=== PATIENT | female | born 1975 | race Caucasian/White ===

== ENCOUNTER → 2016-05-08 | Outpatient (CLI) | payer OTHER ==
[~2016-05-08] MED LIST: ADVIN25/60 INH; ALBU18002 INH; AMIT25TA9 PO; ARIP1TAB8 PO; CLONAZEPAM PO; FLUO40CA8 PO
--- NOTE | 2016-05-09 17:13 | MAMMOGRAPHY REPORT ---
BILATERAL DIGITAL SCREENING MAMMOGRAM TOMOSYNTHESIS WITH CAD: 05/08/2016 CLINICAL HISTORY: Routine screening. Baseline exam. TECHNIQUE: Breast tomosynthesis in addition to standard 2D mammography was performed. Current study was also evaluated with a Computer Aided Detection (CAD) system. COMPARISON: No prior exams were available for comparison. BREAST COMPOSITION: The tissue of both breasts is heterogeneously dense, which may obscure small ma sses. FINDINGS: There is a 10 mm nodular asymmetry in the lateral middle one third of the right breast on the CC view with an equivocal mass on the corresponding tomosynthesis images. Although this could represent normal overlapping tissue, additional spot compression tomosynthesis views and possibly ul trasound are recommended. There are possible microcalcifications in the medial right breast, warran ting additional spot magnification views. No other suspicious mass, architectural distortion or cluster of microcalcifications is seen bilater ally. IMPRESSION: ACR BI-RADS CATEGORY 0: INCOMPLETE EVALUATION: NEED ADDITIONAL IMAGING EVALUATION The 10 mm asymmetry in the lateral right breast and possible microcalcifications in the medial right breast need additional imaging evaluation. The patient will be called to schedule an appointment. Approximately 10% of breast cancers are not detected with mammography. A negative mammographic repor t should not delay biopsy if a clinically suggestive mass is present. Mariela Maier M.D. ay/:05/09/2016 15:36:41 Willow Machine Operator: Vangie GOVEA(Vahid)(Shelbi), [facility] letter sent: Addl Imaging 0 BI-RADS Code: ACR BI-RADS Category 0: Incomplete Evaluation: Need Additional Imaging Evaluation
== END | disposition home or self-care (01) ==
LOC: MERGE 05-01 10:55 → UNMERGE 05-01 10:55 → C.MAMM 09:26
PROVIDERS: ATTEND Obstetrics & Gynecology
DX: Z12.31 Encounter for screening mammogram for malignant neoplasm of breast (principal); N64.89 Other specified disorders of breast

== ENCOUNTER → 2016-05-28 | Outpatient (CLI) | payer OTHER ==
--- NOTE | 2016-05-29 12:26 | MAMMOGRAPHY REPORT ---
UNILATERAL RIGHT DIGITAL DIAGNOSTIC MAMMOGRAM TOMOSYNTHESIS AND TARGETED RIGHT ULTRASOUND: 05/28/2016 CLINICAL HISTORY: 40-year-old woman called back from baseline screening mammogram for a possible lob ulated 12 mm mass in the lateral right breast and possible microcalcifications in the medial right b reast. TECHNIQUE: Spot compression tomosynthesis right CC and ML views and spot magnification right CC and ML views were obtained. COMPARISON: Comparison is made to exam dated: 05/08/2016 mammogram - [facility]. BREAST COMPOSITION: The tissue of the right breast is heterogeneously dense, which may obscure smal l masses. FINDINGS: Spot magnification views of the right medial breast demonstrate a single linear calcifica tion along a tubular blood vessel in the medial breast, compatible with minimal vascular calcificati on. There is no evidence of a suspicious cluster of microcalcifications within the breast. Spot compression tomosynthesis views of the right breast demonstrate persistence of a 6.6 x 11.0 mm lobulated and circumscribed mass in the upper outer middle one third of the breast. Further charact erization with ultrasound was performed. Real-time high-resolution ultrasound was performed in the lateral right breast. In the 11:00 axis, 4 cm from the nipple, there is an isoechoic lobulated triangular mass without significant increased vascularity. It measures approximately 6.3 x 5.0 x 7.4 mm and this location and shape correlate wel l with the mammographic mass. This is indeterminate and could represent an isoechoic fibroadenoma o r fibroadenolipoma. Definitive characterization with tissue sampling is recommended. IMPRESSION: ACR BI-RADS CATEGORY 4: SUSPICIOUS, TARGETED ULTRASOUND ACR BI-RADS CATEGORY 4: SUSPICI OUS 1. Ultrasound guided core needle biopsy is recommended for an indeterminate isoechoic solid 7 mm ma ss in the 11:00 right breast which could represent a fibroadenoma or fibroadenolipoma. 2. The possible microcalcifications in the medial right breast simply represent a single linear alaina cification along the blood vessel, which is benign. No further workup is needed at this time. These results and recommendations were discussed with the patient at the time of the exam. She tent atively scheduled the right breast ultrasound guided core biopsy prior to leaving our department. Approximately 10% of breast cancers are not detected with mammography. A negative mammographic repor t should not delay biopsy if a clinically suggestive mass is present. Mariela Maier M.D. ay/:05/28/2016 14:49:58 Miller Helper: Ro POOLE)(M), [facility] letter sent: Abnormal 4/5 BI-RADS Code: ACR BI-RADS Category 4: Suspicious Ultrasound BI-RADS: ACR BI-RADS Category 4: Suspic ious
== END | disposition home or self-care (01) ==
LOC: C.MAMM 13:43
PROVIDERS: ATTEND Obstetrics & Gynecology
DX: N63 Unspecified lump in breast (principal); R92.0 Mammographic microcalcification found on diagnostic imaging of breast

== ENCOUNTER → 2016-06-11 | Outpatient (CLI) | payer OTHER ==
--- NOTE | 2016-06-11 13:36 | Discharge Instructions ---
Discharge Instructions Procedure Procedure Date: Jun 11, 2016. Reason for visit: Right Mass. Discharge Discharge Date: Jun 11, 2016. Discharge Diagnosis: post right breast ultrasound guided core biopsy Instructions Activity Recommendations: Additional Limitations (see below) Return to School/Work: no limitations Recommended Home Diet: No Limitations Provider Instructions: ACTIVITY RECOMMENDATIONS: * No lifting, pushing, pulling or exercising the affected side for three days. RETURN TO SCHOOL/WORK: * You may return to work/school after the procedure, but do not perform any strenuous activities for 24 to 48 hours. MEDICATIONS: * Tylenol (two 325 mg) every four to six hours if needed for mild pain (if not allergic to Tylenol). DIET: * Resume previous diet. SPECIAL CARE INSTRUCTIONS: * Keep biopsy site dry for 24 hours. May shower after 24 hours, but do not soak (bathe) incision. * May remove Tegaderm (plastic patch) tomorrow AFTER showering. * Leave the steri-strips on for one week. Allow the steri-strips to fall off by themselves. If not off after one week, you may remove them. You may place a Bandaid crosswise over the strips, if desired. * Apply ice 10 minutes on and 10 minutes off as needed. * Wear a bra at bedtime to sleep more comfortably for 2-3 days. * Your referring physician should have the results after approximately 5 to 7 business days. * Call for unusual bleeding, fever, drainage, etc or if you have any questions call [phone] during normal business hours or after hours call Dr Maier, . FOLLOW UP VISIT: Follow-up with Referring Physician as scheduled. Allergies Coded Allergies: ALLERGY2 (Verified Adverse Reaction, Severe, HIVES, 02/06/13) SKIN EACTION (RASH, BLISTERING, ITCHING, HIVES) RE[place]ED [place] [facility] [place] WYATT DOMINGUEZ Recommendations: Call your doctor if: * Temperature above 101 degrees * Pain not relieved by pain medicine ordered * There is increased drainage or redness from any incision * You have any unanswered questions or concerns. Your Doctors Instructions noted above were prepared by provider Mariela Maier. Patient Signature Section: Patient Instructions Signature Page Mary Mukherjee Patient (or Guardian) Signature/Date: I have read and understand the instructions given to me by my caregivers. Caregiver/RN/Doctor Signature/Date: The above-named patient and/or guardian has received patient instructions on this date. + Original Patient Signature Page (only) stays with chart. Please make copy for patient.
--- NOTE | 2016-06-11 16:08 | MAMMOGRAPHY REPORT ---
ULTRASOUND GUIDED BIOPSY RIGHT BREAST: 06/11/2016 CLINICAL HISTORY: 40 year-old woman with an indeterminate isoechoic solid mass in the 11:00 right br east presents for ultrasound guided core needle biopsy. COMPARISON: Comparison is made to exams dated: 05/28/2016 ultrasound, 05/28/2016 mammogram, 05/08/2016 mammogram, and 06/11/2016 mammogram - [facility]. PATIENT CONSENT: The procedure, risks and benefits were discussed with the patient and informed writ ten consent was obtained. Specific risks to this procedure include: bleeding, infection, puncture of adjacent structure, nontarget biopsy, sampling error, metal allergy and medication reaction. PROCEDURE DESCRIPTION: A time out was performed and the right breast was agreed as the site of biops y. The skin was prepped and draped in the usual sterile fashion. The isoechoic solid mass in the 11: 00 right breast was chosen as the target for biopsy. Subcutaneous and intraparenchymal 1% buffered l idocaine was administered as local anesthesia. A skin incision was made. Through the incision, 3 sa mples were taken with a 14 gauge Achieve biopsy device. A metallic marker was placed at the biopsy s ite. Hemostasis was achieved after manual compression. The patient tolerated the procedure well and there was no immediate complication. The samples were sent to the pathology department in an approp riately labeled container. Postprocedure right CC and ML tomosynthesis images were obtained. There is a new ribbon-shaped meta llic biopsy marker in the 11:00 right breast, at the site of the biopsied mass. There is mammograph icsonographic correlation of the originally identified lobulated mass seen on the 05/08/2016 screen ing mammogram. IMPRESSION: ULTRASOUND GUIDED BIOPSY Status post ultrasound guided core needle biopsy of an indeterminate solid mass in the 11:00 right b reast, with biopsy marker placed at the site. The patient will receive notification of the biopsy results from her referring physician. Mariela Maier M.D. ay/:06/11/2016 15:17:29 Sorter/Assay Tech: Brittany Brandon, [facility]
--- NOTE | 2016-06-13 14:54 | MAMMOGRAPHY REPORT ---
UNILATERAL RIGHT DIGITAL DIAGNOSTIC MAMMOGRAM TOMOSYNTHESIS: 06/11/2016 CLINICAL HISTORY: Status post ultrasound-guided core needle biopsy of an isoechoic to hypoechoic serina id mass in the 11:00 right breast. Please refer to the report from right breast ultrasound guided core biopsy performed at the same cecilia e for full detail. IMPRESSION: POST PROCEDURE IMAGING FOR MARKER PLACEMENT Please refer to the report from right breast ultrasound guided core biopsy performed at the same cecilia e for full detail. Approximately 10% of breast cancers are not detected with mammography. A negative mammographic repor t should not delay biopsy if a clinically suggestive mass is present. Mariela Maier M.D. ay/:06/11/2016 13:38:29 Aerophysics Engineer: Brittany Brandon, [facility] BI-RADS Code: Post Procedure Imaging For Marker Placement
== END | disposition home or self-care (01) ==
LOC: C.MAMM 12:48
PROVIDERS: ATTEND Obstetrics & Gynecology
DX: N60.31 Fibrosclerosis of right breast (principal)

== ENCOUNTER → 2016-10-17 | Outpatient (CLI) | payer OTHER ==
--- NOTE | 2016-10-17 09:07 | DIAGNOSTIC IMAGING REPORT ---
ABDOMEN COMPLETE (US) CLINICAL HISTORY: Epigastric and chest pain. COMPARISON STUDY: Abdominal ultrasound March 24, 2013. FINDINGS: Note is made of a 1.1 cm right hepatic lobe cyst which is similar to prior exam. There is no biliary ductal dilatation. The common bile duct measures 4 mm in caliber. The gallbladder is normal. There are no gallstones. The pancreas is within normal limits although the head and tail are partially obscured by overlying bowel gas. The size of the spleen is normal, measuring 10.2 cm in maximal dimension. The right kidney measures 10.3 x 3.8 x 3.9 cm and the left measures 10.4 x 4.2 x 4.1 cm. There is no hydronephrosis. There is a possible 4 mm left renal calculus. Caliber of the abdominal aorta is normal. Visualized portions of the IVC are patent. IMPRESSION: 1. No gallstones or biliary ductal dilatation. 2. No hydronephrosis. 3. Possible nonobstructing 4 mm left renal calculus. Electronically signed by: Hubert Santana M.D. 10/17/2016 9:06 AM Dictated Date/Time: 10/17/2016 9:03 AM
== END | disposition home or self-care (01) ==
LOC: C.ULTR 08:12
PROVIDERS: ATTEND Internal Medicine Gastroenterology
DX: R10.13 Epigastric pain (principal); R07.9 Chest pain, unspecified

== ENCOUNTER → 2016-10-22 | Day surgery (SDC) | payer OTHER ==
[2016-10-18 15:25] VITALS: Ht 152.4 cm; Wt 66.8 kg
[~2016-10-22] VITALS: Ht 152.4 cm; Wt 66.8 kg
[~2016-10-22] MED LIST changes: +ATROPINE SULFATE 0.1 MG/ML 5ML SYR IV PRN; +EpHEDrine SULFATE INJ 50 MG/ML AMP IV PRN; +LIDOCAINE HCL 2% 2 ML VIAL (20MG/ML) ONE; +PROPOFOL IV EMULSION 10 MG/ML 20 ML VIAL IV ONE
[2016-10-22 14:46] VITALS: TEMP 36.9
--- NOTE | 2016-10-22 15:07 | Endo History and Physical ---
History & Physical Date of Service: Oct 22, 2016. Chief Complaint: chest pain, epigastric pain Referring Physician: Heather History of Present Illness For EGD with Ch placement Past Surgical History Hx Cardiac Surgery: No Hx Internal Defibrillator: No Hx Pacemaker: No Hx Abdominal Surgery: Yes ( X2) Hx of Implantable Prosthesis: No Hx Post-Op Nausea and Vomiting: No Hx Cancer Surgery: No Hx Thoracic Surgery: No Hx Orthopedic: No Hx Urinary Tract Surgery: No Family History None Social History Smoking Status: Never Smoker Hx Substance Use: No Hx Alcohol Use: Yes (SOCIAL) Allergies Coded Allergies: ALLERGY2 (Verified Adverse Reaction, Severe, HIVES, 10/22/16) SKIN EACTION (RASH, BLISTERING, ITCHING, HIVES) REPORTED [place] INJE[place] [facility] [place] Etelvina MCFARLANE RN Uncoded Allergies: ANTIBIOTIC (Allergy, Unknown, RASH, 10/18/16) PT UNSURE NAME OF MEDICATION Current Medications Reported Home Medications Medications Dose Route/Sig Max Daily Dose Days Date Category Advair Diskus 250/50 60 Dose (Fluticasone Prop/Salmeterol) 1 Ea Aerp 1 Puff INH BID PRN 10/18/16 Reported Proair Respiclick (Albuterol Sulfate) 108 Mcg/Act Aer 2 Puffs INH Q4 PRN 10/18/16 Reported [Clonazepam] 1 Tab PO BID 10/18/16 Reported Elavil (Amitriptyline Hcl) 25 Mg Tab 25 Mg PO HS 10/18/16 Reported Abilify (Aripiprazole) 10 Mg Tab 10 Mg PO QPM 10/18/16 Reported Prozac (Fluoxetine HCl) 40 Mg Cap 40 Mg PO QAM 10/18/16 Reported Vital Signs Weight (Kilograms): 66.82 Height (Feet): 5 Height (Inches): 0 Date Time Temp Pulse Resp B/P (MAP) Pulse Ox O2 Delivery O2 Flow Rate FiO2 10/22/16 14:46 36.9 87 18 123/77 (92) 100 Room Air Physical Exam General Appearance: WD/WN Respiratory/Chest: Respiratory effort: no dyspnea Cardiovascular: Heart Auscultation: RRR Abdomen: Inspection & Palpation: soft Assessment and Plan Chest pain for EGD with Ch
--- NOTE | 2016-10-22 15:52 | Discharge Instructions ---
Endoscopy Patient Instructions Date / Procedure(s) Performed Oct 22, 2016. EGD Allergy Information Coded Allergies: ALLERGY2 (Verified Adverse Reaction, Severe, HIVES, 10/22/16) SKIN EACTION (RASH, BLISTERING, ITCHING, HIVES) REPORTED AFTER [place] INJE[place] [facility] [place]ERGY Etelvina MCFARLANE RN Uncoded Allergies: ANTIBIOTIC (Allergy, Unknown, RASH, 10/18/16) PT UNSURE NAME OF MEDICATION Discharge Date / Findings Oct 22, 2016. Ch placement Medication Instructions Restart Stopped Medication(s): resume meds except acid reducing meds Reported Home Medications Medications Dose Route/Sig Max Daily Dose Days Date Category Advair Diskus 250/50 60 Dose (Fluticasone Prop/Salmeterol) 1 Ea Aerp 1 Puff INH BID PRN 10/18/16 Reported Proair Respiclick (Albuterol Sulfate) 108 Mcg/Act Aer 2 Puffs INH Q4 PRN 10/18/16 Reported [Clonazepam] 1 Tab PO BID 10/18/16 Reported Elavil (Amitriptyline Hcl) 25 Mg Tab 25 Mg PO HS 10/18/16 Reported Abilify (Aripiprazole) 10 Mg Tab 10 Mg PO QPM 10/18/16 Reported Prozac (Fluoxetine HCl) 40 Mg Cap 40 Mg PO QAM 10/18/16 Reported Provider Instructions Activity Restrictions - No exercising or heavy lifting for 24 hours. - Do not drink alcohol the day of the procedure. - Do not drive a car or operate machinery until the day after the procedure. - Do not make any important decisions or sign important papers in 24 hours after the procedure. Following Day: - Return to full activity which may include returning to work/school. Diet Start your diet with liquids and light foods (jello, soup, juice, toast). Then eat your usual diet if not nauseated. Treatment For Common After Affects For mild abdominal pain, bloating, or excessive gas: - Rest - Eat lightly - Lie on right side Follow-Up Information Follow-up with Heather as scheduled Anesthesia Information What You Should Know You have had a procedure that required some medicine to reduce anxiety and discomfort. This treatment is called moderate sedation. After receiving the treatment, you may be sleepy, but you will be able to breathe on your own. The effects of the treatment may last for several hours. Follow these instructions along with Activity/Diet recommendations noted above: * Do NOT do anything where dizziness or clumsiness would be dangerous. * Rest quietly at home today, then you can be up and about tomorrow. * Have a responsible person stay with you the rest of today. * You may have had an I.V. today. If so, you may take the dressing off later today. Recommendations Call your doctor if: * Trouble breathing * Continuous vomiting for more than 24 hours * Temperature above 101 degrees * Severe abdominal pain or bloating * Pain not relieved by pain medicine ordered * There is increased drainage or redness from any incision * A large amount of rectal bleeding greater than 2-3 tablespoons. (If you had a polyp/s removed or have hemorrhoids, a small amount of blood - from the rectum is to be expected.) * You have any unanswered questions or concerns. IN THE EVENT OF A SERIOUS EMERGENCY, GO TO THE NEAREST EMERGENCY ROOM Your discharge instructions were prepared by provider Magnus Ag. Patient Instructions Signature Page Mary Mukherjee Patient (or Guardian) Signature/Date: I have read and understand the instructions given to me by my caregivers. Caregiver/RN/Doctor Signature/Date: The above-named patient and/or guardian has received patient instructions on this date. + Original Patient Signature Page (only) stays with chart. Please make copy for patient.
--- NOTE | 2016-10-22 16:13 | GI REPORT ---
Procedure Date: 10/22/2016 3:05 PM Procedure: Upper GI endoscopy Indications: Epigastric abdominal pain, Chest pain (non cardiac) Medicines: Propofol total dose 320 mg IV, Lidocaine 40 mg IV Complications: Recording device failure. Second clip placed. Estimated Blood Loss: Estimated blood loss: none. Procedure: Pre-Anesthesia Assessment: - Prior to the procedure, a History and Physical was performed, and patient medications, allergies and sensitivities were reviewed. The patient's tolerance of previous anesthesia was reviewed. - The risks and benefits of the procedure and the sedation options and risks were discussed with the patient. All questions were answered and informed consent was obtained. - Prior to the procedure, a History and Physical was performed, and patient medications, allergies and sensitivities were reviewed. The patient's tolerance of previous anesthesia was reviewed. - The risks and benefits of the procedure and the sedation options and risks were discussed with the patient. All questions were answered and informed consent was obtained. After obtaining informed consent, the endoscope was passed under direct vision. Throughout the procedure, the patient's blood pressure, pulse, and oxygen saturations were monitored continuously. The On-site loaner was introduced through the mouth, and advanced to the second part of duodenum. The scope was introduced through the mouth, and advanced to the second part of duodenum. The upper GI endoscopy was accomplished without difficulty. The patient tolerated the procedure well. Findings: Localized mild mucosal variance characterized by discoloration was found in the middle third of the esophagus. Biopsies were taken with a cold forceps for histology. Estimated blood loss was minimal. The CARABALLO capsule with delivery system was introduced through the mouth and advanced into the esophagus, such that the CARABALLO pH capsule was positioned 29 cm from the incisors, which was 6 cm proximal to the EG junction. The CARABALLO pH capsule was then deployed and attached to the esophageal mucosa. The delivery system was then withdrawn. Endoscopy was utilized for probe placement and diagnostic evaluation. The entire examined stomach was normal. The examined duodenum was normal. Impression: - Esophageal mucosal variant. Biopsied. - Normal stomach. - Normal examined duodenum. - The CARABALLO pH capsule was deployed. Recommendation: - Discharge patient to home (ambulatory). - Return to primary care physician Larry Mobley MD 10/22/2016 4:12:18 PM This report has been signed electronically. Note Initiated On: 10/22/2016 3:05 PM I attest to the content of the Intraoperative Record and orders documented therein, exceptions below
--- NOTE | 2016-10-22 16:35 | Anesthesiology Progress Note ---
Anesthesia Post Op Note Date & Time Oct 22, 2016 at 16:35 Vital Signs Pain Intensity: 0 Vital Signs Past 12 Hours Date Time Temp Pulse Resp B/P (MAP) Pulse Ox O2 Delivery O2 Flow Rate FiO2 10/22/16 16:30 80 20 119/71 (87) 100 Room Air 10/22/16 16:15 83 20 101/65 (77) 100 Room Air 10/22/16 14:46 36.9 87 18 123/77 (92) 100 Room Air Notes Mental Status: alert / awake / arousable, participated in evaluation Pt Amnestic to Procedure: Yes Nausea / Vomiting: adequately controlled Pain: adequately controlled Airway Patency, RR, SpO2: stable & adequate BP & HR: stable & adequate Hydration State: stable & adequate Anesthetic Complications: no major complications apparent
[2016-10-22 16:45] VITALS: BP 119/78; PULSE 77; O2SAT 100
--- NOTE | 2016-10-29 16:14 | OPERATIVE REPORT ---
DATE OF OPERATION: 10/29/2016 PROCEDURE PERFORMED: 48-hour ambulatory pH monitoring with Ch. INDICATIONS: Epigastric and chest pain unresponsive to proton pump inhibitors. PROCEDURE IN DETAIL: The patient was off all aspirin containing medications for 2 weeks a minimum prior to the procedure. The patient underwent an EGD with Ch clip placed 6 cm above the ileum. The first recording device malfunctioned, so a second clip was placed and this functioned normally. Position of the clips was confirmed endoscopically. The clips stayed in place the entire 48 hours and with limited recording. The patient had minimal reflux episodes during the 48 hours. Her DeMeester score overall was 10.9, which is below the threshold for significant acid reflux. During the 48-hour period, she recorded 53 episodes of heartburn, only 2 of which correlated with reflux episodes. She had 16 episodes of chest pain, 2 of which correlated with reflux symptoms and 2 episodes of regurgitation, one of which correlated to reflux. This number is probably too small for regurgitation to interpret. IMPRESSION: The patient does not meet the threshold for significant acid reflux and there is very poor correlation with her symptoms of heartburn, chest pain and probably regurgitation to attribute them to acid reflux. I attest to the content of the Intraoperative Record and any orders documented therein. Any exception s are noted below.
== END | disposition home or self-care (01) ==
LOC: C.GI 14:08
PROVIDERS: ATTEND Internal Medicine Gastroenterology
DX: R07.9 Chest pain, unspecified (principal); R10.13 Epigastric pain; J45.909 Unspecified asthma, uncomplicated; E78.5 Hyperlipidemia, unspecified; K21.9 Gastro-esophageal reflux disease without esophagitis

== ENCOUNTER → 2017-07-18 | Outpatient (CLI) | payer BC ==
[~2017-07-18] MED LIST changes: -ATROPINE SULFATE 0.1 MG/ML 5ML SYR IV PRN; -EpHEDrine SULFATE INJ 50 MG/ML AMP IV PRN; -LIDOCAINE HCL 2% 2 ML VIAL (20MG/ML) ONE; -PROPOFOL IV EMULSION 10 MG/ML 20 ML VIAL IV ONE
== END | disposition home or self-care (01) ==
LOC: C.PAPS 16:21
PROVIDERS: ATTEND Obstetrics & Gynecology
DX: Z01.419 Encounter for gynecological examination (general) (routine) without abnormal findings (principal)

== ENCOUNTER 2021-03-30 16:41 | Inpatient (IN) ==
--- NOTE | 2021-03-30 17:25 | Emergency Department Note ---
Impression & Plan Depression with suicidal ideation ED Provider Note NAME: PHILIP JOHNSON AGE: 45 SEX: F : 1975 ARRIVES VIA: Walk-In INFORMANT: Patient, ED PROVIDER(S): Vikas Ramirez DO CHIEF COMPLAINT: Suicidal ideation HPI: The patient is a 45-year-old female who presented to emergency department for mental health evaluation. The patient's been having depression as well as suicidal ideation. The patient has been having multiple stressors at home including with her children as well as with her significant other. She did go t hrough a divorce sometime ago but also had a break-up about a month ago. She has been having thoughts of hurting herself. She states that she is been taking extra doses of her benzodiazepine. She does not have any acute plan for suicidal gesture at this time but still has feelings that she does not want to be here and wishes she would . The patient was seen by her primary psychiatrist today and sent to the emergency department for further evaluation for possible inpatient management. ROS: See above HPI for pertinent positives & negatives. A total of 10 systems reviewed and were otherwise negative. PAST MEDICAL HISTORY: See Below PAST SURGICAL HISTORY: See Below FAMILY HISTORY: See Below SOCIAL HISTORY: See Below HOME MEDICATIONS: See Below ALLERGIES: See Below VITALS: See Below PHYSICAL EXAMINATION: GENERAL: The patient is awake. The patient is mildly anxious appearing. EARS, NOSE, MOUTH AND THROAT: The nose is without any evidence of any deformity. NECK: The neck is nontender and supple. RESPIRATORY: Normal respiratory effort is noted there is no evidence of wheezing rhonchi or rales CARDIOVASCULAR: Regular rate and rhythm noted there no murmurs rubs or gallops normal S1 normal S2. GASTROINTESTINAL: The abdomen is soft. Abdomen is nontender. MUSCULOSKELETAL/EXTREMITIES: There is no evidence of gross deformity full range of motion is noted in the hips and shoulders. SKIN: There is no obvious evidence of any rash. There are no petechiae, pallor or cyanosis noted. NEUROLOGIC: Patient is awake alert and oriented x3 PSYCH: The patient is awake and alert. She makes poor eye contact her most the evaluation. She is currently denying any acute suicidal plan but still admits that she is taking her medications inappropriately and thoughts of not wanting to be alive. MEDICAL DECISION MAKING: The patient is a 45-year-old female who presented to the emergency department for an evaluation of depression. The patient went to see her psychiatrist today. She was having suicidal ideation which was very loose. She had no formal plan but kept saying that she had the ability to take an overdose of her medications. She started taking her medications and noncompliant fashion recently. She did not have any specific plan at this time and was medically cleared in the emergency department. The patient was evaluated by the mental health case maker. The patient was then evaluated by the mental health case maker from 3 S. She was felt to be a good candidate for inpatient management. The 201 was signed by myself. Triage Nursing notes reviewed. Prior medical records reviewed Vital Signs: reviewed and remarkable for no significant abnormalities Differential diagnosis: Mood disorder, infection, hypoglycemia, electrolyte abnormalities, cardiac sources, intracerebral event, toxicologic, trauma, neurologic, as well as other pathologies. ER treatment provided: See below Diagnostics interpreted by me: ECG: none Laboratory studies: As stated above and show below. Imaging studies: See below Consultation(s): none Past Med/Surg History Medical History Dyspnea on exertion History of high cholesterol NO MEDS Mild persistent asthma Palpitations Uterine fibroid Surgical History History of hysterectomy Hx of section X2 Hx of colonoscopy Family History Son Asthma Family/Other Breast cancer Paternal Cousin Grandmother (Maternal) Uterine cancer Denies family history of Ovarian cancer Social History Smoking Status: Never smoker Hx Alcohol Use: Yes Alcohol type: beer, wine and hard liquor Hx Substance Use: No Preferred Language: Barbadian Communication Ability: Effective Beliefs That Will Affect Care: None marital status: Legally Current Living Situation: Family current occupational status: employed Feels Safe at Home: Yes Assistive Devices: None Allergies Allergies Allergy/AdvReac Type Severity Reaction Status Date / Time ANTIBIOTIC Allergy Unknown RASH- Uncoded 03/30/21 17:40 PATIENT DOES NOT KNOW WHAT MEDICATION Home Meds Home Medications Medication Instructions Recorded Confirmed lisdexamfetamine 50 mg capsule 50 mg PO QAM 02/12/18 03/30/21 (Vyvanse) melatonin 10 mg tablet 10 mg PO HS 02/12/18 03/30/21 metformin 500 mg tablet 2,000 mg PO DAILY 05/18/19 03/30/21 amitriptyline 50 mg tablet 100 mg PO HS 03/30/21 03/30/21 clonazepam 1 mg tablet 0.5 mg PO QAM 03/30/21 03/30/21 clonazepam 1 mg tablet 1 mg PO HS 03/30/21 03/30/21 lithium carbonate 150 mg capsule 150 mg PO BID 03/30/21 03/30/21 ropinirole 0.5 mg tablet 0.5 mg PO HS 03/30/21 03/30/21 rosuvastatin 5 mg tablet 5 mg PO PM 03/30/21 03/30/21 Results & Data (ED) Vital Signs Vital Signs - 24 hr 03/30/21 16:46 03/30/21 18:19 Temperature 36.7 C 37.3 C Temperature Source Temporal Artery Scan Oral Pulse Rate 108 H Pulse Rate [Finger] 96 H Pulse Rhythm [Finger] Regular Pulse Strength [Finger] Normal Respiratory Rate 18 16 Respiratory Effort / Characteristics Non-Labored Spontaneous Respiratory Depth Normal Blood Pressure 142/91 H Blood Pressure [Right Arm] 128/85 Blood Pressure Mean 108 Blood Pressure Mean [Right Arm] 99 Blood Pressure Position [Right Arm] Sitting Pulse Oximetry 99 96 Oxygen Delivery Method Room Air Room Air Sepsis Recent Fever Within 48 Hours No Sepsis New/Unexplained Change in Mental Status N/A Sepsis Action Taken by Nursing No Action Required Home Medications Current Medication List: was personally reviewed by me Laboratory Data Attestation: I reviewed the patient's lab results. Result diagrams: 03/30/21 17:46 03/30/21 17:46 Lab Results 03/30/21 03/30/21 03/30/21 Range/Units 17:14 17:14 17:14 WBC (4.8-10.8) K/uL RBC (4.2-5.4) M/uL Hgb (12.0-16.0) g/dL Hct (37-47) % MCV (80-100) fL MCH (25-34) pg MCHC (32-36) g/dL RDW Std Deviation (36.4-46.3) fL RDW Coeff of Nakul (11.5-14.5) % Plt Count (130-400) K/uL MPV (7.4-10.4) fL Immature Gran % (Auto) % Neut % (Auto) % Lymph % (Auto) % Bremer % (Auto) % Eos % (Auto) % Baso % (Auto) % Neut # (Auto) (1.4-6.5) K/uL Lymph # (Auto) (1.2-3.4) K/uL Bremer # (Auto) (0.11-0.59) K/uL Eos # (Auto) (0-0.5) K/uL Baso # (Auto) (0-0.2) K/uL Immature Gran # (Auto) (0.00-0.02) K/uL Sodium (136-145) mmol/L Potassium (3.5-5.1) mmol/L Chloride (98-107) mmol/L Carbon Dioxide (21-32) mmol/L Anion Gap (3-11) BUN (7-18) mg/dl Creatinine (0.6-1.2) mg/dl Est Cr Clr Drug Dosing ml/min Est GFR ( Amer) ml/min Est GFR (Non-Af Amer) ml/min BUN/Creatinine Ratio (10-20) Glucose (70-99) mg/dl Calcium (8.5-10.1) mg/dl Total Bilirubin (0.2-1) mg/dl AST (15-37) U/L ALT (12-78) Alkaline Phosphatase (45-117) U/L Total Protein (6.4-8.2) gm/dl Albumin (3.4-5.0) gm/dl Globulin (2.5-4.0) gm/dl Albumin/Globulin Ratio (0.9-2) TSH (0.300-4.500) uIu/ml HCG, Qual (Negative) Urine Color Dark Yellow Urine Appearance Cloudy A (Clear) Urine pH 5.0 (4.5-7.5) Ur Specific Bryan 1.026 (1.000-1.030) Urine Protein Negative (Negative) Urine Glucose (UA) Negative (Negative) Urine Ketones Trace H (Negative) Urine Blood Trace H (Negative) Urine Nitrite Negative (Negative) Urine Bilirubin Negative (Negative) Urine Urobilinogen Negative (Negative) Ur Leukocyte Esterase Negative (Negative) Urine WBC (Auto) 10-30 H (0-5) /hpf Urine RBC (Auto) 0-4 (0-4) /hpf U Hyaline Cast (Auto) 0 (0-5) /lpf U Epithel Cells (Auto) >30 H (0-5) /lpf Urine Bacteria (Auto) 2+ H (Negative) Urine Crystals Not Reportable Calcium Oxalate Crystal Present A (None Prsent) Urine Mucus Present A (None Prsent) Salicylates (2.8-20) mg/dl Urine Opiates Screen Neg (Neg) Ur Methadone, Qual Neg (Neg) Acetaminophen (10-30) ug/ml Urine Barbiturates Neg (Neg) Ur Phencyclidine (PCP) Neg (Neg) U Amphetamin/Meth Scrn Pos H (Neg) MDMA (Ecstasy) Screen Neg (Neg) U Benzodiazepines Scrn Neg (Neg) [place] (0.6-1.2) mmol/L Ur Cocaine Metabolite Neg (Neg) U Marijuana (THC) Screen Neg (Neg) Ethyl Alcohol mg/dL (0-3) mg/dl SARS-CoV-2, RNA, NAAT NEGATIVE (NEGATIVE) 03/30/21 03/30/21 03/30/21 Range/Units 17:46 17:46 17:46 WBC 10.91 H (4.8-10.8) K/uL RBC 5.00 (4.2-5.4) M/uL Hgb 14.4 (12.0-16.0) g/dL Hct 42.1 (37-47) % MCV 84.2 (80-100) fL MCH 28.8 (25-34) pg MCHC 34.2 (32-36) g/dL RDW Std Deviation 39.0 (36.4-46.3) fL RDW Coeff of Nakul 12.8 (11.5-14.5) % Plt Count 332 (130-400) K/uL MPV 9.3 (7.4-10.4) fL Immature Gran % (Auto) 0.2 % Neut % (Auto) 78.5 % Lymph % (Auto) 17.5 % Bremer % (Auto) 3.4 % Eos % (Auto) 0.3 % Baso % (Auto) 0.1 % Neut # (Auto) 8.57 H (1.4-6.5) K/uL Lymph # (Auto) 1.91 (1.2-3.4) K/uL Bremer # (Auto) 0.37 (0.11-0.59) K/uL Eos # (Auto) 0.03 (0-0.5) K/uL Baso # (Auto) 0.01 (0-0.2) K/uL Immature Gran # (Auto) 0.02 (0.00-0.02) K/uL Sodium 136 (136-145) mmol/L Potassium 3.7 (3.5-5.1) mmol/L Chloride 104 (98-107) mmol/L Carbon Dioxide 28 (21-32) mmol/L Anion Gap 4.0 (3-11) BUN 16 (7-18) mg/dl Creatinine 0.82 (0.6-1.2) mg/dl Est Cr Clr Drug Dosing 75.5 ml/min Est GFR ( Amer) 99.5 ml/min Est GFR (Non-Af Amer) 85.8 ml/min BUN/Creatinine Ratio 19.4 (10-20) Glucose 100 H (70-99) mg/dl Calcium 9.6 (8.5-10.1) mg/dl Total Bilirubin 0.2 (0.2-1) mg/dl AST 16 (15-37) U/L ALT 40 (12-78) Alkaline Phosphatase 88 (45-117) U/L Total Protein 7.9 (6.4-8.2) gm/dl Albumin 3.9 (3.4-5.0) gm/dl Globulin 4.0 (2.5-4.0) gm/dl Albumin/Globulin Ratio 1.0 (0.9-2) TSH 2.850 (0.300-4.500) uIu/ml HCG, Qual (Negative) Urine Color Urine Appearance (Clear) Urine pH (4.5-7.5) Ur Specific Bryan (1.000-1.030) Urine Protein (Negative) Urine Glucose (UA) (Negative) Urine Ketones (Negative) Urine Blood (Negative) Urine Nitrite (Negative) Urine Bilirubin (Negative) Urine Urobilinogen (Negative) Ur Leukocyte Esterase (Negative) Urine WBC (Auto) (0-5) /hpf Urine RBC (Auto) (0-4) /hpf U Hyaline Cast (Auto) (0-5) /lpf U Epithel Cells (Auto) (0-5) /lpf Urine Bacteria (Auto) (Negative) Urine Crystals Calcium Oxalate Crystal (None Prsent) Urine Mucus (None Prsent) Salicylates < 1.7 L (2.8-20) mg/dl Urine Opiates Screen (Neg) Ur Methadone, Qual (Neg) Acetaminophen < 2 L (10-30) ug/ml Urine Barbiturates (Neg) Ur Phencyclidine (PCP) (Neg) U Amphetamin/Meth Scrn (Neg) MDMA (Ecstasy) Screen (Neg) U Benzodiazepines Scrn (Neg) [place] 0.2 L (0.6-1.2) mmol/L Ur Cocaine Metabolite (Neg) U Marijuana (THC) Screen (Neg) Ethyl Alcohol mg/dL (0-3) mg/dl SARS-CoV-2, RNA, NAAT (NEGATIVE) 03/30/21 03/30/21 Range/Units 17:46 17:46 WBC (4.8-10.8) K/uL RBC (4.2-5.4) M/uL Hgb (12.0-16.0) g/dL Hct (37-47) % MCV (80-100) fL MCH (25-34) pg MCHC (32-36) g/dL RDW Std Deviation (36.4-46.3) fL RDW Coeff of Nakul (11.5-14.5) % Plt Count (130-400) K/uL MPV (7.4-10.4) fL Immature Gran % (Auto) % Neut % (Auto) % Lymph % (Auto) % [place] % (Auto) % Eos % (Auto) % Baso % (Auto) % Neut # (Auto) (1.4-6.5) K/uL Lymph # (Auto) (1.2-3.4) K/uL Bremer # (Auto) (0.11-0.59) K/uL Eos # (Auto) (0-0.5) K/uL Baso # (Auto) (0-0.2) K/uL Immature Gran # (Auto) (0.00-0.02) K/uL Sodium (136-145) mmol/L Potassium (3.5-5.1) mmol/L Chloride (98-107) mmol/L Carbon Dioxide (21-32) mmol/L Anion Gap (3-11) BUN (7-18) mg/dl Creatinine (0.6-1.2) mg/dl Est Cr Clr Drug Dosing ml/min Est GFR ( Amer) ml/min Est GFR (Non-Af Amer) ml/min BUN/Creatinine Ratio (10-20) Glucose (70-99) mg/dl Calcium (8.5-10.1) mg/dl Total Bilirubin (0.2-1) mg/dl AST (15-37) U/L ALT (12-78) Alkaline Phosphatase (45-117) U/L Total Protein (6.4-8.2) gm/dl Albumin (3.4-5.0) gm/dl Globulin (2.5-4.0) gm/dl Albumin/Globulin Ratio (0.9-2) TSH (0.300-4.500) uIu/ml HCG, Qual Negative (Negative) Urine Color Urine Appearance (Clear) Urine pH (4.5-7.5) Ur Specific Bryan (1.000-1.030) Urine Protein (Negative) Urine Glucose (UA) (Negative) Urine Ketones (Negative) Urine Blood (Negative) Urine Nitrite (Negative) Urine Bilirubin (Negative) Urine Urobilinogen (Negative) Ur Leukocyte Esterase (Negative) Urine WBC (Auto) (0-5) /hpf Urine RBC (Auto) (0-4) /hpf U Hyaline Cast (Auto) (0-5) /lpf U Epithel Cells (Auto) (0-5) /lpf Urine Bacteria (Auto) (Negative) Urine Crystals Calcium Oxalate Crystal (None Prsent) Urine Mucus (None Prsent) Salicylates (2.8-20) mg/dl Urine Opiates Screen (Neg) Ur Methadone, Qual (Neg) Acetaminophen (10-30) ug/ml Urine Barbiturates (Neg) Ur Phencyclidine (PCP) (Neg) U Amphetamin/Meth Scrn (Neg) MDMA (Ecstasy) Screen (Neg) U Benzodiazepines Scrn (Neg) [place] (0.6-1.2) mmol/L Ur Cocaine Metabolite (Neg) U Marijuana (THC) Screen (Neg) Ethyl Alcohol mg/dL < 3.0 (0-3) mg/dl SARS-CoV-2, RNA, NAAT (NEGATIVE) Discharge Plan Visit Data Chief Complaint: Mental Health Evaluation Stated Complaint: MENTAL HEALTH EVAL ED Provider: Vikas Ramirez Discharge Problem: Depression with suicidal ideation Patient Disposition: Still a Patient Forms Stand Alone Forms: My [facility], Suicide Prevention Resources Prescriptions Prescriptions: No Action metformin 500 mg tablet 2,000 mg PO DAILY RF: 0 Vyvanse 50 mg Capsule 50 mg PO QAM RF: 0 melatonin 10 mg Tablet 10 mg PO HS RF: 0 clonazepam 1 mg tablet 0.5 mg PO QAM RF: 0 clonazepam 1 mg tablet 1 mg PO HS RF: 0 lithium carbonate 150 mg capsule 150 mg PO BID RF: 0 amitriptyline 50 mg tablet 100 mg PO HS RF: 0 ropinirole 0.5 mg tablet 0.5 mg PO HS RF: 0 rosuvastatin 5 mg tablet 5 mg PO PM RF: 0 Referrals Referrals: Karla Romero DO [Primary Care Provider] -
[2021-03-30 17:38] LABS: Appearance Urine Cloudy (Clear); Bacteria Urine Automated 2+ (Negative); Bilirubin Urine Negative (Negative); Blood Urine Trace (Negative); Color Urine Dark Yellow; Epithelial Cell Urine Auto >30 /lpf (0-5); Glucose Urine UA Negative (Negative); Ketones Urine Trace (Negative); Leukocyte Esterase Urine Negative (Negative); Nitrite Urine Negative (Negative); Protein Urine Negative (Negative); Specific Gravity Urine 1.026 (1.000-1.030); Urobilinogen Urine Negative (Negative)
[2021-03-30 17:53] LABS: Amphetamines+Metham, Urine Pos (Neg); Barbiturates, Urine Neg (Neg); Benzodiazepine, Urine Neg (Neg); Cocaine, Urine Neg (Neg); MDMA (Ecstacy), Urine Neg (Neg); Methadone, Urine Neg (Neg); Opiate, Urine Neg (Neg); Phencyclidine, Urine Neg (Neg)
[2021-03-30 18:03] LABS: Basophils # (auto) 0.01 K/uL (0-0.2); Basophils % (auto) 0.1 %; Eosinophils # (auto) 0.03 K/uL (0-0.5); Eosinophils % (auto) 0.3 %; Hematocrit (blood only) 42.1 % (37-47); Hemoglobin 14.4 g/dL (12.0-16.0); Immature Granulocytes # (auto) 0.02 K/uL (0.00-0.02); Immature Granulocytes % (auto) 0.2 %; Lymphocytes # (auto) 1.91 K/uL (1.2-3.4); Lymphocytes % (auto) 17.5 %; Mean Corpuscular Hemoglobin 28.8 pg (25-34); Mean Corpuscular Hgb Conc 34.2 g/dL (32-36); Mean Corpuscular Volume 84.2 fL (80-100); Mean Platelet Volume 9.3 fL (7.4-10.4); Monocytes # (auto) 0.37 K/uL (0.11-0.59); Monocytes % (auto) 3.4 %; Neutrophils # (auto) 8.57 K/uL (1.4-6.5); Neutrophils % (auto) 78.5 %; Platelet Count 332 K/uL (130-400); RDW Coefficient of Variation 12.8 % (11.5-14.5); White Blood Count 10.91 K/uL (4.8-10.8)
[2021-03-30 18:23] LABS: Albumin Level 3.9 gm/dl (3.4-5.0); BUN Creatinine Ratio 19.4 (10-20); Calcium 9.6 mg/dl (8.5-10.1); Creatinine Clr Calc Pharmacy 75.5 ml/min; Est GFR (African American) 99.5 ml/min; Est GFR (Non-African American) 85.8 ml/min; Potassium 3.7 mmol/L (3.5-5.1)
[2021-03-30 18:26] LABS: RBC Urine Automated 0-4 /hpf (0-4)
[2021-03-30 18:27] LABS: Calcium Oxalate Crystals Urine Present (None Prsent); Cast Urine Automated 0 /lpf (0-5); Mucus Urine Present (None Prsent)
[2021-03-30 18:30] LABS: Acetaminophen < 2 ug/ml (10-30); Lithium 0.2 mmol/L (0.6-1.2); Salicylate < 1.7 mg/dl (2.8-20)
[2021-03-30 18:34] LABS: Bilirubin,Total 0.2 mg/dl (0.2-1); Thyroid Stimulating Hormone 2.85 uIu/ml (0.300-4.500); Total Protein 7.9 gm/dl (6.4-8.2)
[2021-03-30 19:04] LABS: Pregnancy Test, Serum Negative (Negative)
[2021-03-30] MEDS ORDERED: MAGNESIUM HYDROXIDE SUSP 30 ML UDC PO PRN (21:27)
[2021-03-30] MEDS ORDERED: BISMUTH SUBSALICYLATE LIQD 236 ML PO PRN (21:27)
[2021-03-30] MEDS ORDERED: ALUMINUM/MAGNESIUM SUSP 30 ML UDC PO PRN (21:27)
[2021-03-30] MEDS ORDERED: SODIUM CHLORIDE 0.65% NA SOLN 45 ML (OCEAN) PRN (21:27)
[2021-03-30] MEDS: LITHIUM CARBONATE 300 MG TAB PO SCH (22:49)
[2021-03-30] MEDS: ROSUVASTATIN CALCIUM 5 MG TAB PO SCH (22:50)
[2021-03-30] MEDS: clonazePAM 1 MG TAB PO SCH (22:51)
[2021-03-30] MEDS: MELATONIN 3 MG TAB PO SCH (22:51)
[2021-03-30] MEDS: rOPINIRole HCL 0.25 MG TABLET PO SCH (22:51)
[2021-03-30] MEDS: AMITRIPTYLINE HCL 100 MG TAB PO SCH (22:51)
[2021-03-30] MEDS: metFORMIN HCL 500 MG TAB PO SCH (23:19)
[2021-03-31] MEDS: LISDEXAMFETAMINE DIMESYLATE PO SCH (08:31)
[2021-03-31] MEDS ORDERED: metFORMIN HCL 500 MG TAB PO SCH (09:00)
[2021-03-31] MEDS: metFORMIN HCL 500 MG TAB PO SCH ×2 (09:27→17:54)
[2021-03-31] MEDS: LITHIUM CARBONATE 300 MG TAB PO SCH (09:28)
[2021-03-31] MEDS: clonazePAM 0.5 MG TAB PO SCH (12:43)
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
[2021-03-31] MEDS: AMITRIPTYLINE HCL 100 MG TAB PO SCH (20:46)
[2021-03-31] MEDS: LITHIUM CARBONATE SLOW REL 300 MG TAB PO SCH (20:46)
[2021-03-31] MEDS: rOPINIRole HCL 0.25 MG TABLET PO SCH (20:47)
[2021-03-31] MEDS: MELATONIN 3 MG TAB PO SCH (20:47)
[2021-03-31] MEDS: ROSUVASTATIN CALCIUM 5 MG TAB PO SCH (20:48)
[2021-03-31] MEDS: clonazePAM 1 MG TAB PO SCH (20:49)
[2021-03-31] MEDS ORDERED: NON-FORMULARY MEDICATION (Melatonin 10 mg Tablet) PO SCH (22:00)
[2021-04-01 08:45] LABS: Estimated Average Glucose 131 mg/dl; Hemoglobin A1C 6.2 % (4.5-5.6)
[2021-04-01 08:53] LABS: Chol HDL Ratio 3; Cholesterol 126 mg/dl (0-200); HDL Cholesterol 42 mg/dl; LDL Cholesterol Calculated 60 mg/dl; Triglycerides 122 mg/dl (0-150); VLDL Cholesterol 24 mg/dl
[2021-04-01] MEDS: LISDEXAMFETAMINE DIMESYLATE PO SCH (09:49)
[2021-04-01] MEDS: metFORMIN HCL 500 MG TAB PO SCH ×2 (09:50→17:41)
[2021-04-01] MEDS: LITHIUM CARBONATE SLOW REL 300 MG TAB PO SCH ×2 (09:50→20:14)
[2021-04-01] MEDS: clonazePAM 0.5 MG TAB PO SCH (09:50)
--- NOTE | 2021-04-01 10:33 | Psychiatric Progress Note ---
Date of Service April 01, 2021 Impression / Recommendations Impression 45 yo female with depression with irritability, consistent with bipolar II disorder. (1) Depression with suicidal ideation: 04/01/21: reviewed labs, TCA level pending. Continue increased dose of lithium. Considering antidepressant depending on TCA level pending discussion with outpatient psychiatrist. 03/31/21: The patient was admitted to the [facility] ([facility] unit) on q15 min checks (behavioral with suicide precautions) for safety. The patient will participate in group, recreational, and milieu therapies and will be offered additional individual and family sessions as clinically appropriate. Risks/benefits/alternatives reviewed re: her current medications including toxicity in OD, will check EKG due to polypharm. Reviewed that lithium dose is subtherapeutic and would titrated with consideration of antidepressant in place of or in addition to Elavil. Continued scheduled dose of Klonopin for now but is a depressant. Inventory Assets Strengths: employed, wants better relationship with children Needs: improve self esteem and coping. Risk Factors Assessment Male: No : No Do You Have Access To A Gun?: No Mental Health Diagnoses: Yes Substance Use Disorders: No Previous Attempt: No Previous Psychiatric Hospitalization: No Protective Factors Assessment : No Responsible for Young Children: Yes Employed: Yes ([employer]) Supportive Family: Yes Interval History Identifying Information PHILIP JOHNSON is a 45-year-old F who currently lives in [place], has a history of bipolar depression, and was admitted on 03/30/21 21:20 on a 201 commitment for depression with suicidal ideation. Chief Complaint "I have a hard time redirecting my thoughts and I feel like my heart is beating fast". Review of Systems Sleep Information Total Hours of Sleep: 8.5 Sleep Comments: pt appeared to sleep 1.5 hrs during evening shift. pt on q-15 minute checks Meal Information Percent Meal Consumed - Breakfast: 100 Percent Meal Consumed - Lunch: 0 Percent Meal Consumed - Dinner: 100 Subjective Subjective Patient was seen & assessed and interval progress reviewed with nursing. Cooperative with unit routines, processing break up, and tolerating medications. Remains worried about work and caring for her 13 yo son. She is trying to use relaxation techniques and directed her to therapeutic CBT activities in the patient handbook. Physical Exam Psychiatric Orientation: alert and oriented x 3 Apperance: appropriately dressed and appropriately groomed Eye Contact: good eye contact Motor Behavior: no abnormal motor movements Speech: normal rate/rhythm/volume of speech Affect: + depressed affect Mood: + depressed mood Thought Process: goal directed thought process Thought Content: reality based without delusions Suicidal Thoughts: denies suicidal thoughts (but unable to safety plan outside of hospital) Homicidal Thoughts: denies homicidal thoughts Hallucinations: no auditory hallucinations and no visual hallucinations Cognition: attention grossly intact and language grossly intact Estimated Intelligence: consistent with education level Insight: + fair insight Judgement: + fair judgement Vital Signs (Past 24 Hours) Last Vital Signs Temp 37 C 04/01/21 06:38 Pulse 82 04/01/21 06:38 Resp 16 04/01/21 06:38 BP 108/74 04/01/21 06:38 Pulse Ox 99 03/30/21 21:19 Results & Data ([facility]) Laboratory Results Laboratory Results - last 24 hr 03/31/21 04/01/21 04/01/21 17:28 07:51 07:51 POC Glucose 90 Estimat Average Glucose 131 Hemoglobin A1c 6.2 H Triglycerides 122 Cholesterol 126 LDL Cholesterol, Calc 60 VLDL Cholesterol, Calc 24 HDL Cholesterol 42 Cholesterol/HDL Ratio 3 Amitriptyline Amitriptyline&Nortrip Nortriptyline Metabol 04/01/21 07:51 POC Glucose Estimat Average Glucose Hemoglobin A1c Triglycerides Cholesterol LDL Cholesterol, Calc VLDL Cholesterol, Calc HDL Cholesterol Cholesterol/HDL Ratio Amitriptyline Pending Amitriptyline&Nortrip Pending Nortriptyline Metabol Pending Diagnostic Findings EKG nl QTc, sinus tachy 03/31/21. Current Inpatient Medications Current Inpatient Medications: Current Inpatient Medications Acetaminophen (Acetaminophen 325 Mg Tab) 650 mg PO Q4H PRN PRN Reason: Headache or Minor Fever Stop: 04/29/21 21:26 Al Hydrox/Mg Hydrox/Simethicone (Aluminum/Magnesium Susp 30 Ml Udc) 30 ml PO Q4H PRN PRN Reason: GI Upset Stop: 04/29/21 21:26 Amitriptyline HCl (Amitriptyline Hcl 100 Mg Tab) 100 mg PO HS [facility] Stop: 04/29/21 21:59 Last Admin: 03/31/21 20:46 Dose: 100 mg Documented by: Bismuth Subsalicylate (Bismuth Subsalicylate Liqd 236 Ml) 15 ml PO PRN PRN PRN Reason: Loose Stool Stop: 04/29/21 21:26 Clonazepam (Clonazepam 1 Mg Tab) 1 mg PO HS [facility] Stop: 04/29/21 21:59 Last Admin: 03/31/21 20:49 Dose: 1 mg Documented by: Clonazepam (Clonazepam 0.5 Mg Tab) 0.5 mg PO QAM [facility] Stop: 04/30/21 12:29 Last Admin: 04/01/21 09:50 Dose: 0.5 mg Documented by: Hydroxyzine HCl (Hydroxyzine Hcl 25 Mg Tab) 50 mg PO HSZ PRN PRN Reason: Insomnia Stop: 04/29/21 21:26 Hydroxyzine HCl (Hydroxyzine Hcl 25 Mg Tab) 25 mg PO Q4H PRN PRN Reason: Anxiety Stop: 04/29/21 21:26 Lisdexamfetamine Dimesylate (Lisdexamfetamine Dimesylate) 1 ea PO Q24H [facility] Stop: 04/30/21 07:59 Last Admin: 04/01/21 09:49 Dose: 1 ea Documented by: [place] Carbonate ([place] Carbonate Slow Rel 300 Mg Tab) 300 mg PO BID [facility] Stop: 04/30/21 20:59 Last Admin: 04/01/21 09:50 Dose: 300 mg Documented by: Magnesium Hydroxide (Magnesium Hydroxide Susp 30 Ml Udc) 30 ml PO DAILY PRN PRN Reason: Constipation Stop: 04/29/21 21:26 Melatonin (Melatonin 3 Mg Tab) 9 mg PO HS [facility] Stop: 04/29/21 21:59 Last Admin: 03/31/21 20:47 Dose: 9 mg Documented by: Metformin HCl (Metformin Hcl 500 Mg Tab) 1,000 mg PO BID17 [facility] Stop: 04/29/21 23:14 Last Admin: 04/01/21 09:50 Dose: 1,000 mg Documented by: Ropinirole HCl (Ropinirole Hcl 0.25 Mg Tablet) 0.5 mg PO HS [facility] Stop: 04/29/21 21:59 Last Admin: 03/31/21 20:47 Dose: 0.5 mg Documented by: Rosuvastatin Calcium (Rosuvastatin Calcium 5 Mg Tab) 5 mg PO HS [facility] Stop: 04/29/21 21:59 Last Admin: 03/31/21 20:48 Dose: 5 mg Documented by: Sodium Chloride (Sodium Chloride 0.65% Na Soln 45 Ml ([place])) 1 - 2 sprays NA PRN PRN PRN Reason: Nasal Dryness/Congestion Stop: 04/29/21 21:26 Mental Health & Subst Abuse Tx Therapist Name of Therapist: [facility] Solomon Jett Childcare Director Name of Childcare Director: None Post Discharge Appointments Primary Care Physician Name Of Family Doctor: Karla Arce
[2021-04-01] MEDS: hydrOXYzine HCl 25 MG TAB PO PRN (18:43)
--- NOTE | 2021-04-01 20:28 | Electrocardiogram Report ---
Test Reason : Blood Pressure : / mmHG Vent. Rate : 101 BPM Atrial Rate : 101 BPM P-R Int : 142 ms QRS Dur : 076 ms QT Int : 342 ms P-R-T Axes : 057 068 036 degrees QTc Int : 443 ms Sinus tachycardia Otherwise normal ECG No previous ECGs available Confirmed by David Mercado ([id number]) on 04/01/2021 8:28:25 PM Referred By: Mundo Lehman Confirmed By:David Mercado
[2021-04-01] MEDS: clonazePAM 1 MG TAB PO SCH (21:11)
[2021-04-01] MEDS: MELATONIN 3 MG TAB PO SCH (21:12)
[2021-04-01] MEDS: AMITRIPTYLINE HCL 100 MG TAB PO SCH (21:12)
[2021-04-01] MEDS: rOPINIRole HCL 0.25 MG TABLET PO SCH (21:12)
[2021-04-01] MEDS: ROSUVASTATIN CALCIUM 5 MG TAB PO SCH (21:12)
[2021-04-02] MEDS: hydrOXYzine HCl 25 MG TAB PO PRN ×3 (00:21→10:30)
[2021-04-02] MEDS: metFORMIN HCL 500 MG TAB PO SCH ×2 (08:44→17:29)
[2021-04-02] MEDS: LITHIUM CARBONATE SLOW REL 300 MG TAB PO SCH ×2 (09:06→20:26)
[2021-04-02] MEDS: LISDEXAMFETAMINE DIMESYLATE PO SCH (09:06)
[2021-04-02] MEDS: clonazePAM 0.5 MG TAB PO SCH (09:06)
--- NOTE | 2021-04-02 14:00 | Psychiatric Progress Note ---
Date of Service April 02, 2021 Impression / Recommendations Impression 45 yo female with depression with irritability, consistent with bipolar II disorder. 04/02/21: ongoing depression, poor sleep (1) Depression with suicidal ideation: 04/02/21: TCA level still pending but clearly although lithium will likely address depression, less likely to address anxiety. Notes some tremor so will hold pm titration in favor of a trial of Remeron 15 mg po qhs. Patient agrees as likely to help sleep and appetite, will administer with lower dose of Elavil tonight due to risks of combined sedation. Is using Vistaril 25 mg prn effectively. 04/01/21: reviewed labs, TCA level pending. Continue increased dose of lithium. Considering antidepressant depending on TCA level pending discussion with outpatient psychiatrist. 03/31/21: The patient was [facility] to [facility] ([facility] unit) on q15 min checks (behavioral with suicide precautions) for safety. The patient will participate in group, recreational, and milieu therapies and will be offered additional individual and family sessions as clinically appropriate. Risks/benefits/alternatives reviewed re: her current medications including toxicity in OD, will check EKG due to polypharm. Reviewed that lithium dose is subtherapeutic and would titrated with consideration of antidepressant in place of or in addition to Elavil. Continued scheduled dose of Klonopin for now but is a depressant. Inventory Assets Strengths: employed, wants better relationship with children Needs: improve self esteem and coping. Risk Factors Assessment Male: No : No Do You Have Access To A Gun?: No Mental Health Diagnoses: Yes Substance Use Disorders: No Previous Attempt: No Previous Psychiatric Hospitalization: No Protective Factors Assessment : No Responsible for Young Children: Yes Employed: Yes ([employer]) Supportive Family: Yes Interval History Identifying Information PHILIP JOHNSON is a 45-year-old F who currently lives in [place], has a history of bipolar depression, and was admitted on 03/30/21 21:20 on a 201 commitment for depression with suicidal ideation. Chief Complaint "[]". Review of Systems Sleep Information Total Hours of Sleep: 5.5 Sleep Comments: pt given2 doses of vistaril per sleep. pt on q-15 minute checks Meal Information Percent Meal Consumed - Breakfast: 20 Percent Meal Consumed - Lunch: 100 Percent Meal Consumed - Dinner: 25 Subjective Subjective Patient was seen & assessed and interval progress reviewed with nursing and social work. She reports having a difficult day yesterday in that thought a lot about her ex and past trauma. Still not eating well here. Sleep was poor overnight despite prns and her standing medications. States she has been crying alot. Family meeting with sister went well. Reviewed labs. Physical Exam Psychiatric Orientation: alert and oriented x 3 Apperance: appropriately dressed and appropriately groomed Eye Contact: good eye contact Motor Behavior: no abnormal motor movements Speech: normal rate/rhythm/volume of speech Affect: + depressed affect Mood: + depressed mood Thought Process: goal directed thought process Thought Content: reality based without delusions Suicidal Thoughts: denies suicidal thoughts (but unable to safety plan outside of hospital) Homicidal Thoughts: denies homicidal thoughts Hallucinations: no auditory hallucinations and no visual hallucinations Cognition: attention grossly intact and language grossly intact Estimated Intelligence: consistent with education level Insight: + fair insight Judgement: + fair judgement Vital Signs (Past 24 Hours) Last Vital Signs Temp 37 C 04/02/21 06:37 Pulse 89 04/02/21 06:38 Resp 16 04/02/21 06:37 BP 118/76 04/02/21 06:38 Pulse Ox 99 03/30/21 21:19 Results & Data (U) Current Inpatient Medications Current Inpatient Medications: Current Inpatient Medications Acetaminophen (Acetaminophen 325 Mg Tab) 650 mg PO Q4H PRN PRN Reason: Headache or Minor Fever Stop: 04/29/21 21:26 Al Hydrox/Mg Hydrox/Simethicone (Aluminum/Magnesium Susp 30 Ml Udc) 30 ml PO Q4H PRN PRN Reason: GI Upset Stop: 04/29/21 21:26 Amitriptyline HCl (Amitriptyline Hcl 50 Mg Tab) 50 mg PO HS [facility] Stop: 05/02/21 21:59 Bismuth Subsalicylate (Bismuth Subsalicylate Liqd 236 Ml) 15 ml PO PRN PRN PRN Reason: Loose Stool Stop: 04/29/21 21:26 Clonazepam (Clonazepam 1 Mg Tab) 1 mg PO HS [facility] Stop: 04/29/21 21:59 Last Admin: 04/01/21 21:11 Dose: 1 mg Documented by: Clonazepam (Clonazepam 0.5 Mg Tab) 0.5 mg PO QAM [facility] Stop: 04/30/21 12:29 Last Admin: 04/02/21 09:06 Dose: 0.5 mg Documented by: Hydroxyzine HCl (Hydroxyzine Hcl 25 Mg Tab) 50 mg PO HSZ PRN PRN Reason: Insomnia Stop: 04/29/21 21:26 Last Admin: 04/02/21 02:09 Dose: 50 mg Documented by: Hydroxyzine HCl (Hydroxyzine Hcl 25 Mg Tab) 25 mg PO Q4H PRN PRN Reason: Anxiety Stop: 04/29/21 21:26 Last Admin: 04/02/21 10:30 Dose: 25 mg Documented by: Lisdexamfetamine Dimesylate (Lisdexamfetamine Dimesylate) 1 ea PO Q24H [facility] Stop: 04/30/21 07:59 Last Admin: 04/02/21 09:06 Dose: 1 ea Documented by: [place] Carbonate ([place] Carbonate Slow Rel 300 Mg Tab) 300 mg PO BID [facility] Stop: 04/30/21 20:59 Last Admin: 04/02/21 09:06 Dose: 300 mg Documented by: Magnesium Hydroxide (Magnesium Hydroxide Susp 30 Ml Udc) 30 ml PO DAILY PRN PRN Reason: Constipation Stop: 04/29/21 21:26 Melatonin (Melatonin 3 Mg Tab) 9 mg PO [facility] Stop: 04/29/21 21:59 Last Admin: 04/01/21 21:12 Dose: 9 mg Documented by: Metformin HCl (Metformin Hcl 500 Mg Tab) 1,000 mg PO BID17 [facility] Stop: 04/29/21 23:14 Last Admin: 04/02/21 08:44 Dose: 1,000 mg Documented by: Mirtazapine (Mirtazapine Tab 15 Mg Tab) 15 mg PO HS [facility] Stop: 05/02/21 21:59 Ropinirole HCl (Ropinirole Hcl 0.25 Mg Tablet) 0.5 mg PO HS [facility] Stop: 04/29/21 21:59 Last Admin: 04/01/21 21:12 Dose: 0.5 mg Documented by: Rosuvastatin Calcium (Rosuvastatin Calcium 5 Mg Tab) 5 mg PO HS [facility] Stop: 04/29/21 21:59 Last Admin: 04/01/21 21:12 Dose: 5 mg Documented by: Sodium Chloride (Sodium Chloride 0.65% Na Soln 45 Ml ([place])) 1 - 2 sprays NA PRN PRN PRN Reason: Nasal Dryness/Congestion Stop: 04/29/21 21:26 Mental Health & Subst Abuse Tx Therapist Name of Therapist: [facility] Solomon Jett Machine Riveter Name of Machine Riveter: None Post Discharge Appointments Primary Care Physician Name Of Family Doctor: Karla Arce
[2021-04-02] MEDS: MELATONIN 3 MG TAB PO SCH (21:35)
[2021-04-02] MEDS: ROSUVASTATIN CALCIUM 5 MG TAB PO SCH (21:35)
[2021-04-02] MEDS: AMITRIPTYLINE HCL 50 MG TAB PO SCH (21:35)
[2021-04-02] MEDS: rOPINIRole HCL 0.25 MG TABLET PO SCH (21:35)
[2021-04-02] MEDS: MIRTAZAPINE TAB 15 MG TAB PO SCH (21:35)
[2021-04-02] MEDS: clonazePAM 1 MG TAB PO SCH (21:36)
[2021-04-03] MEDS: LISDEXAMFETAMINE DIMESYLATE PO SCH (08:34)
[2021-04-03] MEDS: LITHIUM CARBONATE SLOW REL 300 MG TAB PO SCH ×2 (08:35→21:19)
[2021-04-03] MEDS: metFORMIN HCL 500 MG TAB PO SCH ×2 (08:35→17:20)
[2021-04-03] MEDS: clonazePAM 0.5 MG TAB PO SCH (08:35)
[2021-04-03 08:43] LABS: Amphetamine Urine, Confirm 10700 ng/mL (<250); Methamphetamine, Ur Confirm NEGATIVE ng/mL (<250)
--- NOTE | 2021-04-03 10:28 | Psychiatric Progress Note ---
Date of Service April 03, 2021 Impression / Recommendations Impression 45 yo female with depression with irritability, consistent with bipolar II disorder. 04/03/21: ongoing depression and anxiety (1) Depression with suicidal ideation: 04/03/21: continue Remeron trial. LM for Dr. Lehman's office. 04/02/21: TCA level still pending but clearly although lithium will likely address depression, less likely to address anxiety. Notes some tremor so will hold pm titration in favor of a trial of Remeron 15 mg po qhs. Patient agrees as likely to help sleep and appetite, will administer with lower dose of Elavil tonight due to risks of combined sedation. Is using Vistaril 25 mg prn effectively. 04/01/21: reviewed labs, TCA level pending. Continue increased dose of lithium. Considering antidepressant depending on TCA level pending discussion with outpatient psychiatrist. 03/31/21: The patient was admitted to the [facility] ([facility] unit) on q15 min checks (behavioral with suicide precautions) for safety. The patient will participate in group, recreational, and milieu therapies and will be offered additional individual and family sessions as clinically appropriate. Risks/benefits/alternatives reviewed re: her current medications including toxicity in OD, will check EKG due to polypharm. Reviewed that lithium dose is subtherapeutic and would titrated with consideration of antidepressant in place of or in addition to Elavil. Continued scheduled dose of Klonopin for now but is a depressant. Inventory Assets Strengths: employed, wants better relationship with children Needs: improve self esteem and coping. Risk Factors Assessment Male: No : No Do You Have Access To A Gun?: No Mental Health Diagnoses: Yes Substance Use Disorders: No Previous Attempt: No Previous Psychiatric Hospitalization: No Protective Factors Assessment : No Responsible for Young Children: Yes Employed: Yes ([employer]) Supportive Family: Yes Interval History Identifying Information PHILIP JOHNSON is a 45-year-old F who currently lives in [place], has a history of bipolar depression, and was admitted on 03/30/21 21:20 on a 201 commitment for depression with suicidal ideation. Chief Complaint "I worry that I won't have anyone to talk to when I leave". Review of Systems Sleep Information Total Hours of Sleep: 6.75 Sleep Comments: pt on q-15 minute checks Meal Information Percent Meal Consumed - Breakfast: 100 Percent Meal Consumed - Lunch: 100 Percent Meal Consumed - Dinner: 75 Subjective Subjective Patient was seen & assessed and interval progress reviewed with treatment team. Remains depressed and anxious but appearing more comfortable on unit. Sleep improved last pm and ate breakfast. Stilling relying alot on staff for emotional support. Physical Exam Psychiatric Orientation: alert and oriented x 3 Apperance: appropriately dressed and appropriately groomed Eye Contact: good eye contact Motor Behavior: no abnormal motor movements Speech: normal rate/rhythm/volume of speech Affect: + depressed affect Mood: + depressed mood Thought Process: goal directed thought process Thought Content: reality based without delusions Suicidal Thoughts: denies suicidal thoughts (but unable to safety plan outside of hospital) Homicidal Thoughts: denies homicidal thoughts Hallucinations: no auditory hallucinations and no visual hallucinations Cognition: attention grossly intact and language grossly intact Estimated Intelligence: consistent with education level Insight: + fair insight Judgement: + fair judgement Vital Signs (Past 24 Hours) Last Vital Signs Temp 37 C 04/03/21 06:38 Pulse 85 04/03/21 06:39 Resp 16 04/03/21 06:38 BP 108/70 04/03/21 06:39 Pulse Ox 99 03/30/21 21:19 Results & Data ([facility]) Laboratory Results Laboratory Results - last 24 hr 03/30/21 17:14 U Amphetamines Confirm 20794 H U Methamphetamin Confrm NEGATIVE Drug Screen Comment SEE NOTE Current Inpatient Medications Current Inpatient Medications: Current Inpatient Medications Acetaminophen (Acetaminophen 325 Mg Tab) 650 mg PO Q4H PRN PRN Reason: Headache or Minor Fever Stop: 04/29/21 21:26 Al Hydrox/Mg Hydrox/Simethicone (Aluminum/Magnesium Susp 30 Ml Udc) 30 ml PO Q4H PRN PRN Reason: GI Upset Stop: 04/29/21 21:26 Amitriptyline HCl (Amitriptyline Hcl 50 Mg Tab) 50 mg PO HS [facility] Stop: 05/02/21 21:59 Last Admin: 04/02/21 21:35 Dose: 50 mg Documented by: Bismuth Subsalicylate (Bismuth Subsalicylate Liqd 236 Ml) 15 ml PO PRN PRN PRN Reason: Loose Stool Stop: 04/29/21 21:26 Clonazepam (Clonazepam 1 Mg Tab) 1 mg PO HS [facility] Stop: 04/29/21 21:59 Last Admin: 04/02/21 21:36 Dose: 1 mg Documented by: Clonazepam (Clonazepam 0.5 Mg Tab) 0.5 mg PO QAM [facility] Stop: 04/30/21 12:29 Last Admin: 04/03/21 08:35 Dose: 0.5 mg Documented by: Hydroxyzine HCl (Hydroxyzine Hcl 25 Mg Tab) 50 mg PO HSZ PRN PRN Reason: Insomnia Stop: 04/29/21 21:26 Last Admin: 04/02/21 02:09 Dose: 50 mg Documented by: Hydroxyzine HCl (Hydroxyzine Hcl 25 Mg Tab) 25 mg PO Q4H PRN PRN Reason: Anxiety Stop: 04/29/21 21:26 Last Admin: 04/02/21 10:30 Dose: 25 mg Documented by: Lisdexamfetamine Dimesylate (Lisdexamfetamine Dimesylate) 1 ea PO Q24H [facility] Stop: 04/30/21 07:59 Last Admin: 04/03/21 08:34 Dose: 1 ea Documented by: [place] Carbonate ([place] Carbonate Slow Rel 300 Mg Tab) 300 mg PO BID [facility] Stop: 04/30/21 20:59 Last Admin: 04/03/21 08:35 Dose: 300 mg Documented by: Magnesium Hydroxide (Magnesium Hydroxide Susp 30 Ml Udc) 30 ml PO DAILY PRN PRN Reason: Constipation Stop: 04/29/21 21:26 Melatonin (Melatonin 3 Mg Tab) 9 mg PO HS [facility] Stop: 04/29/21 21:59 Last Admin: 04/02/21 21:35 Dose: 9 mg Documented by: Metformin HCl (Metformin Hcl 500 Mg Tab) 1,000 mg PO BID17 [facility] Stop: 04/29/21 23:14 Last Admin: 04/03/21 08:35 Dose: 1,000 mg Documented by: Mirtazapine (Mirtazapine Tab 15 Mg Tab) 15 mg PO [facility] Stop: 05/02/21 21:59 Last Admin: 04/02/21 21:35 Dose: 15 mg Documented by: Ropinirole HCl (Ropinirole Hcl 0.25 Mg Tablet) 0.5 mg PO HS [facility] Stop: 04/29/21 21:59 Last Admin: 04/02/21 21:35 Dose: 0.5 mg Documented by: Rosuvastatin Calcium (Rosuvastatin Calcium 5 Mg Tab) 5 mg PO HS [facility] Stop: 04/29/21 21:59 Last Admin: 04/02/21 21:35 Dose: 5 mg Documented by: Sodium Chloride (Sodium Chloride 0.65% Na Soln 45 Ml ([place])) 1 - 2 sprays NA PRN PRN PRN Reason: Nasal Dryness/Congestion Stop: 04/29/21 21:26 Mental Health & Subst Abuse Tx Psychiatrist Name of Psychiatrist: Goldie Lehman Psychiatrist's Date of Appointment with Psychiatrist: 05/12/21 Time of Appointment with Psychiatrist: 9:10a Psychiatric Appointment Comment: [address] , [address],[place], [place] Therapist Name of Therapist: [facility].- Solomon Jett Pre Fabricator Name of Pre Fabricator: None Post Discharge Appointments Primary Care Physician Name Of Family Doctor: Karla Arce
[2021-04-03] MEDS: ROSUVASTATIN CALCIUM 5 MG TAB PO SCH (21:19)
[2021-04-03] MEDS: MELATONIN 3 MG TAB PO SCH (21:19)
[2021-04-03] MEDS: AMITRIPTYLINE HCL 50 MG TAB PO SCH (21:19)
[2021-04-03] MEDS: MIRTAZAPINE TAB 15 MG TAB PO SCH (21:19)
[2021-04-03] MEDS: rOPINIRole HCL 0.25 MG TABLET PO SCH (21:19)
[2021-04-03] MEDS: clonazePAM 1 MG TAB PO SCH (21:19)
[2021-04-03] MEDS: ACETAMINOPHEN 325 MG TAB PO PRN (21:30)
[2021-04-04] MEDS: LISDEXAMFETAMINE DIMESYLATE PO SCH (08:53)
[2021-04-04] MEDS: clonazePAM 0.5 MG TAB PO SCH (09:36)
[2021-04-04] MEDS: LITHIUM CARBONATE SLOW REL 300 MG TAB PO SCH ×2 (09:37→21:28)
[2021-04-04] MEDS: metFORMIN HCL 500 MG TAB PO SCH ×2 (09:37→17:03)
--- NOTE | 2021-04-04 10:59 | Psychiatric Progress Note ---
Date of Service April 04, 2021 Impression / Recommendations Impression 45 yo female with depression with irritability, consistent with bipolar II disorder. 04/03/21: ongoing depression with significant thought distortions and breakthrough anxiety. (1) Depression with suicidal ideation: 04/04/21: shift am Klonopin to 0.5 mg 7 am. Encouraged coping skills/cognitive reframing but is aware that Vistaril is available. She plans to contact HR and her therapist today. 04/03/21: continue Remeron trial. LM for Dr. Lehman's office. 04/02/21: TCA level still pending but clearly although lithium will likely address depression, less likely to address anxiety. Notes some tremor so will hold pm titration in favor of a trial of Remeron 15 mg po qhs. Patient agrees as likely to help sleep and appetite, will administer with lower dose of Elavil tonight due to risks of combined sedation. Is using Vistaril 25 mg prn effectively. 04/01/21: reviewed labs, TCA level pending. Continue increased dose of lithium. Considering antidepressant depending on TCA level pending discussion with outpatient psychiatrist. 03/31/21: The patient was admitted to the [facility] ([facility] mental health unit) on q15 min checks (behavioral with suicide precautions) for safety. The patient will participate in group, recreational, and milieu therapies and will be offered additional individual and family sessions as clinically appropriate. Risks/benefits/alternatives reviewed re: her current medications including toxicity in OD, will check EKG due to polypharm. Reviewed that lithium dose is subtherapeutic and would titrated with consideration of antidepressant in place of or in addition to Elavil. Continued scheduled dose of Klonopin for now but is a depressant. Inventory Assets Strengths: employed, wants better relationship with children Needs: improve self esteem and coping. Risk Factors Assessment Male: No : No Do You Have Access To A Gun?: No Mental Health Diagnoses: Yes Substance Use Disorders: No Previous Attempt: No Previous Psychiatric Hospitalization: No Protective Factors Assessment : No Responsible for Young Children: Yes Employed: Yes ([employer]) Supportive Family: Yes Interval History Identifying Information PHILIP JOHNSON is a 45-year-old F who currently lives in [place], has a history of bipolar depression, and was admitted on 03/30/21 21:20 on a 201 commitment for depression with suicidal ideation. Chief Complaint "I feel down again today and worry this is regression". Review of Systems Sleep Information Total Hours of Sleep: 6.5 Sleep Comments: pt on q-15 minute checks Meal Information Percent Meal Consumed - Breakfast: 90 Percent Meal Consumed - Lunch: 0 Percent Meal Consumed - Dinner: 80 Subjective Subjective Patient was seen & assessed and interval progress reviewed with nursing and social work. Patient still not eating much yesterday but did better with food brought from home. Doesn't feel her sleep was as restful. Overwhelmed with thoughts about logistics of return to work and ability to manage self in outpatient as needs much reassurance here around cognitive distortions. Reviewed that she is not tachycardic this am even though feels jittery. Discussed in context of klonopin breakthrough as taking am meds much later here and reviewed that antidepressants take time to work. Physical Exam Psychiatric Orientation: alert and oriented x 3 Apperance: appropriately dressed and appropriately groomed Eye Contact: good eye contact Motor Behavior: no abnormal motor movements Speech: normal rate/rhythm/volume of speech Affect: + depressed affect and + tearful affect Mood: + depressed mood Thought Process: goal directed thought process Thought Content: reality based without delusions Suicidal Thoughts: denies suicidal thoughts (but unable to safety plan outside of hospital) Homicidal Thoughts: denies homicidal thoughts Hallucinations: no auditory hallucinations and no visual hallucinations Cognition: attention grossly intact and language grossly intact Estimated Intelligence: consistent with education level Insight: + fair insight Judgement: + fair judgement Vital Signs (Past 24 Hours) Last Vital Signs Temp 36.6 C 04/04/21 06:35 Pulse 82 04/04/21 06:37 Resp 16 04/04/21 06:35 BP 92/60 L 04/04/21 06:37 Pulse Ox 99 04/03/21 12:27 Results & Data ([facility]) Current Inpatient Medications Current Inpatient Medications: Current Inpatient Medications Acetaminophen (Acetaminophen 325 Mg Tab) 650 mg PO Q4H PRN PRN Reason: Headache or Minor Fever Stop: 04/29/21 21:26 Last Admin: 04/03/21 21:30 Dose: 650 mg Documented by: Al Hydrox/Mg Hydrox/Simethicone (Aluminum/Magnesium Susp 30 Ml Udc) 30 ml PO Q4H PRN PRN Reason: GI Upset Stop: 04/29/21 21:26 Amitriptyline HCl (Amitriptyline Hcl 50 Mg Tab) 50 mg PO HS [facility] Stop: 05/02/21 21:59 Last Admin: 04/03/21 21:19 Dose: 50 mg Documented by: Bismuth Subsalicylate (Bismuth Subsalicylate Liqd 236 Ml) 15 ml PO PRN PRN PRN Reason: Loose Stool Stop: 04/29/21 21:26 Clonazepam (Clonazepam 1 Mg Tab) 1 mg PO HS [facility] Stop: 04/29/21 21:59 Last Admin: 04/03/21 21:19 Dose: 1 mg Documented by: Clonazepam (Clonazepam 0.5 Mg Tab) 0.5 mg PO QAM [facility] Stop: 04/30/21 12:29 Last Admin: 04/04/21 09:36 Dose: 0.5 mg Documented by: Hydroxyzine HCl (Hydroxyzine Hcl 25 Mg Tab) 50 mg PO HSZ PRN PRN Reason: Insomnia Stop: 04/29/21 21:26 Last Admin: 04/02/21 02:09 Dose: 50 mg Documented by: Hydroxyzine HCl (Hydroxyzine Hcl 25 Mg Tab) 25 mg PO Q4H PRN PRN Reason: Anxiety Stop: 04/29/21 21:26 Last Admin: 04/02/21 10:30 Dose: 25 mg Documented by: Lisdexamfetamine Dimesylate (Lisdexamfetamine Dimesylate) 1 ea PO Q24H [facility] Stop: 04/30/21 07:59 Last Admin: 04/04/21 08:53 Dose: 1 ea Documented by: [place] Carbonate ([place] Carbonate Slow Rel 300 Mg Tab) 300 mg PO BID [facility] Stop: 04/30/21 20:59 Last Admin: 04/04/21 09:37 Dose: 300 mg Documented by: Magnesium Hydroxide (Magnesium Hydroxide Susp 30 Ml Udc) 30 ml PO DAILY PRN PRN Reason: Constipation Stop: 04/29/21 21:26 Melatonin (Melatonin 3 Mg Tab) 9 mg PO HS [facility] Stop: 04/29/21 21:59 Last Admin: 04/03/21 21:19 Dose: 9 mg Documented by: Metformin HCl (Metformin Hcl 500 Mg Tab) 1,000 mg PO BID17 [facility] Stop: 04/29/21 23:14 Last Admin: 04/04/21 09:37 Dose: 1,000 mg Documented by: Mirtazapine (Mirtazapine Tab 15 Mg Tab) 15 mg PO HS [facility] Stop: 05/02/21 21:59 Last Admin: 04/03/21 21:19 Dose: 15 mg Documented by: Ropinirole HCl (Ropinirole Hcl 0.25 Mg Tablet) 0.5 mg PO HS [facility] Stop: 04/29/21 21:59 Last Admin: 04/03/21 21:19 Dose: 0.5 mg Documented by: Rosuvastatin Calcium (Rosuvastatin Calcium 5 Mg Tab) 5 mg PO HS [facility] Stop: 04/29/21 21:59 Last Admin: 04/03/21 21:19 Dose: 5 mg Documented by: Sodium Chloride (Sodium Chloride 0.65% Na Soln 45 Ml ([place])) 1 - 2 sprays NA PRN PRN PRN Reason: Nasal Dryness/Congestion Stop: 04/29/21 21:26 Mental Health & Subst Abuse Tx Psychiatrist Name of Psychiatrist: Goldie Lehman Psychiatrist's Date of Appointment with Psychiatrist: 05/12/21 Time of Appointment with Psychiatrist: 9:10a Psychiatric Appointment Comment: [address], [address],[place], [place] Therapist [facility] of [facility]rapist: [facility]- Solomon Jett Therapist's Therapy Appointment Comment: [address], [address], [place] Specialty Therapist Name of Specialty Therapist: None Post Discharge Appointments Primary Care Physician Name Of Family Doctor: [facility]- Dr. Ren [facility] Date of Appointment with PCP: 04/18/21 Time of Appointment with PCP: 1:50p Provider Appointment Comment: [address], [place]
[2021-04-04] MEDS: MELATONIN 3 MG TAB PO SCH (21:27)
[2021-04-04] MEDS: MIRTAZAPINE TAB 15 MG TAB PO SCH (21:28)
[2021-04-04] MEDS: clonazePAM 1 MG TAB PO SCH (21:28)
[2021-04-04] MEDS: rOPINIRole HCL 0.25 MG TABLET PO SCH (21:28)
[2021-04-04] MEDS: ROSUVASTATIN CALCIUM 5 MG TAB PO SCH (21:28)
[2021-04-04] MEDS: AMITRIPTYLINE HCL 50 MG TAB PO SCH (21:28)
[2021-04-05] MEDS: clonazePAM 0.5 MG TAB PO SCH (06:35)
[2021-04-05] MEDS: LISDEXAMFETAMINE DIMESYLATE PO SCH (08:51)
[2021-04-05] MEDS: metFORMIN HCL 500 MG TAB PO SCH ×2 (09:03→17:50)
[2021-04-05] MEDS: LITHIUM CARBONATE SLOW REL 300 MG TAB PO SCH ×2 (09:03→20:57)
--- NOTE | 2021-04-05 12:35 | Psychiatric Progress Note ---
Date of Service April 05, 2021 Impression / Recommendations Impression 45 yo female with depression with irritability, consistent with bipolar II disorder. 04/05/21: improving (1) Depression with suicidal ideation: 04/05/21: lithium level near therapeutic, will add an additional 150 mg tonight. patient agrees. 04/04/21: shift am Klonopin to 0.5 mg 7 am. Encouraged coping skills/cognitive reframing but is aware that Vistaril is available. She plans to contact HR and her therapist today. 04/03/21: continue Remeron trial. LM for Dr. Lehman's office. 04/02/21: TCA level still pending but clearly although lithium will likely address depression, less likely to address anxiety. Notes some tremor so will hold pm titration in favor of a trial of Remeron 15 mg po qhs. Patient agrees as likely to help sleep and appetite, will administer with lower dose of Elavil tonight due to risks of combined sedation. Is using Vistaril 25 mg prn effectively. 04/01/21: reviewed labs, TCA level pending. Continue increased dose of lithium. Considering antidepressant depending on TCA level pending discussion with outpatient psychiatrist. 03/31/21: The patient was admitted to the [facility] ([facility] inpatient mental health unit) on q15 min checks (behavioral with suicide precautions) for safety. The patient will participate in group, recreational, and milieu therapies and will be offered additional individual and family sessions as clinically appropriate. Risks/benefits/alternatives reviewed re: her current medications including toxicity in OD, will check EKG due to polypharm. Reviewed that lithium dose is subtherapeutic and would titrated with consideration of antidepressant in place of or in addition to Elavil. Continued scheduled dose of Klonopin for now but is a depressant. Inventory Assets Strengths: employed, wants better relationship with children Needs: improve self esteem and coping. Risk Factors Assessment Male: No : No Do You Have Access To A Gun?: No Mental Health Diagnoses: Yes Substance Use Disorders: No Previous Attempt: No Previous Psychiatric Hospitalization: No Protective Factors Assessment : No Responsible for Young Children: Yes Employed: Yes ([employer]) Supportive Family: Yes Interval History Identifying Information PHILIP JOHNSON is a 45-year-old F who currently lives in [place], has a history of bipolar depression, and was admitted on 03/30/21 21:20 on a 201 commitment for depression with suicidal ideation. Chief Complaint "I'm doing a bit better but I worry about not having 1-on-1 at home.". Review of Systems Sleep Information Total Hours of Sleep: 6 Sleep Comments: pt on q-15 minute checks Meal Information Percent Meal Consumed - Breakfast: 100 Percent Meal Consumed - Lunch: 30 Percent Meal Consumed - Dinner: 50 Subjective Subjective Patient was seen & assessed and interval progress reviewed with treatment team. Continuing to work on affirmations and cognitive distortions. Feeling more proactive. Tolerating meds. Still not eating the best but doesn't eat 3 meals a day at home either. Physical Exam Psychiatric Orientation: alert and oriented x 3 Apperance: appropriately dressed and appropriately groomed Eye Contact: good eye contact Motor Behavior: no abnormal motor movements Speech: normal rate/rhythm/volume of speech Affect: + depressed affect Mood: + depressed mood Thought Process: goal directed thought process Thought Content: reality based without delusions Suicidal Thoughts: denies suicidal thoughts Homicidal Thoughts: denies homicidal thoughts Hallucinations: no auditory hallucinations and no visual hallucinations Cognition: attention grossly intact and language grossly intact Estimated Intelligence: consistent with education level Insight: + fair insight Judgement: + fair judgement Vital Signs (Past 24 Hours) Last Vital Signs Temp 37.1 C 04/05/21 06:35 Pulse 94 H 04/05/21 06:36 Resp 16 04/05/21 06:35 BP 108/76 04/05/21 06:36 Pulse Ox 99 04/03/21 12:27 Results & Data ([facility] [[email or web address] Laboratory Results Laboratory Results - last 24 hr 04/05/21 07:52 [place] 0.5 L Current Inpatient Medications Current Inpatient Medications: Current Inpatient Medications Acetaminophen (Acetaminophen 325 Mg Tab) 650 mg PO Q4H PRN PRN Reason: Headache or Minor Fever Stop: 04/29/21 21:26 Last Admin: 04/03/21 21:30 Dose: 650 mg Documented by: Al Hydrox/Mg Hydrox/Simethicone (Aluminum/Magnesium Susp 30 Ml Udc) 30 ml PO Q4H PRN PRN Reason: GI Upset Stop: 04/29/21 21:26 Amitriptyline HCl (Amitriptyline Hcl 50 Mg Tab) 50 mg PO HS [facility] Stop: 05/02/21 21:59 Last Admin: 04/04/21 21:28 Dose: 50 mg Documented by: Bismuth Subsalicylate (Bismuth Subsalicylate Liqd 236 Ml) 15 ml PO PRN PRN PRN Reason: Loose Stool Stop: 04/29/21 21:26 Clonazepam (Clonazepam 1 Mg Tab) 1 mg PO [facility] Stop: 04/29/21 21:59 Last Admin: 04/04/21 21:28 Dose: 1 mg Documented by: Clonazepam (Clonazepam 0.5 Mg Tab) 0.5 mg PO TODAY@0700 PENDING SALE TO [facility] Stop: 05/05/21 06:59 Last Admin: 04/05/21 06:35 Dose: 0.5 mg Documented by: Hydroxyzine HCl (Hydroxyzine Hcl 25 Mg Tab) 50 mg PO HSZ PRN PRN Reason: Insomnia Stop: 04/29/21 21:26 Last Admin: 04/02/21 02:09 Dose: 50 mg Documented by: Hydroxyzine HCl (Hydroxyzine Hcl 25 Mg Tab) 25 mg PO Q4H PRN PRN Reason: Anxiety Stop: 04/29/21 21:26 Last Admin: 04/02/21 10:30 Dose: 25 mg Documented by: Lisdexamfetamine Dimesylate (Lisdexamfetamine Dimesylate) 1 ea PO Q24H PEND[facility] S[facility] TO [facility] Stop: 04/30/21 07:59 Last Admin: 04/05/21 08:51 Dose: 1 ea Documented by: [place] Carbonate ([place] Carbonate Slow Rel 300 Mg Tab) 300 mg PO BID [facility] S[facility] Stop: 04/30/21 20:59 Last Admin: 04/05/21 09:03 Dose: 300 mg Documented by: Magnesium Hydroxide (Magnesium Hydroxide Susp 30 Ml Udc) 30 ml PO DAILY PRN PRN Reason: Constipation Stop: 04/29/21 21:26 Melatonin (Melatonin 3 Mg Tab) 9 mg PO [facility] Stop: 04/29/21 21:59 Last Admin: 04/04/21 21:27 Dose: 9 mg Documented by: Metformin HCl (Metformin Hcl 500 Mg Tab) 1,000 mg PO BID17 PEND[facility] S[facility] TO [facility] Stop: 04/29/21 23:14 Last Admin: 04/05/21 09:03 Dose: 1,000 mg Documented by: Mirtazapine (Mirtazapine Tab 15 Mg Tab) 15 mg PO [facility] Stop: 05/02/21 21:59 Last Admin: 04/04/21 21:28 Dose: 15 mg Documented by: Ropinirole HCl (Ropinirole Hcl 0.25 Mg Tablet) 0.5 mg PO HS [facility] Stop: 04/29/21 21:59 Last Admin: 04/04/21 21:28 Dose: 0.5 mg Documented by: Rosuvastatin Calcium (Rosuvastatin Calcium 5 Mg Tab) 5 mg PO HS [facility] Stop: 04/29/21 21:59 Last Admin: 04/04/21 21:28 Dose: 5 mg Documented by: Sodium Chloride (Sodium Chloride 0.65% Na Soln 45 Ml ([place])) 1 - 2 sprays NA PRN PRN PRN Reason: Nasal Dryness/Congestion Stop: 04/29/21 21:26 Mental Health & Subst Abuse Tx Psychiatrist Name of Psychiatrist: Goldie [facility]- Dr. Lehman Psychiatrist's Date of Appointment with Psychiatrist: 05/12/21 Time of Appointment with Psychiatrist: 9:10a Psychiatric Appointment Comment: [id number], [address],[place], [place] Therapist Name of Therapist: [facility] Solomon Jett Therapist's Therapy Appointment Comment: [address], [address], [place] Payable Manager Name of Payable Manager: None Post Discharge Appointments Primary Care Physician Name Of Family Doctor: [facility]- Dr. Ren [facility] Date of Appointment with PCP: 04/18/21 Time of Appointment with PCP: 1:50p Provider Appointment Comment: [email or web address], [place]
[2021-04-05] MEDS: AMITRIPTYLINE HCL 50 MG TAB PO SCH (20:57)
[2021-04-05] MEDS: clonazePAM 1 MG TAB PO SCH (20:59)
[2021-04-05] MEDS: MELATONIN 3 MG TAB PO SCH (20:59)
[2021-04-05] MEDS: rOPINIRole HCL 0.25 MG TABLET PO SCH (21:00)
[2021-04-05] MEDS: ROSUVASTATIN CALCIUM 5 MG TAB PO SCH (21:01)
[2021-04-05] MEDS: MIRTAZAPINE TAB 15 MG TAB PO SCH (21:01)
[2021-04-05] MEDS: ACETAMINOPHEN 325 MG TAB PO PRN (21:52)
[2021-04-05] MEDS ORDERED: LITHIUM CARBONATE 300 MG TAB PO SCH (22:00)
[2021-04-06] MEDS: clonazePAM 0.5 MG TAB PO SCH (06:37)
[2021-04-06] MEDS: metFORMIN HCL 500 MG TAB PO SCH (09:00)
[2021-04-06] MEDS: LISDEXAMFETAMINE DIMESYLATE PO SCH (09:00)
[2021-04-06] MEDS: LITHIUM CARBONATE SLOW REL 300 MG TAB PO SCH (09:00)
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
[2021-04-06 18:21] LABS: Ami + Nortriptyline 146 mcg/L (100-250); Nortriptyline 51 mcg/L
== END 2021-04-06 11:15 | disposition home or self-care (01) | DRG 885 ==
LOC: ED 16:41 → 3S 21:19 → SUATTDRO 21:20 → 3S 21:20

== ENCOUNTER 2025-03-03 16:20 | Inpatient (IN) ==
--- NOTE | 2025-03-03 16:52 | Emergency Department Note ---
Impression & Plan Anxiety and depression ED Provider Note NAME: PHILIP OSPINA AGE: 49 SEX: F : 1975 ARRIVES VIA: Walk-In INFORMANT: Patient, ED PROVIDER(S): Vikas Ramirez DO CHIEF COMPLAINT: Anxiety and depression HPI: The patient is a 49-year-old female who presented to the emergency department for mental health evaluation. The patient's been having problems with anxiety and depression recently. She is having problems with family. The patient denies having any suicidal homicidal ideation. The patient went to see her primary therapist today and was sent to the emergency department for further evaluation as well as possible admission. ROS: See above HPI for pertinent positives & negatives. A total of 10 systems reviewed and were otherwise negative. PAST MEDICAL HISTORY: See Below PAST SURGICAL HISTORY: See Below FAMILY HISTORY: See Below SOCIAL HISTORY: See Below HOME MEDICATIONS: See Below ALLERGIES: See Below VITALS: See Below PHYSICAL EXAMINATION: GENERAL: The patient is awake and alert. She is very anxious appearing. EYES: The conjunctivae are clear. The pupils are round and reactive. EARS, NOSE, MOUTH AND THROAT: The nose is without any evidence of any deformity. NECK: The neck is nontender and supple. RESPIRATORY: Normal respiratory effort is noted there is no evidence of wheezing rhonchi or rales CARDIOVASCULAR: Regular rate and rhythm noted there no murmurs rubs or gallops normal S1 normal S2. GASTROINTESTINAL: The abdomen is soft. Abdomen is nontender. MUSCULOSKELETAL/EXTREMITIES: There is no evidence of gross deformity full range of motion is noted in the hips and shoulders. SKIN: There is no obvious evidence of any rash. There are no petechiae, pallor or cyanosis noted. NEUROLOGIC: Patient is awake alert and oriented x3 strength is symmetric patellar reflexes are 2+ bilaterally PSYCH: The patient is awake and alert. The patient's affect is flat. She is very tearful and anxious. She is denying any suicidal homicidal ideation at this time. MEDICAL DECISION MAKING: The patient is a 49-year-old female who presented to the emergency department for mental health evaluation. The patient was having very significant symptoms of anxiety. She was seen by her primary psychiatrist and sent to the emergency department for possible admission. Patient was medically cleared in the emergency department. The patient was treated with medications for anxiety. She was reevaluated multiple times. The patient was evaluated by the mental- health case specialist. She was felt to be a good candidate for inpatient management. Patient at this time is a voluntary evaluation. She is set to be evaluated by 3 S. in the morning. I discussed this with the patient and she is agreeable to this plan. The patient did have hematuria. She states that she does have a history of kidney stones in the past. She does have some urinary frequency but no dysuria. I do not feel this represents an infection at this time. I would prefer to wait for culture results prior to starting the patient on an antibiotic. This might change if the patient develops any other symptoms that would be considered consistent with urinary infection. Triage Nursing notes reviewed. Prior medical records reviewed Vital Signs: reviewed and remarkable for no significant abnormalities Differential diagnosis: Mood disorder, infection, hypoglycemia, electrolyte abnormalities, cardiac sources, intracerebral event, toxicologic, trauma, neurologic, as well as other pathologies. ER treatment provided: See below Diagnostics interpreted by me: ECG: none Laboratory studies: As stated above and show below. Imaging studies: See below. Consultation(s): I discussed this case with the emergency department health case specialist. The patient was evaluated by mentalhealth case specialist. The patient was signed out to Dr. Cary at change of shift. Please see his note for overnight care and further disposition. Past Med/Surg History Problem List (Updated 03/03/25 @ 22:53 by Vikas Ramirez DO) Anxiety and depression (Acute) Overactive bladder Breast pain, left Nephrolithiasis Encounter for pre-operative examination Anxiety Depression GERD (gastroesophageal reflux disease) Asthma (Acute) Allergic rhinitis due to dust (Acute) Obesity Restless legs syndrome Sleep related eating disorder Shortness of breath Routine gynecological examination Breast lump Infected sebaceous cyst of skin Embolic disease of toe Hematuria Hydronephrosis (Acute) Insomnia Ureteral stone Mild persistent asthma no inhalers Dyspnea on exertion Occ SOB, denies using any inhalers currently Palpitations Chronic history per review of records Type 2 diabetes mellitus NIDDM Medical History History of COVID-19 over a year Depression with suicidal ideation hx of History of high cholesterol NO MEDS Surgical History History of hysterectomy 03/07/18 @ [facility] Hx of colonoscopy Hx of section X2 Family History Son Asthma Family/Other Breast cancer Paternal Cousin Grandmother (Maternal) Uterine cancer Denies family history of Ovarian cancer Social History Smoking Status: Never smoker Second Hand Exposure: No; Do You Dip or Chew Tobacco: No; Hx Alcohol Use: Yes Alcohol type: beer, wine and hard liquor Hx Substance Use: No Preferred Language: [place] Communication Ability: Effective Visual Impairment: No Limitations Hearing Ability: Normal 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 Beliefs That Will Affect Care: None marital status: Legally Current Living Situation: Family Current Living Situation Comment: Lives with sisters current occupational status: employed Feels Safe at Home: Yes Gender Identity: Female Assistive Devices: Glasses Allergies Allergies Allergy/AdvReac Type Severity Reaction Status Date / Time amoxicillin Allergy Mild rash Verified 12/02/24 11:09 cephalexin [From Keflex] Allergy Mild rash Verified 12/02/24 11:09 house dust Allergy Mild itchy Verified 12/02/24 11:09 Sulfa (Sulfonamide Allergy Mild Rash Verified 12/02/24 11:09 Antibiotics) sulfamethoxazole Allergy Mild rash Verified 12/02/24 11:09 [From Bactrim] trimethoprim [From Bactrim] Allergy Mild rash Verified 12/02/24 11:09 Home Meds Home Medications Medication Instructions Recorded Confirmed aspirin 81 mg tablet,delayed 81 mg PO QAM 10/12/22 03/03/25 release (Diana Low Dose Aspirin) ergocalciferol (vitamin D2) 1,250 1,250 mcg PO WK 10/12/22 03/03/25 mcg (50,000 unit) capsule hydroxyzine HCl 25 mg tablet 75 mg PO TID 10/12/22 03/03/25 rosuvastatin 5 mg tablet 10 mg PO QPM 10/20/23 03/03/25 metformin 500 mg tablet,extended 500 mg PO BID 04/29/24 03/03/25 release 24 hr dextroamphetamine-amphetamine 10 10 mg PO BID 03/03/25 03/03/25 mg tablet escitalopram oxalate 20 mg tablet 20 mg PO QPM 03/03/25 03/03/25 lithium carbonate 150 mg PO BID 03/03/25 03/03/25 lorazepam 1 mg tablet 1 mg PO QAM 03/03/25 03/03/25 lorazepam 2 mg tablet 2 mg PO QPM 03/03/25 03/03/25 quetiapine 25 mg tablet 25 mg PO HS 03/03/25 03/03/25 Previous Rx's Medication Instructions Recorded albuterol sulfate 90 mcg/actuation 2 puff inhalation Q6H PRN 05/19/24 aerosol inhaler shortness of breath or wheezing #6.7 grams Results & Data (ED) Vital Signs Vital Signs - 24 hr 03/03/25 16:24 03/03/25 18:04 03/03/25 22:00 Temperature 36.5 C Temperature Source Temporal Artery Scan Pulse Rate 102 H Pulse Rate [Finger] 79 80 Pulse Rhythm [Finger] Regular Pulse Strength [Finger] Normal Respiratory Rate 18 18 20 Respiratory Effort / Characteristics Non-Labored Spontaneous Non-Labored Spontaneous Respiratory Depth Normal Normal Respiratory Pattern Regular Regular Blood Pressure 149/87 H Blood Pressure [Left Arm] 122/77 118/78 Blood Pressure Mean 107 Blood Pressure Mean [Left Arm] 92 91 Blood Pressure Position [Left Arm] Lying Pulse Oximetry 100 97 98 Oxygen Delivery Method Room Air Room Air Room Air Sepsis Recent Fever Within 48 Hours No Sepsis New/Unexplained Change in Mental Status No Sepsis Action Taken by Nursing No Action Required Home Medications Current Medication List: was personally reviewed by me Laboratory Data Attestation: I reviewed the patient's lab results. 03/03/25 17:00 03/03/25 17:00 Lab Results 03/03/25 Range/Units 17:00 WBC 13.18 H (4.8-10.8) K/ul RBC 5.36 (4.20-5.40) M/uL Hgb 14.9 (12.0-16.0) g/dL Hct 43.0 (37.0-47.0) % MCV 80.2 (80.0-100.0) fL MCH 27.8 (25.0-34.0) pg MCHC 34.7 (32.0-36.0) g/dL RDW Std Deviation 37.3 (36.4-46.3) fL RDW Coeff of Nakul 13.0 (11.5-14.5) % Plt Count 399 (130-400) K/uL MPV 9.8 (9.4-12.4) fL Immature Gran % (Auto) 0.2 % Neut % (Auto) 68.5 % Lymph % (Auto) 24.7 % [place]urry % (Auto) 5.6 % Eos % (Auto) 0.5 % Baso % (Auto) 0.5 % Neut # (Auto) 9.03 H (1.40-6.50) K/uL Lymph # (Auto) 3.25 (1.20-3.40) K/uL Scurry # (Auto) 0.74 H (0.11-0.59) K/uL Eos # (Auto) 0.07 (0.00-0.50) K/uL Baso # (Auto) 0.06 (0.00-0.20) K/uL Immature Gran # (Auto) 0.03 (0.01-0.20) K/uL Sodium 140 (136-145) mmol/L Potassium 3.5 (3.5-5.1) mmol/L Chloride 105 (98-107) mmol/L Carbon Dioxide 26 (21-32) mmol/L Anion Gap 9 (3-11) BUN 16 (6-23) mg/dl Creatinine 0.85 (0.6-1.2) mg/dl Est Cr Clr Drug Dosing 68.3 ml/min eGFR 83.41 BUN/Creatinine Ratio 18.8 (10-20) Glucose 91 (70-99(Fasting)) mg/dl Calcium 9.7 (8.6-10.3) mg/dl Total Bilirubin 0.3 (0.2-1.0) mg/dl AST 14 (13-39) U/L ALT 11 (7-52) U/L Alkaline Phosphatase 71 (34-104) U/L Total Protein 7.8 (6.0-8.3) gm/dl Albumin 4.8 (3.4-5.0) gm/dl Globulin 3.0 (2.5-4.0) gm/dl Albumin/Globulin Ratio 1.6 (0.9-2) TSH 1.960 (0.300-4.500) uIu/ml Urine Color Yellow Urine Appearance Clear (Clear) Urine pH 5.5 (4.5-7.5) Ur Specific [place] 1.031 H (1.000-1.030) Urine Protein 1+ H (Negative) Urine Glucose (UA) Negative (Negative) Urine Ketones 1+ H (Negative) Urine Blood 3+ H (Negative) Urine Nitrite Negative (Negative) Urine Bilirubin Negative (Negative) Urine Urobilinogen Negative (Negative) Ur Leukocyte Esterase Negative (Negative) Urine WBC (Auto) 0-5 (0-5) /hpf Urine RBC (Auto) >20 H (0-2) /hpf U Hyaline Cast (Auto) 0-2 (0-2) /lpf U Epithel Cells (Auto) 6-10 H (0-2) /hpf Urine Bacteria (Auto) 2+ H (None Seen) Calcium Oxalate Crystal Present A (None Prsent) Urine Mucus Present A (None Prsent) Urine Comment Salicylates < 3.0 L (3.0-30) mg/dl Urine Opiates Screen Neg (Neg) Ur Methadone, Qual Neg (Neg) Urine Fentanyl Screen Neg (Neg) Acetaminophen < 3 L (10-30) ug/ml Urine Barbiturates Neg (Neg) Ur Phencyclidine (PCP) Neg (Neg) U Amphetamin/Meth Scrn Pos H (Neg) MDMA (Ecstasy) Screen Pos H (Neg) U Benzodiazepines Scrn Neg (Neg) Ur Cocaine Metabolite Neg (Neg) U Marijuana (THC) Screen Neg (Neg) Ethyl Alcohol mg/dL < 10.0 (<10.0) mg/dl SARS-CoV-2, RNA, NAAT NEGATIVE (NEGATIVE) Administered Medications Amphetamine/Dextroamphetamine (Dextroamphetamine/Amphetamine Ir 10 Mg Tab) 10 mg PO BID BEAU Stop: 03/17/25 22:14 Last Admin: 03/03/25 22:40 Dose: 10 mg Documented By: ASIM Timberlake Carbonate (Timberlake Carbonate 300 Mg Tab) 150 mg PO BID BEAU Stop: 04/02/25 22:14 Last Admin: 03/03/25 22:43 Dose: 150 mg Documented By: ASIM Metformin HCl (Metformin Hcl Er 500 Mg Tabcr) 500 mg PO BID BEAU Stop: 04/02/25 22:14 Last Admin: 03/03/25 22:38 Dose: 500 mg Documented By: ASIM Discontinued Medications Lorazepam (Lorazepam 1 Mg Tab) 1 mg PO NOW STA Stop: 03/03/25 16:50 Last Admin: 03/03/25 18:01 Dose: 1 mg Documented By: CHANCE Non-Formulary Medication (Timberlake Carbonate) 150 mg PO BID BEAU Stop: 04/02/25 22:14 Last Admin: 03/03/25 22:48 Dose: Not Given Documented By: [facility] Discharge Plan Visit Data Chief Complaint: Mental Health Evaluation Stated Complaint: MHE ED Provider: Vikas Ramirez Discharge Problem: Anxiety and depression Patient Disposition: Still a Patient Condition: Fair Forms Stand Alone Forms: My [facility] [place], Suicide Prevention Resources Prescriptions Prescriptions: No Action albuterol sulfate 90 mcg/actuation HFA aerosol inhaler 2 puff inhalation Q6H PRN (Reason: shortness of breath or wheezing) Qty: 6.7 0RF rosuvastatin 5 mg tablet 10 mg PO QPM metformin 500 mg tablet extended release 24 hr 500 mg PO BID aspirin [Diana Low Dose Aspirin] 81 mg Tablet,Delayed Release (Dr/Ec) 81 mg PO QAM hydroxyzine HCl 25 mg Tablet 75 mg PO TID ergocalciferol (vitamin D2) 1,250 mcg (50,000 unit) Capsule 1,250 mcg PO WK lithium carbonate 150 mg PO BID quetiapine 25 mg Tablet 25 mg PO HS escitalopram oxalate 20 mg Tablet 20 mg PO QPM lorazepam 1 mg Tablet 1 mg PO QAM lorazepam 2 mg Tablet 2 mg PO QPM dextroamphetamine-amphetamine 10 mg Tablet 10 mg PO BID Rx Instructions: administer doses at least 4-6 hours apart Referrals Referrals: Karla Romero DO [Primary Care Provider] -
[2025-03-03 17:19] LABS: Hematocrit (blood only) 43.0 % (37.0-47.0); Hemoglobin 14.9 g/dL (12.0-16.0); Immature Granulocytes # (auto) 0.03 K/uL (0.01-0.20); Immature Granulocytes % (auto) 0.2 %; Mean Corpuscular Hemoglobin 27.8 pg (25.0-34.0); Mean Corpuscular Volume 80.2 fL (80.0-100.0); Platelet Count 399 K/uL (130-400); RDW Standard Deviation 37.3 fL (36.4-46.3); Red Blood Count 5.36 M/uL (4.20-5.40); White Blood Count 13.18 K/ul (4.8-10.8)
[2025-03-03 17:27] LABS: Appearance Urine Clear (Clear); Bacteria Urine Automated 2+ (None Seen); Cast Urine Automated 0-2 /lpf (0-2); Glucose Urine UA Negative (Negative); RBC Urine Automated >20 /hpf (0-2); WBC Urine Automated 0-5 /hpf (0-5)
[2025-03-03 17:39] LABS: Alanine Aminotransferase 11.0 U/L (7-52); Albumin Globulin Ratio 1.6 (0.9-2); Albumin Level 4.8 gm/dl (3.4-5.0); Alkaline Phosphatase 71.0 U/L (34-104); Anion Gap 9.0 (3-11); Bilirubin,Total 0.3 mg/dl (0.2-1.0); Blood Urea Nitrogen 16.0 mg/dl (6-23); Calcium 9.7 mg/dl (8.6-10.3); Carbon Dioxide 26.0 mmol/L (21-32); Chloride 105.0 mmol/L (98-107); Creatinine Clr Calc Pharmacy 68.3 ml/min; Globulin 3.0 gm/dl (2.5-4.0); Glucose 91.0 mg/dl (70-99(Fasting)); Potassium 3.5 mmol/L (3.5-5.1); Sodium 140.0 mmol/L (136-145); Total Protein 7.8 gm/dl (6.0-8.3)
[2025-03-03 17:47] LABS: Acetaminophen < 3 ug/ml (10-30); Salicylate < 3.0 mg/dl (3.0-30)
[2025-03-03 17:52] LABS: Thyroid Stimulating Hormone 1.96 uIu/ml (0.300-4.500)
[2025-03-03] MEDS: LORazepam 1 MG TAB PO STA (18:01)
[2025-03-03 18:05] LABS: Amphetamines+Metham, Urine Pos (Neg); MDMA (Ecstacy), Urine Pos (Neg); Marijuana, Urine Neg (Neg)
[2025-03-03] MEDS ORDERED: ALBUTEROL HFA 8 GM INHALER INH PRN (22:14)
[2025-03-03] MEDS: DEXTROAMPHETAMINE/AMPHETAMINE IR 10 MG TAB PO SCH (22:40)
[2025-03-03] MEDS: LITHIUM CARBONATE 300 MG TAB PO SCH (22:43)
[2025-03-03] MEDS: LITHIUM CARBONATE 150 MG PO SCH (22:48)
--- NOTE | 2025-03-03 23:56 | Emergency Department Note ---
ED Visit Note Patient was signed out to me at change of shift by Dr. Ramirez, pending evaluation for inpatient psychiatric care for anxiety/depression. Patient is currently under 201/voluntary. Bed search has been initiated. Patient was signed out to my colleague, Dr. Duong, at change of shift pending ongoing bed search for final disposition. .
[2025-03-04] MEDS: MELATONIN 3 MG TAB PO PRN (01:36)
[2025-03-04] MEDS: ASPIRIN 81 MG ECTAB PO SCH (08:26)
[2025-03-04] MEDS: LORazepam 1 MG TAB PO SCH ×2 (08:26→17:11)
[2025-03-04] MEDS: ERGOCALCIFEROL 1250 MCG (50,000 UNITS) CAP PO SCH (08:33)
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
[2025-03-04] MEDS ORDERED: SODIUM CHLORIDE 0.65% NA SOLN 45 ML (OCEAN) PRN (09:26)
[2025-03-04] MEDS ORDERED: ALUMINUM/MAGNESIUM SUSP 30 ML UDC PO PRN (09:26)
[2025-03-04] MEDS ORDERED: BISMUTH SUBSALICYLATE 262 MG CHEW PO PRN (09:26)
[2025-03-04] MEDS ORDERED: MAGNESIUM HYDROXIDE SUSP 30 ML UDC PO PRN (09:26)
[2025-03-04] MEDS ORDERED: ALBUTEROL HFA 8 GM INHALER INH PRN (13:51)
[2025-03-04] MEDS: ACETAMINOPHEN 325 MG TAB PO PRN (13:54)
[2025-03-04] MEDS: PNEUMOCOCCAL VACCINE (PCV20) 20-VAL CONJ-DIP CRM/PF 0.5 ML SYR IM ONE (17:06)
[2025-03-04] MEDS: INFLUENZA VACC TS2025-26(6m+)/PF (IIV3) 0.5mL Syr IM ONE (17:08)
[2025-03-04] MEDS ORDERED: NON-FORMULARY PATIENT'S OWN MED EXT SCH (19:30)
[2025-03-04] MEDS: ESCITALOPRAM OXALATE 20 MG TAB PO SCH (20:37)
[2025-03-04] MEDS: LITHIUM CARBONATE 300 MG TAB PO SCH (20:38)
[2025-03-04] MEDS: MIRTAZAPINE TAB 15 MG TAB PO SCH (20:40)
[2025-03-04] MEDS ORDERED: LORazepam 1 MG TAB PO SCH (21:00)
[2025-03-04] MEDS ORDERED: ROSUVASTATIN CALCIUM 5 MG TAB PO SCH (21:00)
[2025-03-04] MEDS ORDERED: ESCITALOPRAM OXALATE 20 MG TAB PO SCH (21:00)
[2025-03-05] MEDS ORDERED: ESTRADIOL 0.05 MG/24HRS TDSY TD SCH (09:00)
--- NOTE | 2025-03-05 09:06 | Psychiatric Progress Note ---
Date of Service March 05, 2025 Impression / Recommendations Impression PHILIP OSPINA is a 49-year-old woman who currently lives in [place] with her sister, two nephews, and her son, has a history of major depression, anxiety, and was admitted on 03/04/25 08:06 on a 201 voluntary commitment for severe depression and difficulty attending to ADLs. Diagnostically consistent with major depressive disorder with anxious distress as well as generalized anxiety disorder in the context of multiple psychosocial stressors including housing instability, financial concerns and caring for a son with autism as well as difficulty coping with the end of relationship. She has had increasing functional impairment in the outpatient setting despite weekly outpatient appointments with her psychiatric provider and multiple recent medication changes and augmentations in an attempt to improve her symptoms. A: Ongoing depression and presents with decreased spontaneous speech and blunted affect. Continues to report anxiety but depression appears much more prominent. RLS with mirtazapine so will discontinue this. No prior SNRI trials per outpatient record review. Will discontinue [place] given limited past benefit and no past history to suggest hypomania/BPAD type II. [facility] records reviewed and notable for extensive past medication trials including: SSRIs: Prozac up to 60 mg, Celexa, Paxil Antipsychotics: Abilify, Rexulti, Trilafon, Vraylar, Seroquel Mood stabilizer: Lamictal, lithium Other: Gabapentin, propranolol, Elavil, melatonin, Lunesta, mirtazapine, Ambien, Pamelor, trazodone Stimulants: Vyvanse, Adderall, Dexedrine ER, Concerta, Adderall XR, Provigil, Ritalin, Focalin, Nuvigil Discussed medication treatment options in detail. Reviewed risks, benefits and alternatives. She confirms no known history of hypomania to suggest BPAD type II. Will treat as MDD vs persistent depressive disorder as well as ROSA. Discussed option to continue escitalopram vs SNRI trial. Reviewed that she's explored most other SSRI augmentation strategies except Wellbutrin and Cytomel. She's also tried almost every sleep medication but discussed option to try doxepin for off-label use for insomnia which she'd like to do and propranolol prn for off-label use for anxiety. Reviewed risks including but not limited to serotonin syndrome, sedation, weight gain and low BP/syncope with propranolol. Overall, I spent a total of 52 minutes on this case including meeting with the patient, reviewing the chart, nursing report, multidisciplinary team meeting, orders, and documentation and review of outpatient records. (1) Recurrent severe major depressive disorder with anxiety: (2) ROSA (generalized anxiety disorder): (3) Type 2 diabetes mellitus: Plan 03/05/2025: -Stop mirtazapine -Start doxepin 10mg HS -Discontinue [place] 03/04/2025: The patient was admitted to the [facility] ([facility] health unit) on q15 min checks (behavioral with suicide precautions) for safety. The patient will participate in group, recreational, and milieu therapies and will be offered additional individual and family sessions as clinically appropriate. -stop Seroquel -Stop Adderall -Start mirtazapine 15mg HS -Continue lexapro 20mg daily -Continue [place] 150mg BID -Decrease Ativan to 0.5mg qAM and 1mg daily before dinner -Requesting outpatient psychiatry records to review past SSRI/SNRI trials and confirm escitalopram is a new addition Inventory Assets Strengths: supportive relationships, willing to get treatment Needs: safety and stabilization, medication adjustment, additional coping skills, increased outpatient services Suicide Risk Level Suicide Risk Level: Moderate (q15 min suicide checks) (increased depression and anxiety with functional impairment but denies active SI, states children are [place] deterrent/reason for living and feels safe in the hospital) Suicide Risk Level Comments: Risk Factors Assessment Male: No : No Do You Have Access To A Gun?: No Health Problems: Yes Mental Health Diagnoses: Yes Substance Use Disorders: No Previous Attempt: No Family History of Suicide: No Previous Psychiatric Hospitalization: Yes Hopelessness: Yes Protective Factors Assessment Employed: Yes Stable Relationships: Yes Supportive Family: Yes Good Rapport with Provider: Yes Interval History Identifying Information PHILIP OSPINA is a 49-year-old woman who currently lives in [place] with her sister, two nephews, and her son, has a history of major depression, anxiety, and was admitted on 03/04/25 08:06 on a 201 voluntary commitment for severe depression and difficulty attending to ADLs. Chief Complaint "I'm very tired". Review of Systems Sleep Information Total Hours of Sleep: 5 Meal Information Percent Meal Consumed - Lunch: 50 Percent Meal Consumed - Dinner: 25 Subjective Subjective Patient was seen & assessed and interval progress reviewed with treatment team. Attended evening groups rated mood as "3" and "nervous and sad". Tearful in the evenings. His nephews visited. She had trouble falling and staying asleep. Today reports headache and fatigue due to restless legs last night. Has difficulty discussing symptoms but reports ongoing depression and anxiety. Continues to decline use of rackman (offered during intake and again today). Reviewed her records from [facility] and past medication trials. Physical Exam Psychiatric Orientation: alert and oriented x 3 Apperance: appropriately dressed and appropriately groomed Eye Contact: + fair eye contact Motor Behavior: no abnormal motor movements Speech: + abnormal rate/rhythm/volume of speech (soft) Affect: + depressed affect and + blunted affect Mood: + depressed mood and + anxious mood Thought Process: + concrete thought process Thought Content: reality based without delusions Suicidal Thoughts: denies suicidal plan and denies suicidal intent; + reports suicidal thoughts (intermittent passive thoughts ) Homicidal Thoughts: denies homicidal thoughts Hallucinations: no auditory hallucinations and no visual hallucinations Cognition: recent memory grossly intact, remote memory grossly intact, attention grossly intact and language grossly intact Estimated Intelligence: consistent with education level Insight: + limited insight Judgment: + limited judgement Vital Signs (Past 24 Hours) Last Vital Signs Temp 36.1 C L 03/05/25 06:36 Pulse 82 03/05/25 06:36 Resp 16 03/05/25 06:36 BP 111/77 03/05/25 06:37 Pulse Ox 98 03/05/25 06:36 O2 Del Method Room Air 03/05/25 06:36 Results & Data ([facility]) Laboratory Results Laboratory Results - last 24 hr 03/04/25 20:48 POC Glucose 110 H Current Inpatient Medications Current Inpatient Medications: Current Inpatient Medications Acetaminophen (Acetaminophen 325 Mg Tab) 650 mg PO Q4H PRN PRN Reason: Headache or Minor Fever Stop: 04/03/25 09:25 Last Admin: 03/04/25 13:54 Dose: 650 mg Al Hydrox/Mg Hydrox/Simethicone (Aluminum/Magnesium Susp 30 Ml Udc) 30 ml PO Q4H PRN PRN Reason: GI Upset Stop: 04/03/25 09:25 Albuterol (Albuterol Hfa 8 Gm Inhaler) 2 puffs INH Q6H PRN PRN Reason: Shortness Of Breath Or Wheezing Stop: 04/03/25 13:50 Aspirin (Aspirin 81 Mg Ectab) 81 mg PO QAM [facility] Stop: 04/04/25 08:59 Bismuth Subsalicylate (Bismuth Subsalicylate 262 Mg Chew) 2 tab PO Q30M PRN PRN Reason: Loose Stool/Diarrhea Stop: 04/03/25 09:25 Ergocalciferol (Ergocalciferol 1250 Mcg (50,000 Units) Cap) 1,250 mcg PO Th@0900 [facility] Stop: 04/10/25 08:59 Escitalopram Oxalate (Escitalopram Oxalate 20 Mg Tab) 20 mg PO QPM [facility] Stop: 04/03/25 20:59 Last Admin: 03/04/25 20:37 Dose: 20 mg Estradiol (Twice Weekly- Estradiol 0.05 Mg/24hrs Tdsy) 1 patch TD TuFr@0900 [facility] Stop: 04/04/25 08:59 Hydroxyzine HCl (Hydroxyzine Hcl 25 Mg Tab) 50 mg PO HSZ PRN PRN Reason: Insomnia Stop: 04/03/25 09:25 Last Admin: 03/04/25 20:53 Dose: 50 mg Hydroxyzine HCl (Hydroxyzine Hcl 25 Mg Tab) 25 mg PO Q4H PRN PRN Reason: Anxiety Stop: 04/03/25 09:25 Fruitdale Carbonate (Fruit[place] Carbonate 300 Mg Tab) 150 mg PO BID [facility] Stop: 04/03/25 20:59 Last Admin: 03/04/25 20:38 Dose: 150 mg Lorazepam (Lorazepam 0.5 Mg Tab) 0.5 mg PO DAILY [facility] Stop: 04/04/25 08:59 Lorazepam (Lorazepam 1 Mg Tab) 1 mg PO DAILYBD [facility] Stop: 04/03/25 17:14 Last Admin: 03/04/25 17:11 Dose: 1 mg Magnesium Hydroxide (Magnesium Hydroxide Susp 30 Ml Udc) 30 ml PO DAILY PRN PRN Reason: Constipation Stop: 04/03/25 09:25 Metformin HCl (Metformin Hcl Er 500 Mg Tabcr) 1,000 mg PO BID [facility] Stop: 04/03/25 20:59 Last Admin: 03/04/25 20:43 Dose: 1,000 mg Mirtazapine (Mirtazapine Tab 15 Mg Tab) 15 mg PO HS [facility] Stop: 04/03/25 21:59 Last Admin: 03/04/25 20:40 Dose: 15 mg Rosuvastatin Calcium (Rosuvastatin Calcium 10 Mg Tab) 10 mg PO QAM [facility] Stop: 04/04/25 08:59 Sodium Chloride (Sodium Chloride 0.65% Na Soln 45 Ml ([place])) 1 - 2 sprays NA PRN PRN PRN Reason: Nasal Dryness/Congestion Stop: 04/03/25 09:25 Mental Health & Subst Abuse Tx Therapist Name of Therapist: Online therapist from [place] [employer] Name of School Bus Technician: n/a Post Discharge Appointments Primary Care Physician Name Of Family Doctor/PCP: Dr. Karla Romero
[2025-03-05] MEDS: ASPIRIN 81 MG ECTAB PO SCH (09:57)
[2025-03-05] MEDS: ROSUVASTATIN CALCIUM 10 MG TAB PO SCH (09:58)
[2025-03-05] MEDS: LORazepam 0.5 MG TAB PO SCH (09:58)
[2025-03-05] MEDS: DOXEPIN HCL 10 MG CAPSULE PO SCH (20:59)
[2025-03-05] MEDS: ESCITALOPRAM OXALATE 20 MG TAB PO SCH (20:59)
--- NOTE | 2025-03-06 09:20 | Psychiatric Progress Note ---
Date of Service March 06, 2025 Impression / Recommendations Impression PHILIP OSPINA is a 49-year-old woman who currently lives in [place] with her sister, two nephews, and her son, has a history of major depression, anxiety, and was admitted on 03/04/25 08:06 on a 201 voluntary commitment for severe depression and difficulty attending to ADLs. Diagnostically consistent with major depressive disorder with anxious distress as well as generalized anxiety disorder in the context of multiple psychosocial stressors including housing instability, financial concerns and caring for a son with autism as well as difficulty coping with the end of relationship. She has had increasing functional impairment in the outpatient setting despite weekly outpatient appointments with her psychiatric provider and multiple recent medication changes and augmentations in an attempt to improve her symptoms. A: Ongoing depression and significant tearfulness today and overwhelmed by simple tasks. Struggles to identify her emotions. Discussed medication treatment options in detail including SNRI vs Cytomel augmentation vs alternative options. Discussed risks, benefits and alternatives. Patient would like to start and consented to Effexor XR for depression and anxiety. Reviewed side effects including but not limited to: GI, WILEY, sexual side effects, elevated BP, elevated HR and night sweats, serotonin syndrome. Overall, I spent a total of 45 minutes on this case including meeting with the patient, reviewing the chart, nursing report, multidisciplinary team meeting, orders, and documentation. (1) Recurrent severe major depressive disorder with anxiety: (2) ROSA (generalized anxiety disorder): (3) Type 2 diabetes mellitus: Plan 03/06/2025: -Decrease escitalopram to 10mg HS -Start Effexor XR 37.5mg daily 03/05/2025: -Stop mirtazapine -Start doxepin 10mg HS -Discontinue [place] 03/04/2025: The patient was admitted to the [facility] ([facility] mental [facility] unit) on q15 min checks (behavioral with suicide precautions) for safety. The patient will participate in group, recreational, and milieu therapies and will be offered additional individual and family sessions as clinically appropriate. -stop Seroquel -Stop Adderall -Start mirtazapine 15mg HS -Continue lexapro 20mg daily -Continue [place] 150mg BID -Decrease Ativan to 0.5mg qAM and 1mg daily before dinner -Requesting outpatient psychiatry records to review past SSRI/SNRI trials and confirm escitalopram is a new addition Inventory Assets Strengths: supportive relationships, willing to get treatment Needs: safety and stabilization, medication adjustment, additional coping skills, increased outpatient services Suicide Risk Level Suicide Risk Level: Moderate (q15 min suicide checks) (increased depression and anxiety with functional impairment but denies active SI, states children are strong deterrent/reason for living and feels safe in the hospital) Suicide Risk Level Comments: Risk Factors Assessment Male: No : No Do You Have Access To A Gun?: No Health Problems: Yes Mental Health Diagnoses: Yes Substance Use Disorders: No Previous Attempt: No Family History of Suicide: No Previous Psychiatric Hospitalization: Yes Hopelessness: Yes Protective Factors Assessment Employed: Yes Stable Relationships: Yes Supportive Family: Yes Good Rapport with Provider: Yes Interval History Identifying Information PHILIP OSPINA is a 49-year-old woman who currently lives in [place] with her sister, two nephews, and her son, has a history of major depression, anxiety, and was admitted on 03/04/25 08:06 on a 201 voluntary commitment for severe depression and difficulty attending to ADLs. Chief Complaint "Ok". Review of Systems Sleep Information Total Hours of Sleep: 10.5 Meal Information Percent Meal Consumed - Breakfast: 25 Percent Meal Consumed - Lunch: 100 Percent Meal Consumed - Dinner: 25 Subjective Subjective Patient was seen & assessed and interval progress reviewed with nursing and social work. Attended daytime groups but more isolative in the evening. Slept well overnight. Still very flat. Today she is very tearful, describing: "I feel lost". She's also upset her sister hasn't called her since she's been in the hospital, describes that her sister doesn't understand her depression and thinks she should just get better somehow on her own. She slept well with the doxepin and doesn't feel tired today. Ongoing depression (10/08) and anxiety (7/). She was unable to write down anything during CBT group and feels she'll struggle to even journal as she feels overwhelmed by thought of journaling. Denies any medication side effects. Physical Exam Psychiatric Orientation: alert and oriented x 3 Apperance: appropriately dressed and appropriately groomed Eye Contact: + fair eye contact Motor Behavior: no abnormal motor movements Speech: + abnormal rate/rhythm/volume of speech (soft) Affect: + depressed affect and + tearful affect Mood: + depressed mood and + anxious mood Thought Process: + concrete thought process Thought Content: reality based without delusions Suicidal Thoughts: denies suicidal plan and denies suicidal intent; + reports suicidal thoughts (intermittent passive thoughts ) Homicidal Thoughts: denies homicidal thoughts Hallucinations: no auditory hallucinations and no visual hallucinations Cognition: recent memory grossly intact, remote memory grossly intact, attention grossly intact and language grossly intact Estimated Intelligence: consistent with education level Insight: + limited insight Judgment: + limited judgement Vital Signs (Past 24 Hours) Last Vital Signs Temp 36.2 C L 03/06/25 06:51 Pulse 83 03/06/25 06:51 Resp 16 03/06/25 06:51 BP 102/66 03/06/25 06:51 Pulse Ox 98 03/06/25 06:51 O2 Del Method Room Air 03/06/25 06:51 Results & Data ([facility]) Laboratory Results Laboratory Results - last 24 hr 03/05/25 03/05/25 03/06/25 09:55 20:23 08:36 POC Glucose 101 H 147 H 101 H Current Inpatient Medications Current Inpatient Medications: Current Inpatient Medications Acetaminophen (Acetaminophen 325 Mg Tab) 650 mg PO Q4H PRN PRN Reason: Headache or Minor Fever Stop: 04/03/25 09:25 Last Admin: 03/05/25 13:43 Dose: 650 mg Al Hydrox/Mg Hydrox/Simethicone (Aluminum/Magnesium Susp 30 Ml Udc) 30 ml PO Q4H PRN PRN Reason: GI Upset Stop: 04/03/25 09:25 Albuterol (Albuterol Hfa 8 Gm Inhaler) 2 puffs INH Q6H PRN PRN Reason: Shortness Of Breath Or Wheezing Stop: 04/03/25 13:50 Aspirin (Aspirin 81 Mg Ectab) 81 mg PO QAM [facility] Stop: 04/04/25 08:59 Last Admin: 03/06/25 09:06 Dose: 81 mg Bismuth Subsalicylate (Bismuth Subsalicylate 262 Mg Chew) 2 tab PO Q30M PRN PRN Reason: Loose Stool/Diarrhea Stop: 04/03/25 09:25 Doxepin HCl (Doxepin Hcl 10 Mg Capsule) 10 mg PO HS [facility] Stop: 04/04/25 21:59 Last Admin: 03/05/25 20:59 Dose: 10 mg Ergocalciferol (Ergocalciferol 1250 Mcg (50,000 Units) Cap) 1,250 mcg PO Th@0900 [facility] Stop: 04/10/25 08:59 Escitalopram Oxalate (Escitalopram Oxalate 20 Mg Tab) 20 mg PO QPM [facility] Stop: 04/04/25 20:59 Last Admin: 03/05/25 20:59 Dose: 20 mg Estradiol (Twice Weekly- Estradiol 0.05 Mg/24hrs Tdsy) 1 patch TD TuFr@0900 [facility] Stop: 04/04/25 08:59 Last Admin: 03/05/25 09:59 Dose: 1 patch Hydroxyzine HCl (Hydroxyzine Hcl 25 Mg Tab) 50 mg PO HSZ PRN PRN Reason: Insomnia Stop: 04/03/25 09:25 Last Admin: 03/04/25 20:53 Dose: 50 mg Hydroxyzine HCl (Hydroxyzine Hcl 25 Mg Tab) 25 mg PO Q4H PRN PRN Reason: Anxiety Stop: 04/03/25 09:25 Lorazepam (Lorazepam 0.5 Mg Tab) 0.5 mg PO DAILY [facility] Stop: 04/04/25 08:59 Last Admin: 03/06/25 09:06 Dose: 0.5 mg Lorazepam (Lorazepam 1 Mg Tab) 1 mg PO DAILYBD [facility] Stop: 04/03/25 17:14 Last Admin: 03/05/25 17:35 Dose: 1 mg Magnesium Hydroxide (Magnesium Hydroxide Susp 30 Ml Udc) 30 ml PO DAILY PRN PRN Reason: Constipation Stop: 04/03/25 09:25 Metformin HCl (Metformin Hcl Er 500 Mg Tabcr) 1,000 mg PO BID [facility] Stop: 04/03/25 20:59 Last Admin: 03/06/25 09:06 Dose: 1,000 mg Propranolol HCl (Propranolol Hcl 10 Mg Tab) 10 mg PO TID PRN PRN Reason: anxiety Stop: 04/04/25 20:59 Rosuvastatin Calcium (Rosuvastatin Calcium 10 Mg Tab) 10 mg PO QAM [facility] Stop: 04/04/25 08:59 Last Admin: 03/06/25 09:06 Dose: 10 mg Sodium Chloride (Sodium Chloride 0.65% Na Soln 45 Ml ([place])) 1 - 2 sprays NA PRN PRN PRN Reason: Nasal Dryness/Congestion Stop: 04/03/25 09:25 Mental Health & Subst Abuse Tx Psychiatrist Name of Psychiatrist: [facility]-Dr. Lehman Psychiatrist's Therapist Name of Therapist: Online therapist from [place] [employer] Name of [employer]: [employer] Post Discharge Appointments Primary Care Physician Name Of Family Doctor/PCP: [facility]-Dr. Karla Romero Primary Care Provider Appointment Comment: Follow up as needed Contact Information Discharge Discharge Address: [facility] [address], [place] [id number]
[2025-03-06] MEDS: PROPRANOLOL HCL 10 MG TAB PO PRN (11:11)
[2025-03-06] MEDS: VENLAFAXINE HCL XR 37.5 MG CAPXR PO SCH (14:53)
[2025-03-06] MEDS: ESCITALOPRAM OXALATE 10 MG TAB PO SCH (21:18)
--- NOTE | 2025-03-07 09:10 | Psychiatric Progress Note ---
Date of Service March 07, 2025 Impression / Recommendations Impression PHILIP OSPINA is a 49-year-old woman who currently lives in [place] with her sister, two nephews, and her son, has a history of major depression, anxiety, and was admitted on 03/04/25 08:06 on a 201 voluntary commitment for severe depression and difficulty attending to ADLs. Diagnostically consistent with major depressive disorder with anxious distress as well as generalized anxiety disorder in the context of multiple psychosocial stressors including housing instability, financial concerns and caring for a son with autism as well as difficulty coping with the end of relationship. She has had increasing functional impairment in the outpatient setting despite weekly outpatient appointments with her psychiatric provider and multiple recent medication changes and augmentations in an attempt to improve her symptoms. A: Ongoing depression and more sleep difficulty last night due to anxiety. Reviewed mindfulness practices and sleep hygiene practices. Will continue with cross-taper to venlafaxine ER. Overall, I spent a total of 38 minutes on this case including meeting with the patient, reviewing the chart, nursing report, orders, and documentation. (1) Recurrent severe major depressive disorder with anxiety: (2) ROSA (generalized anxiety disorder): (3) Type 2 diabetes mellitus: Plan 03/07/2025: -Decrease escitalopram to 5mg HS -Increase Effexor XR to 75mg tomorrow 03/06/2025: -Decrease escitalopram to 10mg HS -Start Effexor XR 37.5mg daily 03/05/2025: -Stop mirtazapine -Start doxepin 10mg HS -Discontinue [place] 03/04/2025: The patient was admitted to the [facility] ([facility]) on q15 min checks (behavioral with suicide precautions) for safety. The patient will participate in group, recreational, and milieu therapies and will be offered additional individual and family sessions as clinically appropriate. -stop Seroquel -Stop Adderall -Start mirtazapine 15mg HS -Continue lexapro 20mg daily -Continue [place] 150mg BID -Decrease Ativan to 0.5mg qAM and 1mg daily before dinner -Requesting outpatient psychiatry records to review past SSRI/SNRI trials and confirm escitalopram is a new addition Inventory Assets Strengths: supportive relationships, willing to get treatment Needs: safety and stabilization, medication adjustment, additional coping skills, increased outpatient services Suicide Risk Level Suicide Risk Level: Moderate (q15 min suicide checks) (increased depression and anxiety with functional impairment but denies active SI, states children are strong deterrent/reason for living and feels safe in the hospital) Suicide Risk Level Comments: Risk Factors Assessment Male: No : No Do You Have Access To A Gun?: No Health Problems: Yes Mental Health Diagnoses: Yes Substance Use Disorders: No Previous Attempt: No Family History of Suicide: No Previous Psychiatric Hospitalization: Yes Hopelessness: Yes Protective Factors Assessment Employed: Yes Stable Relationships: Yes Supportive Family: Yes Good Rapport with Provider: Yes Interval History Identifying Information PHILIP OSPINA is a 49-year-old woman who currently lives in [place] with her sister, two nephews, and her son, has a history of major depression, anxiety, and was admitted on 03/04/25 08:06 on a 201 voluntary commitment for severe depression and difficulty attending to ADLs. Chief Complaint "Nervous about work". Review of Systems Sleep Information Total Hours of Sleep: 6.25 Meal Information Percent Meal Consumed - Breakfast: 50 Percent Meal Consumed - Lunch: 50 Percent Meal Consumed - Dinner: 50 Subjective Subjective Patient was seen & assessed and interval progress reviewed. Attended groups. Got prn propranolol before bed due to anxiety. Today she reports ongoing depression and anxiety. Rates her mood as "4 or 5". She is nervous about work today but was glad her sister visited today which was surprise. She struggled to sleep last night. She isn't sure why but was thinking about a lot of anxious worries before falling asleep. Discussed using mindfulness meditation tonight before bed given history of repeated sleep medication trials with limited to no benefit. Tolerating medication changes so far. Physical Exam Psychiatric Orientation: alert and oriented x 3 Apperance: appropriately dressed and appropriately groomed Eye Contact: + fair eye contact Motor Behavior: no abnormal motor movements Speech: + abnormal rate/rhythm/volume of speech (soft) Affect: + depressed affect and + tearful affect Mood: + depressed mood and + anxious mood Thought Process: + concrete thought process Thought Content: reality based without delusions Suicidal Thoughts: denies suicidal plan and denies suicidal intent; + reports suicidal thoughts (intermittent passive thoughts ) Homicidal Thoughts: denies homicidal thoughts Hallucinations: no auditory hallucinations and no visual hallucinations Cognition: recent memory grossly intact, remote memory grossly intact, attention grossly intact and language grossly intact Estimated Intelligence: consistent with education level Insight: + limited insight Judgment: + limited judgement Vital Signs (Past 24 Hours) Last Vital Signs Temp 36.6 C 03/07/25 06:35 Pulse 75 03/07/25 06:35 Resp 16 03/07/25 06:35 BP 103/68 03/07/25 06:35 Pulse Ox 98 03/07/25 06:35 O2 Del Method Room Air 03/07/25 06:35 Results & Data ([facility]) Laboratory Results Laboratory Results - last 24 hr 03/06/25 03/07/25 21:12 08:34 POC Glucose 107 H 120 H Current Inpatient Medications Current Inpatient Medications: Current Inpatient Medications Acetaminophen (Acetaminophen 325 Mg Tab) 650 mg PO Q4H PRN PRN Reason: Headache or Minor Fever Stop: 04/03/25 09:25 Last Admin: 03/05/25 13:43 Dose: 650 mg Al Hydrox/Mg Hydrox/Simethicone (Aluminum/Magnesium Susp 30 Ml Udc) 30 ml PO Q4H PRN PRN Reason: GI Upset Stop: 04/03/25 09:25 Albuterol (Albuterol Hfa 8 Gm Inhaler) 2 puffs INH Q6H PRN PRN Reason: Shortness Of Breath Or Wheezing Stop: 04/03/25 13:50 Aspirin (Aspirin 81 Mg Ectab) 81 mg PO QAM [facility] Stop: 04/04/25 08:59 Last Admin: 03/07/25 08:48 Dose: 81 mg Bismuth Subsalicylate (Bismuth Subsalicylate 262 Mg Chew) 2 tab PO Q30M PRN PRN Reason: Loose Stool/Diarrhea Stop: 04/03/25 09:25 Doxepin HCl (Doxepin Hcl 10 Mg Capsule) 10 mg PO HS [facility] Stop: 04/04/25 21:59 Last Admin: 03/06/25 21:18 Dose: 10 mg Ergocalciferol (Ergocalciferol 1250 Mcg (50,000 Units) Cap) 1,250 mcg PO Th@0900 [facility] Stop: 04/10/25 08:59 Escitalopram Oxalate (Escitalopram Oxalate 10 Mg Tab) 10 mg PO QPM [facility] Stop: 04/05/25 20:59 Last Admin: 03/06/25 21:18 Dose: 10 mg Estradiol (Twice Weekly- Estradiol 0.05 Mg/24hrs Tdsy) 1 patch TD TuFr@0900 [facility] Stop: 04/04/25 08:59 Last Admin: 03/05/25 09:59 Dose: 1 patch Hydroxyzine HCl (Hydroxyzine Hcl 25 Mg Tab) 50 mg PO HSZ PRN PRN Reason: Insomnia Stop: 04/03/25 09:25 Last Admin: 03/04/25 20:53 Dose: 50 mg Hydroxyzine HCl (Hydroxyzine Hcl 25 Mg Tab) 25 mg PO Q4H PRN PRN Reason: Anxiety Stop: 04/03/25 09:25 Lorazepam (Lorazepam 0.5 Mg Tab) 0.5 mg PO DAILY [facility] Stop: 04/04/25 08:59 Last Admin: 03/07/25 08:50 Dose: 0.5 mg Lorazepam (Lorazepam 1 Mg Tab) 1 mg PO DAILYBD [facility] Stop: 04/03/25 17:14 Last Admin: 03/06/25 17:04 Dose: 1 mg Magnesium Hydroxide (Magnesium Hydroxide Susp 30 Ml Udc) 30 ml PO DAILY PRN PRN Reason: Constipation Stop: 04/03/25 09:25 Metformin HCl (Metformin Hcl Er 500 Mg Tabcr) 1,000 mg PO BID [facility] Stop: 04/03/25 20:59 Last Admin: 03/07/25 08:48 Dose: 1,000 mg Propranolol HCl (Propranolol Hcl 10 Mg Tab) 10 mg PO TID PRN PRN Reason: anxiety Stop: 04/04/25 20:59 Last Admin: 03/06/25 23:39 Dose: 10 mg Rosuvastatin Calcium (Rosuvastatin Calcium 10 Mg Tab) 10 mg PO QAM [facility] Stop: 04/04/25 08:59 Last Admin: 03/07/25 08:48 Dose: 10 mg Sodium Chloride (Sodium Chloride 0.65% Na Soln 45 Ml ([place])) 1 - 2 sprays NA PRN PRN PRN Reason: Nasal Dryness/Congestion Stop: 04/03/25 09:25 Venlafaxine HCl (Venlafaxine Hcl Xr 37.5 Mg Capxr) 37.5 mg PO QAM [facility] Stop: 04/05/25 14:29 Last Admin: 03/07/25 08:48 Dose: 37.5 mg Mental Health & Subst Abuse Tx Psychiatrist Name of Psychiatrist: [facility]-Dr. Lehman Psychiatrist's Therapist Name of Therapist: Online therapist from [place] Pencil Maker Name of Pencil Maker: [facility] Post Discharge Appointments Primary Care Physician Name Of Family Doctor/PCP: [facility]-Dr. Karla Romero Primary Care Provider Appointment Comment: Follow up as needed Contact Information Discharge Discharge Address: [facility] [address], [place] [address]
[2025-03-07] MEDS: ESCITALOPRAM OXALATE 10 MG TAB PO SCH (21:16)
[2025-03-08] MEDS: VENLAFAXINE HCL XR 75 MG CAPXR PO SCH (08:38)
--- NOTE | 2025-03-08 09:05 | Psychiatric Progress Note ---
Date of Service March 08, 2025 Impression / Recommendations Impression PHILIP OSPINA is a 49-year-old woman who currently lives in [place] with her sister, two nephews, and her son, has a history of major depression, anxiety, and was admitted on 03/04/25 08:06 on a 201 voluntary commitment for severe depression and difficulty attending to ADLs. Diagnostically consistent with major depressive disorder with anxious distress as well as generalized anxiety disorder in the context of multiple psychosocial stressors including housing instability, financial concerns and caring for a son with autism as well as difficulty coping with the end of relationship. She has had increasing functional impairment in the outpatient setting despite weekly outpatient appointments with her psychiatric provider and multiple recent medication changes and augmentations in an attempt to improve her symptoms. A: Some anxiety today and depression but affect is less flat with a few smiles. Sleep remains difficult but hard at this point to tell if she feels she isn't sleeping or objectively is awake much of the night so asked her to alert staff if she's awake during checks to help better assess this accurately. She's tolerating the cross-taper to venlafaxine ER. Overall, I spent a total of 36 minutes on this case including meeting with the patient, reviewing the chart, nursing report, orders, and documentation. (1) Recurrent severe major depressive disorder with anxiety: (2) ROSA (generalized anxiety disorder): (3) Type 2 diabetes mellitus: Plan 03/08/2025: -Discontinue escitalopram -Continue with Effexor XR 75mg daily 03/07/2025: -Decrease escitalopram to 5mg HS -Increase Effexor XR to 75mg tomorrow 03/06/2025: -Decrease escitalopram to 10mg HS -Start Effexor XR 37.5mg daily 03/05/2025: -Stop mirtazapine -Start doxepin 10mg HS -Discontinue [place] 03/04/2025: The patient was admitted to the [facility] ([facility]) on q15 min checks (behavioral with suicide precautions) for safety. The patient will participate in group, recreational, and milieu therapies and will be offered additional individual and family sessions as clinically appropriate. -stop Seroquel -Stop Adderall -Start mirtazapine 15mg HS -Continue lexapro 20mg daily -Continue [place] 150mg BID -Decrease Ativan to 0.5mg qAM and 1mg daily before dinner -Requesting outpatient psychiatry records to review past SSRI/SNRI trials and confirm escitalopram is a new addition Inventory Assets Strengths: supportive relationships, willing to get treatment Needs: safety and stabilization, medication adjustment, additional coping skills, increased outpatient services Suicide Risk Level Suicide Risk Level: Moderate (q15 min suicide checks) (increased depression and anxiety with functional impairment but denies active SI, states children are strong deterrent/reason for living and feels safe in the hospital) Suicide Risk Level Comments: Risk Factors Assessment Male: No : No Do You Have Access To A Gun?: No Health Problems: Yes Mental Health Diagnoses: Yes Substance Use Disorders: No Previous Attempt: No Family History of Suicide: No Previous Psychiatric Hospitalization: Yes Hopelessness: Yes Protective Factors Assessment Employed: Yes Stable Relationships: Yes Supportive Family: Yes Good Rapport with Provider: Yes Interval History Identifying Information PHILIP OSPINA is a 49-year-old woman who currently lives in [place] with her sister, two nephews, and her son, has a history of major depression, anxiety, and was admitted on 03/04/25 08:06 on a 201 voluntary commitment for severe depression and difficulty attending to ADLs. Chief Complaint "OK, I didn't sleep much". Review of Systems Sleep Information Total Hours of Sleep: 8 Meal Information Percent Meal Consumed - Breakfast: 50 Percent Meal Consumed - Lunch: 100 Percent Meal Consumed - Dinner: 100 Subjective Subjective Patient was seen & assessed and interval progress reviewed with treatment team. Slept 8 hours overnight per staff observation but she reports being awake during many of the checks. Used guided meditation last night. Did feel she was able to fall asleep after taking prn Vistaril. She agrees to wave or alert staff tonight if she is awake when they check on her so we can get a better sense of total sleep vs her perception of her sleep. Today reports her mood is "ok" with some anxiety about work but less depression. She was able to call and speak with her [employer] HR for FMLA paperwork. She denies any medication side effects except that she felt a little groggy this morning which she thinks might have been from the Vistaril. Physical Exam Psychiatric Orientation: alert and oriented x 3 Apperance: appropriately dressed and appropriately groomed Eye Contact: good eye contact Motor Behavior: no abnormal motor movements Speech: + abnormal rate/rhythm/volume of speech (soft) Affect: + constricted affect (but with some smiles) Mood: + depressed mood and + anxious mood Thought Process: + concrete thought process Thought Content: reality based without delusions Suicidal Thoughts: denies suicidal thoughts, denies suicidal plan and denies suicidal intent Homicidal Thoughts: denies homicidal thoughts Hallucinations: no auditory hallucinations and no visual hallucinations Cognition: recent memory grossly intact, remote memory grossly intact, attention grossly intact and language grossly intact Estimated Intelligence: consistent with education level Insight: + limited insight Judgment: + fair judgement Vital Signs (Past 24 Hours) Last Vital Signs Temp 36.2 C L 03/08/25 06:24 Pulse 81 03/08/25 06:25 Resp 16 03/08/25 06:24 BP 95/66 L 03/08/25 06:25 Pulse Ox 98 03/07/25 06:35 O2 Del Method Room Air 03/07/25 06:35 Results & Data ([facility]) Laboratory Results Laboratory Results - last 24 hr 03/07/25 03/08/25 21:14 08:35 POC Glucose 135 H 95 Current Inpatient Medications Current Inpatient Medications: Current Inpatient Medications Acetaminophen (Acetaminophen 325 Mg Tab) 650 mg PO Q4H PRN PRN Reason: Headache or Minor Fever Stop: 04/03/25 09:25 Last Admin: 03/05/25 13:43 Dose: 650 mg Al Hydrox/Mg Hydrox/Simethicone (Aluminum/Magnesium Susp 30 Ml Udc) 30 ml PO Q4H PRN PRN Reason: GI Upset Stop: 04/03/25 09:25 Albuterol (Albuterol Hfa 8 Gm Inhaler) 2 puffs INH Q6H PRN PRN Reason: Shortness Of Breath Or Wheezing Stop: 04/03/25 13:50 Aspirin (Aspirin 81 Mg Ectab) 81 mg PO QAM [facility] Stop: 04/04/25 08:59 Last Admin: 03/08/25 08:37 Dose: 81 mg Bismuth Subsalicylate (Bismuth Subsalicylate 262 Mg Chew) 2 tab PO Q30M PRN PRN Reason: Loose Stool/Diarrhea Stop: 04/03/25 09:25 Doxepin HCl (Doxepin Hcl 10 Mg Capsule) 10 mg PO HS [facility] Stop: 04/04/25 21:59 Last Admin: 03/07/25 21:18 Dose: 10 mg Ergocalciferol (Ergocalciferol 1250 Mcg (50,000 Units) Cap) 1,250 mcg PO Th @0900 [facility] Stop: 04/10/25 08:59 Escitalopram Oxalate (Escitalopram Oxalate 10 Mg Tab) 5 mg PO QPM [facility] Stop: 04/06/25 20:59 Last Admin: 03/07/25 21:16 Dose: 5 mg Estradiol (Twice Weekly- Estradiol 0.05 Mg/24hrs Tdsy) 1 patch TD TuFr@0900 [facility] Stop: 04/04/25 08:59 Last Admin: 03/05/25 09:59 Dose: 1 patch Hydroxyzine HCl (Hydroxyzine Hcl 25 Mg Tab) 50 mg PO HSZ PRN PRN Reason: Insomnia Stop: 04/03/25 09:25 Last Admin: 03/07/25 22:59 Dose: 50 mg Hydroxyzine HCl (Hydroxyzine Hcl 25 Mg Tab) 25 mg PO Q4H PRN PRN Reason: Anxiety Stop: 04/03/25 09:25 Lorazepam (Lorazepam 0.5 Mg Tab) 0.5 mg PO DAILY [facility] Stop: 04/04/25 08:59 Last Admin: 03/08/25 08:38 Dose: 0.5 mg Lorazepam (Lorazepam 1 Mg Tab) 1 mg PO DAILYBD [facility] Stop: 04/03/25 17:14 Last Admin: 03/07/25 17:24 Dose: 1 mg Magnesium Hydroxide (Magnesium Hydroxide Susp 30 Ml Udc) 30 ml PO DAILY PRN PRN Reason: Constipation Stop: 04/03/25 09:25 Metformin HCl (Metformin Hcl Er 500 Mg Tabcr) 1,000 mg PO BID [facility] Stop: 04/03/25 20:59 Last Admin: 03/08/25 08:37 Dose: 1,000 mg Propranolol HCl (Propranolol Hcl 10 Mg Tab) 10 mg PO TID PRN PRN Reason: anxiety Stop: 04/04/25 20:59 Last Admin: 03/06/25 23:39 Dose: 10 mg Rosuvastatin Calcium (Rosuvastatin Calcium 10 Mg Tab) 10 mg PO QAM [facility] Stop: 04/04/25 08:59 Last Admin: 03/08/25 08:37 Dose: 10 mg Sodium Chloride (Sodium Chloride 0.65% Na Soln 45 Ml ([place])) 1 - 2 sprays NA PRN PRN PRN Reason: Nasal Dryness/Congestion Stop: 04/03/25 09:25 Venlafaxine HCl (Venlafaxine Hcl Xr 75 Mg Capxr) 75 mg PO QAM [facility] Stop: 04/07/25 08:59 Last Admin: 03/08/25 08:38 Dose: 75 mg Mental Health & Subst Abuse Tx Psychiatrist Name of Psychiatrist: [facility]-Dr. Lehman Psychiatrist's Date Of Appointment With Psychiatric Provider: 04/21/25 Time of Appointment with Psychiatrist: 12PM Psychiatric Appointment Comment: Virtual Therapist Name of Therapist: Online therapist from [place] Conversion Man Name of Conversion Man: [employer] Post Discharge Appointments Primary Care Physician Name Of Family Doctor/PCP: [facility]-Dr. Karla Romero Primary Care Provider Appointment Comment: Follow up as needed Contact Information Discharge Discharge Address: [facility] [address], [place] [id number]
--- NOTE | 2025-03-09 09:09 | Psychiatric Progress Note ---
Date of Service March 09, 2025 Impression / Recommendations Impression PHILIP OSPINA is a 49-year-old woman who currently lives in [place] with her sister, two nephews, and her son, has a history of major depression, anxiety, and was admitted on 03/04/25 08:06 on a 201 voluntary commitment for severe depression and difficulty attending to ADLs. Diagnostically consistent with major depressive disorder with anxious distress as well as generalized anxiety disorder in the context of multiple psychosocial stressors including housing instability, financial concerns and caring for a son with autism as well as difficulty coping with the end of relationship. She has had increasing functional impairment in the outpatient setting despite weekly outpatient appointments with her psychiatric provider and multiple recent medication changes and augmentations in an attempt to improve her symptoms. A: Mood starting to show some improvement, but ongoing sense of poor sleep. Reviewed medication options, including restarting Seroquel vs increasing doxepin. She would like to try a higher dose of doxepin. Reviewed side effects including but not limited to: serotonin syndrome, sedation, anticholinergic side effects. Overall, I spent a total of 35 minutes on this case including meeting with the patient, reviewing the chart, nursing report, orders, and documentation. (1) Recurrent severe major depressive disorder with anxiety: (2) ROSA (generalized anxiety disorder): (3) Type 2 diabetes mellitus: Plan 03/09/2025: -Increase doxepin to 20mg HS 03/08/2025: -Discontinue escitalopram -Continue with Effexor XR 75mg daily 03/07/2025: -Decrease escitalopram to 5mg HS -Increase Effexor XR to 75mg tomorrow 03/06/2025: -Decrease escitalopram to 10mg HS -Start Effexor XR 37.5mg daily 03/05/2025: -Stop mirtazapine -Start doxepin 10mg HS -Discontinue [place] 03/04/2025: The patient was admitted to the [facility] ([facility] mental health unit) on q15 min checks (behavioral with suicide precautions) for safety. The patient will participate in group, recreational, and milieu therapies and will be offered additional individual and family sessions as clinically appropriate. -stop Seroquel -Stop Adderall -Start mirtazapine 15mg HS -Continue lexapro 20mg daily -Continue [place] 150mg BID -Decrease Ativan to 0.5mg qAM and 1mg daily before dinner -Requesting outpatient psychiatry records to review past SSRI/SNRI trials and confirm escitalopram is a new addition Inventory Assets Strengths: supportive relationships, willing to get treatment Needs: safety and stabilization, medication adjustment, additional coping skills, increased outpatient services Suicide Risk Level Suicide Risk Level: Moderate (q15 min suicide checks) (increased depression and anxiety with functional impairment but denies active SI, states children are strong deterrent/reason for living and feels safe in the hospital) Suicide Risk Level Comments: Risk Factors Assessment Male: No : No Do You Have Access To A Gun?: No Health Problems: Yes Mental Health Diagnoses: Yes Substance Use Disorders: No Previous Attempt: No Family History of Suicide: No Previous Psychiatric Hospitalization: Yes Hopelessness: Yes Protective Factors Assessment Employed: Yes Stable Relationships: Yes Supportive Family: Yes Good Rapport with Provider: Yes Interval History Identifying Information PHILIP OSPINA is a 49-year-old woman who currently lives in [place] with her sister, two nephews, and her son, has a history of major depression, anxiety, and was admitted on 03/04/25 08:06 on a 201 voluntary commitment for severe depression and difficulty attending to ADLs. Chief Complaint "better". Review of Systems Sleep Information Total Hours of Sleep: 6.5 Meal Information Percent Meal Consumed - Breakfast: 75 Percent Meal Consumed - Lunch: 50 Percent Meal Consumed - Dinner: 50 Subjective Subjective Patient was seen & assessed and interval progress reviewed with nursing and social work. Attended all groups. Doesn't interact much with peers but smiling more last evening. Took prn Vistaril at 11:35pm. Today she reports her mood is "better" with lessening anxiety and depression. She feels the groups are helping her mood. She continues to feel her sleep is "terrible". We review that staff did observe her sleeping at times overnight but she feels like she hardly slept. She denies any new medication side effects except that she feels more restless today but she was observed sitting for long periods of time watching a movie and was able to sit through groups without moving. She'd like to add or try different medication for sleep tonight. Physical Exam Psychiatric Orientation: alert and oriented x 3 Apperance: appropriately dressed and appropriately groomed Eye Contact: good eye contact Motor Behavior: no abnormal motor movements Speech: normal rate/rhythm/volume of speech Affect: + constricted affect (but with some smiles) Mood: + depressed mood and + anxious mood Thought Process: goal directed thought process Thought Content: reality based without delusions Suicidal Thoughts: denies suicidal thoughts, denies suicidal plan and denies suicidal intent Homicidal Thoughts: denies homicidal thoughts Hallucinations: no auditory hallucinations and no visual hallucinations Cognition: recent memory grossly intact, remote memory grossly intact, attention grossly intact and language grossly intact Estimated Intelligence: consistent with education level Insight: + fair insight Judgment: + fair judgement Vital Signs (Past 24 Hours) Last Vital Signs Temp 36.1 C L 03/09/25 06:19 Pulse 78 03/09/25 06:21 Resp 16 03/09/25 06:19 BP 98/67 L 03/09/25 06:21 Pulse Ox 98 03/07/25 06:35 O2 Del Method Room Air 03/07/25 06:35 Results & Data (U) Laboratory Results Laboratory Results - last 24 hr 03/08/25 03/09/25 21:27 08:14 POC Glucose 97 95 Current Inpatient Medications Current Inpatient Medications: Current Inpatient Medications Acetaminophen (Acetaminophen 325 Mg Tab) 650 mg PO Q4H PRN PRN Reason: Headache or Minor Fever Stop: 04/03/25 09:25 Last Admin: 03/05/25 13:43 Dose: 650 mg Al Hydrox/Mg Hydrox/Simethicone (Aluminum/Magnesium Susp 30 Ml Udc) 30 ml PO Q4H PRN PRN Reason: GI Upset Stop: 04/03/25 09:25 Albuterol (Albuterol Hfa 8 Gm Inhaler) 2 puffs INH Q6H PRN PRN Reason: Shortness Of Breath Or Wheezing Stop: 04/03/25 13:50 Aspirin (Aspirin 81 Mg Ectab) 81 mg PO QAM COUNTS INCLUDE 234 BEDS AT THE [facility] Stop: 04/04/25 08:59 Last Admin: 03/08/25 08:37 Dose: 81 mg Bismuth Subsalicylate (Bismuth Subsalicylate 262 Mg Chew) 2 tab PO Q30M PRN PRN Reason: Loose Stool/Diarrhea Stop: 04/03/25 09:25 Doxepin HCl (Doxepin Hcl 10 Mg Capsule) 10 mg PO HS COUNTS INCLUDE 234 BEDS AT THE [facility] Stop: 04/04/25 21:59 Last Admin: 03/08/25 21:24 Dose: 10 mg Ergocalciferol (Ergocalciferol 1250 Mcg (50,000 Units) Cap) 1,250 mcg PO Th@0900 COUNTS INCLUDE 234 BEDS AT THE [facility] Stop: 04/10/25 08:59 Estradiol (Twice Weekly- Estradiol 0.05 Mg/24hrs Tdsy) 1 patch TD TuFr@0900 [facility] Stop: 04/04/25 08:59 Last Admin: 03/05/25 09:59 Dose: 1 patch Hydroxyzine HCl (Hydroxyzine Hcl 25 Mg Tab) 50 mg PO HSZ PRN PRN Reason: Insomnia Stop: 04/03/25 09:25 Last Admin: 03/08/25 23:35 Dose: 50 mg Hydroxyzine HCl (Hydroxyzine Hcl 25 Mg Tab) 25 mg PO Q4H PRN PRN Reason: Anxiety Stop: 04/03/25 09:25 Lorazepam (Lorazepam 0.5 Mg Tab) 0.5 mg PO DAILY [facility] Stop: 04/04/25 08:59 Last Admin: 03/08/25 08:38 Dose: 0.5 mg Lorazepam (Lorazepam 1 Mg Tab) 1 mg PO DAILYBD [facility] Stop: 04/03/25 17:14 Last Admin: 03/08/25 17:16 Dose: 1 mg Magnesium Hydroxide (Magnesium Hydroxide Susp 30 Ml Udc) 30 ml PO DAILY PRN PRN Reason: Constipation Stop: 04/03/25 09:25 Metformin HCl (Metformin Hcl Er 500 Mg Tabcr) 1,000 mg PO BID [facility] Stop: 04/03/25 20:59 Last Admin: 03/08/25 21:24 Dose: 1,000 mg Propranolol HCl (Propranolol Hcl 10 Mg Tab) 10 mg PO TID PRN PRN Reason: anxiety Stop: 04/04/25 20:59 Last Admin: 03/06/25 23:39 Dose: 10 mg Rosuvastatin Calcium (Rosuvastatin Calcium 10 Mg Tab) 10 mg PO QAM [facility] Stop: 04/04/25 08:59 Last Admin: 03/08/25 08:37 Dose: 10 mg Sodium Chloride (Sodium Chloride 0.65% Na Soln 45 Ml ([place])) 1 - 2 sprays NA PRN PRN PRN Reason: Nasal Dryness/Congestion Stop: 04/03/25 09:25 Venlafaxine HCl (Venlafaxine Hcl Xr 75 Mg Capxr) 75 mg PO QAM [facility] Stop: 04/07/25 08:59 Last Admin: 03/08/25 08:38 Dose: 75 mg Mental Health & Subst Abuse Tx Psychiatrist Name of Psychiatrist: [facility]-Dr. Lehman Psychiatrist's Date Of Appointment With Psychiatric Provider: 04/21/25 Time of Appointment with Psychiatrist: 12PM Psychiatric Appointment Comment: Virtual Therapist Name of Therapist: Online therapist from [place] [employer] Name of Concrete Craftsman: [employer] Post Discharge Appointments Primary Care Physician Name Of Family Doctor/PCP: [facility]-Dr. Karla Romero Primary Care Provider Appointment Comment: Follow up as needed Contact Information Discharge Discharge Address: [facility] [address], [place] [address]
[2025-03-09] MEDS: DOXEPIN HCL 10 MG CAPSULE PO SCH (21:15)
[2025-03-10 06:45] VITALS: PULSE 86
--- NOTE | 2025-03-10 08:43 | Psychiatric Progress Note ---
Date of Service March 10, 2025 Impression / Recommendations Impression PHILIP OSPINA is a 49-year-old woman who currently lives in [place] with her sister, two nephews, and her son, has a history of major depression, anxiety, and was admitted on 03/04/25 08:06 on a 201 voluntary commitment for severe depression and difficulty attending to ADLs. Diagnostically consistent with major depressive disorder with anxious distress as well as generalized anxiety disorder in the context of multiple psychosocial stressors including housing instability, financial concerns and caring for a son with autism as well as difficulty coping with the end of relationship. She has had increasing functional impairment in the outpatient setting despite weekly outpatient appointments with her psychiatric provider and multiple recent medication changes and augmentations in an attempt to improve her symptoms. A: Mood starting to show some improvement, but ongoing sense of poor sleep. Reviewed medication options, including restarting Seroquel vs ongoing use of doxepin. She would like to go back on Seroquel as this helped in the past. Discussed risks, benefits and alternatives. Reviewed side effects including but not limited to: movement (TD, NMS), cardiac (QTc prolongation), and metabolic (stroke, insulin resistance) and necessity for fasting lipid and glucose labwork and AIMS done with score of 0. Overall, I spent a total of 37 minutes on this case including meeting with the patient, reviewing the chart, nursing report, orders, and documentation. (1) Recurrent severe major depressive disorder with anxiety: (2) ROSA (generalized anxiety disorder): (3) Type 2 diabetes mellitus: Plan 03/10/2025: -Discontinue doxepin -Start Seroquel 25mg HS and 25mg HS prn for insomnia -Fasting lipid panel and HbA1c tomorrow AM 03/09/2025: -Increase doxepin to 20mg HS 03/08/2025: -Discontinue escitalopram -Continue with Effexor XR 75mg daily 03/07/2025: -Decrease escitalopram to 5mg HS -Increase Effexor XR to 75mg tomorrow 03/06/2025: -Decrease escitalopram to 10mg HS -Start Effexor XR 37.5mg daily 03/05/2025: -Stop mirtazapine -Start doxepin 10mg HS -Discontinue [place] 03/04/2025: The patient was admitted to the [facility] (locked inpatient mental health unit) on q15 min checks (behavioral with suicide precautions) for safety. The patient will participate in group, recreational, and milieu therapies and will be offered additional individual and family sessions as clinically appropriate. -stop Seroquel -Stop Adderall -Start mirtazapine 15mg HS -Continue lexapro 20mg daily -Continue [place] 150mg BID -Decrease Ativan to 0.5mg qAM and 1mg daily before dinner -Requesting outpatient psychiatry records to review past SSRI/SNRI trials and confirm escitalopram is a new addition Inventory Assets Strengths: supportive relationships, willing to get treatment Needs: safety and stabilization, medication adjustment, additional coping skills, increased outpatient services Suicide Risk Level Suicide Risk Level: Moderate (q15 min suicide checks) (increased depression and anxiety with functional impairment but denies active SI, states children are strong deterrent/reason for living and feels safe in the hospital) Suicide Risk Level Comments: Risk Factors Assessment Male: No : No Do You Have Access To A Gun?: No Health Problems: Yes Mental Health Diagnoses: Yes Substance Use Disorders: No Previous Attempt: No Family History of Suicide: No Previous Psychiatric Hospitalization: Yes Hopelessness: Yes Protective Factors Assessment Employed: Yes Stable Relationships: Yes Supportive Family: Yes Good Rapport with Provider: Yes Interval History Identifying Information PHILIP OSPINA is a 49-year-old woman who currently lives in [place] with her sister, two nephews, and her son, has a history of major depression, anxiety, and was admitted on 03/04/25 08:06 on a 201 voluntary commitment for severe depression and difficulty attending to ADLs. Chief Complaint "A little tired because I didn't sleep last night". Review of Systems Sleep Information Total Hours of Sleep: 7.25 Meal Information Percent Meal Consumed - Breakfast: 75 Percent Meal Consumed - Lunch: 100 Percent Meal Consumed - Dinner: 50 Subjective Subjective Patient was seen & assessed and interval progress reviewed with treatment team. Took prn propranolol last evening. Spent time watching a movie with peers. Showering daily. Had a visit with her daughter and nephew last evening. Doing laundry. Rated her mood as "7" and "optimistic". Kristi reports some fatigue due to not sleeping last night. We discuss her sense of poor sleep with reported sleep of 7.25 hours and that this discrepancy may be due to the fact that she's sleeping but it doesn't feel restful or restorative. Discussed sleep hygiene and CBT-I, she continues to use sleep mediation before bed. She'd like to go back on Seroquel. She feels her depression and anxiety are improving but she worries how she will do outside of the hospital noting "I'm afraid I'll just start crying again". She denies any medication side effects, no sense of restlessness today. She would like to continue titration of Effexor. Physical Exam Psychiatric Orientation: alert and oriented x 3 Apperance: appropriately dressed and appropriately groomed Eye Contact: good eye contact Motor Behavior: no abnormal motor movements Speech: normal rate/rhythm/volume of speech Affect: + constricted affect (but with some smiles) Mood: + depressed mood and + anxious mood Thought Process: goal directed thought process Thought Content: reality based without delusions Suicidal Thoughts: denies suicidal thoughts, denies suicidal plan and denies suicidal intent Homicidal Thoughts: denies homicidal thoughts Hallucinations: no auditory hallucinations and no visual hallucinations Cognition: recent memory grossly intact, remote memory grossly intact, attention grossly intact and language grossly intact Estimated Intelligence: consistent with education level Insight: + fair insight Judgment: + fair judgement Vital Signs (Past 24 Hours) Last Vital Signs Temp 36.2 C L 03/10/25 06:44 Pulse 86 03/10/25 06:44 Resp 20 03/10/25 06:44 BP 93/62 L 03/10/25 06:44 Pulse Ox 98 03/10/25 06:44 O2 Del Method Room Air 03/10/25 06:44 Results & Data ([facility]) Laboratory Results Laboratory Results - last 24 hr 03/09/25 03/10/25 20:23 08:37 POC Glucose 168 H 104 H Current Inpatient Medications Current Inpatient Medications: Current Inpatient Medications Acetaminophen (Acetaminophen 325 Mg Tab) 650 mg PO Q4H PRN PRN Reason: Headache or Minor Fever Stop: 04/03/25 09:25 Last Admin: 03/05/25 13:43 Dose: 650 mg Al Hydrox/Mg Hydrox/Simethicone (Aluminum/Magnesium Susp 30 Ml Udc) 30 ml PO Q4H PRN PRN Reason: GI Upset Stop: 04/03/25 09:25 Albuterol (Albuterol Hfa 8 Gm Inhaler) 2 puffs INH Q6H PRN PRN Reason: Shortness Of Breath Or Wheezing Stop: 04/03/25 13:50 Aspirin (Aspirin 81 Mg Ectab) 81 mg PO QAM [facility] Stop: 04/04/25 08:59 Last Admin: 03/09/25 09:29 Dose: 81 mg Bismuth Subsalicylate (Bismuth Subsalicylate 262 Mg Chew) 2 tab PO Q30M PRN PRN Reason: Loose Stool/Diarrhea Stop: 04/03/25 09:25 Doxepin HCl (Doxepin Hcl 10 Mg Capsule) 20 mg PO HS [facility] Stop: 04/08/25 21:59 Last Admin: 03/09/25 21:15 Dose: 20 mg Ergocalciferol (Ergocalciferol 1250 Mcg (50,000 Units) Cap) 1,250 mcg PO Th@0900 [facility] Stop: 04/10/25 08:59 Estradiol (Twice Weekly- Estradiol 0.05 Mg/24hrs Tdsy) 1 patch TD TuFr@0900 [facility] Stop: 04/04/25 08:59 Last Admin: 03/09/25 09:30 Dose: 1 patch Hydroxyzine HCl (Hydroxyzine Hcl 25 Mg Tab) 50 mg PO HSZ PRN PRN Reason: Insomnia Stop: 04/03/25 09:25 Last Admin: 03/08/25 23:35 Dose: 50 mg Hydroxyzine HCl (Hydroxyzine Hcl 25 Mg Tab) 25 mg PO Q4H PRN PRN Reason: Anxiety Stop: 04/03/25 09:25 Lorazepam (Lorazepam 0.5 Mg Tab) 0.5 mg PO DAILY [facility] Stop: 04/04/25 08:59 Last Admin: 03/09/25 09:29 Dose: 0.5 mg Lorazepam (Lorazepam 1 Mg Tab) 1 mg PO DAILYBD [facility] Stop: 04/03/25 17:14 Last Admin: 03/09/25 17:31 Dose: 1 mg Magnesium Hydroxide (Magnesium Hydroxide Susp 30 Ml Udc) 30 ml PO DAILY PRN PRN Reason: Constipation Stop: 04/03/25 09:25 Metformin HCl (Metformin Hcl Er 500 Mg Tabcr) 1,000 mg PO BID [facility] Stop: 04/03/25 20:59 Last Admin: 03/09/25 21:15 Dose: 1,000 mg Propranolol HCl (Propranolol Hcl 10 Mg Tab) 10 mg PO TID PRN PRN Reason: anxiety Stop: 04/04/25 20:59 Last Admin: 03/09/25 23:04 Dose: 10 mg Rosuvastatin Calcium (Rosuvastatin Calcium 10 Mg Tab) 10 mg PO QAM [facility] Stop: 04/04/25 08:59 Last Admin: 03/09/25 09:28 Dose: 10 mg Sodium Chloride (Sodium Chloride 0.65% Na Soln 45 Ml ([place])) 1 - 2 sprays NA PRN PRN PRN Reason: Nasal Dryness/Congestion Stop: 04/03/25 09:25 Venlafaxine HCl (Venlafaxine Hcl Xr 75 Mg Capxr) 75 mg PO QAM [facility] Stop: 04/07/25 08:59 Last Admin: 03/09/25 09:29 Dose: 75 mg Mental Health & Subst Abuse Tx Psychiatrist Name of Psychiatrist: [facility]-Dr. Lehman Psychiatrist's Date Of Appointment With Psychiatric Provider: 04/21/25 Time of Appointment with Psychiatrist: 12PM Psychiatric Appointment Comment: Virtual Therapist Name of Therapist: Online therapist from [place] Scientific Director Name of Scientific Director: [employer] Phone Number for Scientific Director: [phone] Date of Appointment with Scientific Director: 03/15/25 Time of Appointment with Scientific Director: 1:00 PM Post Discharge Appointments Primary Care Physician Name Of Family Doctor/PCP: [facility]-Dr. Karla Romero Primary Care Provider Appointment Comment: Follow up as needed Contact Information Discharge Discharge Address: [facility] [address], [place] [address]
[2025-03-11 06:42] VITALS: RESP 16
[2025-03-11] MEDS: ERGOCALCIFEROL 1250 MCG (50,000 UNITS) CAP PO SCH (08:27)
[2025-03-11] MEDS: VENLAFAXINE HCL XR 150 MG CAPXR PO SCH (08:28)
--- NOTE | 2025-03-11 09:00 | Psychiatric Progress Note ---
Date of Service March 11, 2025 Impression / Recommendations Impression PHILIP OSPINA is a 49-year-old woman who currently lives in [place] with her sister, two nephews, and her son, has a history of major depression, anxiety, and was admitted on 03/04/25 08:06 on a 201 voluntary commitment for severe depression and difficulty attending to ADLs. Diagnostically consistent with major depressive disorder with anxious distress as well as generalized anxiety disorder in the context of multiple psychosocial stressors including housing instability, financial concerns and caring for a son with autism as well as difficulty coping with the end of relationship. She has had increasing functional impairment in the outpatient setting despite weekly outpatient appointments with her psychiatric provider and multiple recent medication changes and augmentations in an attempt to improve her symptoms. A: Ongoing mood improvement and tolerating higher dose of venlafaxine but still struggling with insomnia despite change to Seroquel. Seems her sleep challenges are multifactorial. She'd like to continue with Seroquel but at higher dose of 50mg HS. labwork reviewed and notable for elevated HbA1c (she is on metformin) and normal fasting lipid panel and Vit D. Safe for ongoing use of Seroquel with goal of this being short-term off-label use for insomnia with eventual sleep study and CBT-I recommendation. Overall, I spent a total of 50 minutes on this case including meeting with the patient, reviewing the chart, nursing report, orders, and documentation and completion of [place] paperwork. (1) Recurrent severe major depressive disorder with anxiety: (2) ROSA (generalized anxiety disorder): (3) Type 2 diabetes mellitus: Plan 03/11/2025: -Increase Seroquel to 50mg HS 03/10/2025: -Discontinue doxepin -Start Seroquel 25mg HS and 25mg HS prn for insomnia -Fasting lipid panel and HbA1c tomorrow AM 03/09/2025: -Increase doxepin to 20mg HS 03/08/2025: -Discontinue escitalopram -Continue with Effexor XR 75mg daily 03/07/2025: -Decrease escitalopram to 5mg HS -Increase Effexor XR to 75mg tomorrow 03/06/2025: -Decrease escitalopram to 10mg HS -Start Effexor XR 37.5mg daily 03/05/2025: -Stop mirtazapine -Start doxepin 10mg HS -Discontinue [place] 03/04/2025: The patient was admitted to the [facility] on q15 min checks (behavioral with suicide precautions) for safety. The patient will participate in group, recreational, and milieu therapies and will be offered additional individual and family sessions as clinically appropriate. -stop Seroquel -Stop Adderall -Start mirtazapine 15mg HS -Continue lexapro 20mg daily -Continue [place] 150mg BID -Decrease Ativan to 0.5mg qAM and 1mg daily before dinner -Requesting outpatient psychiatry records to review past SSRI/SNRI trials and confirm escitalopram is a new addition Inventory Assets Strengths: supportive relationships, willing to get treatment Needs: safety and stabilization, medication adjustment, additional coping skills, increased outpatient services Suicide Risk Level Suicide Risk Level: Moderate (q15 min suicide checks) (increased depression and anxiety with functional impairment but denies active SI, states children are strong deterrent/reason for living, mood improving and feels safe in the hospital) Suicide Risk Level Comments: Risk Factors Assessment Male: No : No Do You Have Access To A Gun?: No Health Problems: Yes Mental Health Diagnoses: Yes Substance Use Disorders: No Previous Attempt: No Family History of Suicide: No Previous Psychiatric Hospitalization: Yes Hopelessness: Yes Protective Factors Assessment Employed: Yes Stable Relationships: Yes Supportive Family: Yes Good Rapport with Provider: Yes Interval History Identifying Information PHILIP OSPINA is a 49-year-old woman who currently lives in [place] with her sister, two nephews, and her son, has a history of major depression, anxiety, and was admitted on 03/04/25 08:06 on a 201 voluntary commitment for severe depression and difficulty attending to ADLs. Chief Complaint "Sleepy". Review of Systems Sleep Information Total Hours of Sleep: 5.75 Meal Information Percent Meal Consumed - Breakfast: 25 Percent Meal Consumed - Lunch: 100 Percent Meal Consumed - Dinner: 25 Subjective Subjective Patient was seen & assessed and interval progress reviewed with nursing and social work. Attended groups. Showered unprompted. Rated her mood as "7" and "worried" about her housing. Social with peers and bright during interactions. She reports feeling "sleepy" today due to not sleeping well overnight. She was able to fall asleep after taking the additional Seroquel prn dose and she doesn't recall waking up overnight but felt tired and like she did get restful sleep this morning. She feels her sleep quality felt similar to doxepin. We reviewed that it's possible her sleep is unrestful due to potential contributor of something like AARON and she is agreeable to an outpatient sleep study. She is also willing to consider CBT-I as we reviewed that sleep studies can sometimes take a long time to get scheduled. She otherwise feels her mood is improving and she thinks she would like to consider discharge tomorrow. She has a support meeting this afternoon. Denies any medication side effects. Physical Exam Psychiatric Orientation: alert and oriented x 3 Apperance: appropriately dressed and appropriately groomed Eye Contact: good eye contact Motor Behavior: no abnormal motor movements Speech: normal rate/rhythm/volume of speech Affect: + constricted affect (but with some smiles) Mood: + anxious mood Thought Process: goal directed thought process Thought Content: reality based without delusions Suicidal Thoughts: denies suicidal thoughts, denies suicidal plan and denies suicidal intent Homicidal Thoughts: denies homicidal thoughts Hallucinations: no auditory hallucinations and no visual hallucinations Cognition: recent memory grossly intact, remote memory grossly intact, attention grossly intact and language grossly intact Estimated Intelligence: consistent with education level Insight: + fair insight Judgment: + fair judgement Vital Signs (Past 24 Hours) Last Vital Signs Temp 36.7 C 03/11/25 06:38 Pulse 86 03/11/25 06:38 Resp 16 03/11/25 06:38 BP 109/73 03/11/25 06:41 Pulse Ox 99 03/11/25 06:38 O2 Del Method Room Air 03/11/25 06:38 Results & Data ([facility]) Laboratory Results Laboratory Results - last 24 hr 03/10/25 03/11/25 20:50 08:22 POC Glucose 142 H 111 H Current Inpatient Medications Current Inpatient Medications: Current Inpatient Medications Acetaminophen (Acetaminophen 325 Mg Tab) 650 mg PO Q4H PRN PRN Reason: Headache or Minor Fever Stop: 04/03/25 09:25 Last Admin: 03/11/25 08:28 Dose: 650 mg Al Hydrox/Mg Hydrox/Simethicone (Aluminum/Magnesium Susp 30 Ml Udc) 30 ml PO Q4H PRN PRN Reason: GI Upset Stop: 04/03/25 09:25 Albuterol (Albuterol Hfa 8 Gm Inhaler) 2 puffs INH Q6H PRN PRN Reason: Shortness Of Breath Or Wheezing Stop: 04/03/25 13:50 Aspirin (Aspirin 81 Mg Ectab) 81 mg PO QAM [facility] Stop: 04/04/25 08:59 Last Admin: 03/11/25 08:27 Dose: 81 mg Bismuth Subsalicylate (Bismuth Subsalicylate 262 Mg Chew) 2 tab PO Q30M PRN PRN Reason: Loose Stool/Diarrhea Stop: 04/03/25 09:25 Ergocalciferol (Ergocalciferol 1250 Mcg (50,000 Units) Cap) 1,250 mcg PO Th@0900 [facility] Stop: 04/10/25 08:59 Last Admin: 03/11/25 08:27 Dose: 1,250 mcg Estradiol (Twice Weekly- Estradiol 0.05 Mg/24hrs Tdsy) 1 patch TD TuFr@0900 [facility] Stop: 04/04/25 08:59 Last Admin: 03/09/25 09:30 Dose: 1 patch Hydroxyzine HCl (Hydroxyzine Hcl 25 Mg Tab) 50 mg PO HSZ PRN PRN Reason: Insomnia Stop: 04/03/25 09:25 Last Admin: 03/08/25 23:35 Dose: 50 mg Hydroxyzine HCl (Hydroxyzine Hcl 25 Mg Tab) 25 mg PO Q4H PRN PRN Reason: Anxiety Stop: 04/03/25 09:25 Lorazepam (Lorazepam 0.5 Mg Tab) 0.5 mg PO DAILY [facility] Stop: 04/04/25 08:59 Last Admin: 03/11/25 08:27 Dose: 0.5 mg Lorazepam (Lorazepam 1 Mg Tab) 1 mg PO DAILYBD [facility] Stop: 04/03/25 17:14 Last Admin: 03/10/25 17:25 Dose: 1 mg Magnesium Hydroxide (Magnesium Hydroxide Susp 30 Ml Udc) 30 ml PO DAILY PRN PRN Reason: Constipation Stop: 04/03/25 09:25 Metformin HCl (Metformin Hcl Er 500 Mg Tabcr) 1,000 mg PO BID [facility] Stop: 04/03/25 20:59 Last Admin: 03/11/25 08:27 Dose: 1,000 mg Propranolol HCl (Propranolol Hcl 10 Mg Tab) 10 mg PO TID PRN PRN Reason: anxiety Stop: 04/04/25 20:59 Last Admin: 03/09/25 23:04 Dose: 10 mg Quetiapine Fumarate (Quetiapine Fumarate 25 Mg Tablet) 25 mg PO HS [facility] Stop: 04/09/25 21:59 Last Admin: 03/10/25 21:12 Dose: 25 mg Quetiapine Fumarate (Quetiapine Fumarate 25 Mg Tablet) 25 mg PO HS PRN PRN Reason: insomnia Stop: 04/09/25 21:59 Last Admin: 03/10/25 22:50 Dose: 25 mg Rosuvastatin Calcium (Rosuvastatin Calcium 10 Mg Tab) 10 mg PO QAM [facility] Stop: 04/04/25 08:59 Last Admin: 03/11/25 08:27 Dose: 10 mg Sodium Chloride (Sodium Chloride 0.65% Na Soln 45 Ml ([place])) 1 - 2 sprays NA PRN PRN PRN Reason: Nasal Dryness/Congestion Stop: 04/03/25 09:25 Venlafaxine HCl (Venlafaxine Hcl Xr 150 Mg Capxr) 150 mg PO QAM [facility] Stop: 04/10/25 08:59 Last Admin: 03/11/25 08:28 Dose: 150 mg Mental Health & Subst Abuse Tx Psychiatrist Name of Psychiatrist: [facility]-Dr. Lehman Psychiatrist's Date Of Appointment With Psychiatric Provider: 04/21/25 Time of Appointment with Psychiatrist: 12PM Psychiatric Appointment Comment: Virtual Therapist Name of Therapist: Online therapist from [place] [employer]oom Changeover Operator Name of Loom Changeover Operator: [employer] [facility] Phone Number for Loom Changeover Operator: [phone] Date of Appointment with Loom Changeover Operator: 03/15/25 Time of Appointment with Loom Changeover Operator: 1:00 PM Post Discharge Appointments Primary Care Physician Name Of Family Doctor/PCP: [facility]-Dr. Karla Romero Primary Care Provider Appointment Comment: Follow up as needed Contact Information Discharge Discharge Address: [facility] [address]ayan [address], [place] [id number]
[2025-03-11 10:12] LABS: Hemoglobin A1C 5.9 % (4.5-5.6)
[2025-03-11 12:00] LABS: Cholesterol 135.0 mg/dl (0-200); HDL Cholesterol 34.0 mg/dl; Triglycerides 124.0 mg/dl (0-150)
[2025-03-12 06:53] VITALS: TEMP 97; O2SAT 98
--- NOTE | 2025-03-12 09:18 | Discharge Summary ---
Date of Service March 12, 2025 History of Present Illness Mary presents for psychiatric admission due to worsening anxiety symptoms and major depression with significant functional impairment over recent months in the context of multiple life stressors and medication changes. She reports crying frequently and "overthinking all the time", with her anxiety significantly impacting her daily functioning. Current stressors include needing to move from her home because her divorce settlement stipulates she must leave when her son turns 18, financial difficulties due to insufficient income from her job and concerns about her son who has autism and is in his senior year transitioning to life learning program after graduation. She continues to struggle with unresolved feelings towards an ex-boyfriend noting that the relationship ended 4 years ago but she still finds herself texting him. She describes struggling with low energy and motivation stating she lacks the energy to engage in activities with her son despite wanting to which makes her feel like she's an inadequate mother. She becomes tearful stating "I'm not a good mom" because she doesn't "do activities with him because I don't have the energy, I don't want to do anything". She reports difficulty getting out of bed in the morning and finds it overwhelming to perform basic tasks like making her son's breakfast or looking for new employment opportunities by logging onto the computer. She has lost interest in previously enjoyable activities such as going to the gym with friends. Sleeping patterns have been disrupted reporting she initially was sleeping more than normal but recently has had difficulty sleeping since medication changes were made with addition of a stimulant. She has also had very low energy and estimates a 5 to 10 pound weight loss over the last 1 month. She reports recent difficulty with things such as driving due to feeling scared though she is unsure why. She recalls last feeling well, years ago. She struggles to sit down and even look for jobs because sitting down in front of the computer makes her anxious. She finds even paying bills is overwhelming because of the mental effort. She identifies target symptoms of: job with better pay, "get well mentally" which she identifies as going to the gym and feeling happy. She is currently prescribed psychiatric medications: Adderall 10mg BID (started last Saturday, to help with low energy & depression), Lexapro (started last Saturday, now up to 20mg daily), lithium carbonate 150mg BID (for depression), switched to lorazepam 2mg BID on 02/16/2025, Seroquel 25mg HS (been on this for about 2 months), Psychiatric ROS notable for no current nor history of symptoms of lamine, psychosis, OCD nor eating disorder. Physical Exam Vital Signs (Past 24 Hours) Last Vital Signs Temp 36.1 C L 03/12/25 06:50 Pulse 86 03/11/25 06:38 Resp 16 03/12/25 06:50 BP 109/72 03/12/25 06:52 Pulse Ox 98 03/12/25 06:50 O2 Del Method Room Air 03/12/25 06:50 Principal Diagnosis Major Depressive Disorder, recurrent with anxious distress Psychiatric Data See daily stay summary. In short, patient was engaged with the social/therapeutic milieu of the unit, safety was maintained and the patient was cooperative with care. Medication changes included discontinuation of Suarez, Lexapro, and Adderall and initiation of venlafaxine ER for MDD/ROSA, decrease of ativan to 0.5mg qAM and 1mg daily before dinner for ROSA with goal of ongoing slow taper in outpatient setting, and titration of Seroquel to 50-75mg HS as off-label use for insomnia and they tolerated this well. Recommend outpatient sleep study and CBT-I. Baseline labs of fasting glucose, fasting lipid profile, and weight were preformed (see labwork results below). Recommend repeat weight in one month. Recommend repeat fasting glucose, HbA1c and fasting lipid profile every 12 weeks and then annually. If symptoms arise recommend checking BP, EKG, prolactin level as clinically indicated or relevant. A support session was held and safety plan was completed prior to discharge. They participated in safety planning and in discussions about ways to seek support and recognizing warning signs and utilizing coping skills. Reviewed ways to have their safety plan and contacts easily available should thoughts of SI re-emerge in the future. Reviewed importance of seeking emergency care should SI intensify, worsen or should they feel unsafe in the future which they agree to do. On the day of discharge they stated their mood was "nervous and happy" and remained future-oriented including spending time with her son and engaging in aftercare appointments for psychiatry, therapy and case management. Day of Discharge Assessment Today the patient voices readiness for discharge. They note improvement in mood and anxiety. They deny thoughts of harm to self or others. Thoughts remain organized and they are clinically improved from admission. There is no evidence of psychosis. They improved in the hospital with support and medication adjustments. They agree to take medications as prescribed and keep follow-up appointments. At the time of the discharge they are deemed to be stable and appropriate for outpatient level of care. They are not deemed to be at imminent risk of harm to self or others. They are aware of emergency and crisis services. Knows to call 911 or go to nearest emergency care center if in a crisis which cannot be handled as an outpatient. Suicide risk assessment: Acute risk is low given improvement in mood and denial of SI, lack of access to lethal means, some improvement in sleep, hopefulness. Chronic risk is moderate given some non-modifiable risk factors: psychiatric co-morbid diagnoses, prior psychiatric hospitalizations, but also with protective factors including employed, good social support, sense of responsibility to family and social supports, outpatient care in place, positive coping skills, positive problem solving, willingness to engage with treatment and self-observation. Counseled on ways to reduce acute and chronic risk including engaging with outpatient providers, using safety plan if needed, utilizing supports, taking medication, and using coping skills and consideration for CBT-I to help with sleep. Modifiable risk factors of anxiety and depression were addressed during hospitalization through development of new coping skills, support meeting, safety planning, and medication adjustments. Discharge physical exam: See admission H&P, MSE per above and day of discharge summary. Overall, I spent a total of 35 minutes on this case including meeting with the patient, reviewing the chart, nursing report, multidisciplinary team meeting, discharge orders, anticipatory planning, safety planning, risk assessment and documentation. Transition of Care Transition Of Care Record: was reviewed with the patient Advance Directives Advance Directives Information Provided: Yes Advance Directives: No Mental Health Advance Directive: No Advance Directives on File: No Living Will: No Power of Dot Etcher Apprentice: No Advance Directives Reason:: Declines as Mental Health Visit. Suicide Risk Level Suicide Risk Level Comments: see assessment above Risk Factors Assessment Male: No : No Do You Have Access To A Gun?: No Health Problems: Yes Mental Health Diagnoses: Yes Substance Use Disorders: No Previous Attempt: No Family History of Suicide: No Previous Psychiatric Hospitalization: Yes Hopelessness: No Protective Factors Assessment Employed: Yes Stable Relationships: Yes Supportive Family: Yes Good Rapport with Provider: Yes Discharge Data Lab Results 03/03/25 03/03/2525 17:00 23:23 20:48 WBC 13.18 H RBC 5.36 Hgb 14.9 Hct 43.0 MCV 80.2 MCH 27.8 MCHC 34.7 RDW Std Deviation 37.3 RDW Coeff of Nakul 13.0 Plt Count 399 MPV 9.8 Immature Gran % (Auto) 0.2 Neut % (Auto) 68.5 Lymph % (Auto) 24.7 Howell % (Auto) 5.6 Eos % (Auto) 0.5 Baso % (Auto) 0.5 Neut # (Auto) 9.03 H Lymph # (Auto) 3.25 Howell # (Auto) 0.74 H Eos # (Auto) 0.07 Baso # (Auto) 0.06 Immature Gran # (Auto) 0.03 Sodium 140 Potassium 3.5 Chloride 105 Carbon Dioxide 26 Anion Gap 9 BUN 16 Creatinine 0.85 Est Cr Clr Drug Dosing 68.3 eGFR 83.41 BUN/Creatinine Ratio 18.8 Glucose 91 POC Glucose 110 H Estimat Average Glucose Hemoglobin A1c Calcium 9.7 Total Bilirubin 0.3 AST 14 ALT 11 Alkaline Phosphatase 71 Total Protein 7.8 Albumin 4.8 Globulin 3.0 Albumin/Globulin Ratio 1.6 Triglycerides Cholesterol LDL Cholesterol, Calc VLDL Cholesterol, Calc HDL Cholesterol Cholesterol/HDL Ratio 25-OH Vitamin D Total TSH 1.960 Urine Color Yellow Urine Appearance Clear Urine pH 5.5 Ur Specific [place] 1.031 H Urine Protein 1+ H Urine Glucose (UA) Negative Urine Ketones 1+ H Urine Blood 3+ H Urine Nitrite Negative Urine Bilirubin Negative Urine Urobilinogen Negative Ur Leukocyte Esterase Negative Urine WBC (Auto) 0-5 Urine RBC (Auto) >20 H U Hyaline Cast (Auto) 0-2 U Epithel Cells (Auto) 6-10 H Urine Bacteria (Auto) 2+ H Calcium Oxalate Crystal Present A Urine Mucus Present A Urine Comment Salicylates < 3.0 L Urine Opiates Screen Neg Ur Methadone, Qual Neg Urine Fentanyl Screen Neg Acetaminophen < 3 L Urine Barbiturates Neg Ur Phencyclidine (PCP) Neg U Amphetamin/Meth Scrn Pos H MDMA (Ecstasy) Screen Pos H U Benzodiazepines Scrn Neg Suarez 0.2 L Ur Cocaine Metabolite Neg U Marijuana (THC) Screen Neg Ethyl Alcohol mg/dL < 10.0 SARS-CoV-2, RNA, NAAT NEGATIVE 03/05/25 03/05/25 03/06/25 09:55 20:23 08:36 WBC RBC Hgb Hct MCV MCH MCHC RDW Std Deviation RDW Coeff of Nakul Plt Count MPV Immature Gran % (Auto) Neut % (Auto) Lymph % (Auto) Howell % (Auto) Eos % (Auto) Baso % (Auto) Neut # (Auto) Lymph # (Auto) Howell # (Auto) Eos # (Auto) Baso # (Auto) Immature Gran # (Auto) Sodium Potassium Chloride Carbon Dioxide Anion Gap BUN Creatinine Est Cr Clr Drug Dosing eGFR BUN/Creatinine Ratio Glucose POC Glucose 101 H 147 H 101 H Estimat Average Glucose Hemoglobin A1c Calcium Total Bilirubin AST ALT Alkaline Phosphatase Total Protein Albumin Globulin Albumin/Globulin Ratio Triglycerides Cholesterol LDL Cholesterol, Calc VLDL Cholesterol, Calc HDL Cholesterol Cholesterol/HDL Ratio 25-OH Vitamin D Total TSH Urine Color Urine Appearance Urine pH Ur Specific [place] Urine Protein Urine Glucose (UA) Urine Ketones Urine Blood Urine Nitrite Urine Bilirubin Urine Urobilinogen Ur Leukocyte Esterase Urine WBC (Auto) Urine RBC (Auto) U Hyaline Cast (Auto) U Epithel Cells (Auto) Urine Bacteria (Auto) Calcium Oxalate Crystal Urine Mucus Urine Comment Salicylates Urine Opiates Screen Ur Methadone, Qual Urine Fentanyl Screen Acetaminophen Urine Barbiturates Ur Phencyclidine (PCP) U Amphetamin/Meth Scrn MDMA (Ecstasy) Screen U Benzodiazepines Scrn Suarez Ur Cocaine Metabolite U Marijuana (THC) Screen Ethyl Alcohol mg/dL SARS-CoV-2, RNA, NAAT 03/06/25 03/07/25 03/07/25 21:12 08:34 21:14 WBC RBC Hgb Hct MCV MCH MCHC RDW Std Deviation RDW Coeff of Nakul Plt Count MPV Immature Gran % (Auto) Neut % (Auto) Lymph % (Auto) Howell % (Auto) Eos % (Auto) Baso % (Auto) Neut # (Auto) Lymph # (Auto) Howell # (Auto) Eos # (Auto) Baso # (Auto) Immature Gran # (Auto) Sodium Potassium Chloride Carbon Dioxide Anion Gap BUN Creatinine Est Cr Clr Drug Dosing eGFR BUN/Creatinine Ratio Glucose POC Glucose 107 H 120 H 135 H Estimat Average Glucose Hemoglobin A1c Calcium Total Bilirubin AST ALT Alkaline Phosphatase Total Protein Albumin Globulin Albumin/Globulin Ratio Triglycerides Cholesterol LDL Cholesterol, Calc VLDL Cholesterol, Calc HDL Cholesterol Cholesterol/HDL Ratio 25-OH Vitamin D Total TSH Urine Color Urine Appearance Urine pH Ur Specific [place] Urine Protein Urine Glucose (UA) Urine Ketones Urine Blood Urine Nitrite Urine Bilirubin Urine Urobilinogen Ur Leukocyte Esterase Urine WBC (Auto) Urine RBC (Auto) U Hyaline Cast (Auto) U Epithel Cells (Auto) Urine Bacteria (Auto) Calcium Oxalate Crystal Urine Mucus Urine Comment Salicylates Urine Opiates Screen Ur Methadone, Qual Urine Fentanyl Screen Acetaminophen Urine Barbiturates Ur Phencyclidine (PCP) U Amphetamin/Meth Scrn MDMA (Ecstasy) Screen U Benzodiazepines Scrn Suarez Ur Cocaine Metabolite U Marijuana (THC) Screen Ethyl Alcohol mg/dL SARS-CoV-2, RNA, NAAT 03/08/25 03/08/25 03/09/25 08:35 21:27 08:14 WBC RBC Hgb Hct MCV MCH MCHC RDW Std Deviation RDW Coeff of Nakul Plt Count MPV Immature Gran % (Auto) Neut % (Auto) Lymph % (Auto) Howell % (Auto) Eos % (Auto) Baso % (Auto) Neut # (Auto) Lymph # (Auto) Howell # (Auto) Eos # (Auto) Baso # (Auto) Immature Gran # (Auto) Sodium Potassium Chloride Carbon Dioxide Anion Gap BUN Creatinine Est Cr Clr Drug Dosing eGFR BUN/Creatinine Ratio Glucose POC Glucose 95 97 95 Estimat Average Glucose Hemoglobin A1c Calcium Total Bilirubin AST ALT Alkaline Phosphatase Total Protein Albumin Globulin Albumin/Globulin Ratio Triglycerides Cholesterol LDL Cholesterol, Calc VLDL Cholesterol, Calc HDL Cholesterol Cholesterol/HDL Ratio 25-OH Vitamin D Total TSH Urine Color Urine Appearance Urine pH Ur Specific [place] Urine Protein Urine Glucose (UA) Urine Ketones Urine Blood Urine Nitrite Urine Bilirubin Urine Urobilinogen Ur Leukocyte Esterase Urine WBC (Auto) Urine RBC (Auto) U Hyaline Cast (Auto) U Epithel Cells (Auto) Urine Bacteria (Auto) Calcium Oxalate Crystal Urine Mucus Urine Comment Salicylates Urine Opiates Screen Ur Methadone, Qual Urine Fentanyl Screen Acetaminophen Urine Barbiturates Ur Phencyclidine (PCP) U Amphetamin/Meth Scrn MDMA (Ecstasy) Screen U Benzodiazepines Scrn Suarez Ur Cocaine Metabolite U Marijuana (THC) Screen Ethyl Alcohol mg/dL SARS-CoV-2, RNA, NAAT 03/09/25 03/10/25 03/10/25 20:23 08:37 20:50 WBC RBC Hgb Hct MCV MCH MCHC RDW Std Deviation RDW Coeff of Nakul Plt Count MPV Immature Gran % (Auto) Neut % (Auto) Lymph % (Auto) Howell % (Auto) Eos % (Auto) Baso % (Auto) Neut # (Auto) Lymph # (Auto) Howell # (Auto) Eos # (Auto) Baso # (Auto) Immature Gran # (Auto) Sodium Potassium Chloride Carbon Dioxide Anion Gap BUN Creatinine Est Cr Clr Drug Dosing eGFR BUN/Creatinine Ratio Glucose POC Glucose 168 H 104 H 142 H Estimat Average Glucose Hemoglobin A1c Calcium Total Bilirubin AST ALT Alkaline Phosphatase Total Protein Albumin Globulin Albumin/Globulin Ratio Triglycerides Cholesterol LDL Cholesterol, Calc VLDL Cholesterol, Calc HDL Cholesterol Cholesterol/HDL Ratio 25-OH Vitamin D Total TSH Urine Color Urine Appearance Urine pH Ur Specific [place] Urine Protein Urine Glucose (UA) Urine Ketones Urine Blood Urine Nitrite Urine Bilirubin Urine Urobilinogen Ur Leukocyte Esterase Urine WBC (Auto) Urine RBC (Auto) U Hyaline Cast (Auto) U Epithel Cells (Auto) Urine Bacteria (Auto) Calcium Oxalate Crystal Urine Mucus Urine Comment Salicylates Urine Opiates Screen Ur Methadone, Qual Urine Fentanyl Screen Acetaminophen Urine Barbiturates Ur Phencyclidine (PCP) U Amphetamin/Meth Scrn MDMA (Ecstasy) Screen U Benzodiazepines Scrn Suarez Ur Cocaine Metabolite U Marijuana (THC) Screen Ethyl Alcohol mg/dL SARS-CoV-2, RNA, NAAT 03/11/25 03/11/25 03/11/25 08:17 08:22 21:15 WBC RBC Hgb Hct MCV MCH MCHC RDW Std Deviation RDW Coeff of Nakul Plt Count MPV Immature Gran % (Auto) Neut % (Auto) Lymph % (Auto) Howell % (Auto) Eos % (Auto) Baso % (Auto) Neut # (Auto) Lymph # (Auto) Howell # (Auto) Eos # (Auto) Baso # (Auto) Immature Gran # (Auto) Sodium Potassium Chloride Carbon Dioxide Anion Gap BUN Creatinine Est Cr Clr Drug Dosing eGFR BUN/Creatinine Ratio Glucose POC Glucose 111 H 123 H Estimat Average Glucose 123 Hemoglobin A1c 5.9 H Calcium Total Bilirubin AST ALT Alkaline Phosphatase Total Protein Albumin Globulin Albumin/Globulin Ratio Triglycerides 124 Cholesterol 135 LDL Cholesterol, Calc 76 VLDL Cholesterol, Calc 25 HDL Cholesterol 34 Cholesterol/HDL Ratio 4.0 25-OH Vitamin D Total 54.8 TSH Urine Color Urine Appearance Urine pH Ur Specific [place] Urine Protein Urine Glucose (UA) Urine Ketones Urine Blood Urine Nitrite Urine Bilirubin Urine Urobilinogen Ur Leukocyte Esterase Urine WBC (Auto) Urine RBC (Auto) U Hyaline Cast (Auto) U Epithel Cells (Auto) Urine Bacteria (Auto) Calcium Oxalate Crystal Urine Mucus Urine Comment Salicylates Urine Opiates Screen Ur Methadone, Qual Urine Fentanyl Screen Acetaminophen Urine Barbiturates Ur Phencyclidine (PCP) U Amphetamin/Meth Scrn MDMA (Ecstasy) Screen U Benzodiazepines Scrn Suarez Ur Cocaine Metabolite U Marijuana (THC) Screen Ethyl Alcohol mg/dL SARS-CoV-2, RNA, NAAT 03/12/25 08:50 WBC RBC Hgb Hct MCV MCH MCHC RDW Std Deviation RDW Coeff of Nakul Plt Count MPV Immature Gran % (Auto) Neut % (Auto) Lymph % (Auto) Howell % (Auto) Eos % (Auto) Baso % (Auto) Neut # (Auto) Lymph # (Auto) Howell # (Auto) Eos # (Auto) Baso # (Auto) Immature Gran # (Auto) Sodium Potassium Chloride Carbon Dioxide Anion Gap BUN Creatinine Est Cr Clr Drug Dosing eGFR BUN/Creatinine Ratio Glucose POC Glucose 94 Estimat Average Glucose Hemoglobin A1c Calcium Total Bilirubin AST ALT Alkaline Phosphatase Total Protein Albumin Globulin Albumin/Globulin Ratio Triglycerides Cholesterol LDL Cholesterol, Calc VLDL Cholesterol, Calc HDL Cholesterol Cholesterol/HDL Ratio 25-OH Vitamin D Total TSH Urine Color Urine Appearance Urine pH Ur Specific [place] Urine Protein Urine Glucose (UA) Urine Ketones Urine Blood Urine Nitrite Urine Bilirubin Urine Urobilinogen Ur Leukocyte Esterase Urine WBC (Auto) Urine RBC (Auto) U Hyaline Cast (Auto) U Epithel Cells (Auto) Urine Bacteria (Auto) Calcium Oxalate Crystal Urine Mucus Urine Comment Salicylates Urine Opiates Screen Ur Methadone, Qual Urine Fentanyl Screen Acetaminophen Urine Barbiturates Ur Phencyclidine (PCP) U Amphetamin/Meth Scrn MDMA (Ecstasy) Screen U Benzodiazepines Scrn Suarez Ur Cocaine Metabolite U Marijuana (THC) Screen Ethyl Alcohol mg/dL SARS-CoV-2, RNA, NAAT Hospital Course (1) Recurrent severe major depressive disorder with anxiety: (2) ROSA (generalized anxiety disorder): (3) Type 2 diabetes mellitus: (4) Insomnia: Plan 03/12/2025: -She feels safe and ready for discharge 03/11/2025: -Increase Seroquel to 50mg HS 03/10/2025: -Discontinue doxepin -Start Seroquel 25mg HS and 25mg HS prn for insomnia -Fasting lipid panel and HbA1c tomorrow AM 03/09/2025: -Increase doxepin to 20mg HS 03/08/2025: -Discontinue escitalopram -Continue with Effexor XR 75mg daily 03/07/2025: -Decrease escitalopram to 5mg HS -Increase Effexor XR to 75mg tomorrow 03/06/2025: -Decrease escitalopram to 10mg HS -Start Effexor XR 37.5mg daily 03/05/2025: -Stop mirtazapine -Start doxepin 10mg HS -Discontinue Suarez 03/04/2025: The patient was admitted to the [facility] ([facility] inpatient mental health unit) on q15 min checks (behavioral with suicide precautions) for safety. The patient will participate in group, recreational, and milieu therapies and will be offered additional individual and family sessions as clinically appropriate. -stop Seroquel -Stop Adderall -Start mirtazapine 15mg HS -Continue lexapro 20mg daily -Continue Suarez 150mg BID -Decrease Ativan to 0.5mg qAM and 1mg daily before dinner -Requesting outpatient psychiatry records to review past SSRI/SNRI trials and confirm escitalopram is a new addition Mental Health & Subst Abuse Tx Psychiatrist Name of Psychiatrist: [facility]-Dr. Lehman Psychiatrist's Date Of Appointment With Psychiatric Provider: 04/21/25 Time of Appointment with Psychiatrist: 12PM Psychiatric Appointment Comment: Virtual Therapist Name of Therapist: Online therapist from [place] [facility] Appointment Comment: Please schedule follow up appt with your therapist Biblical Languages Professor Name of Biblical Languages Professor: [employer] [facility] Phone Number for Biblical Languages Professor: [phone] Date of Appointment with Biblical Languages Professor: 03/15/25 Time of Appointment with Biblical Languages Professor: 1:00 PM Post Discharge Appointments Primary Care Physician Name Of Family Doctor/PCP: [facility]-Dr. Karla Romero Primary Care Provider Appointment Comment: Follow up as needed Other #1: Name of Aftercare Appointment: [facility] (CBT-Insomnia therapy) [address] [place] [address] Phone Number of Aftercare Appointment: Aftercare Appointment Comment: Contact to schedule appt to engage in CBT- Insomnia therapy if interested Contact Information Discharge Discharge Address: [address], [place] [address] Discharge Plan Discharge Items Patient Disposition: Home - Self-Care Reason For Visit: MAJOR DEPRESSIVE DISORDER Discharge Diagnosis: Major Depressive Disorder with anxious distress Condition on Discharge: Fair Activity: Resume your previous activity Non-emergency contact: Primary Care Provider, Psychiatrist, Therapist and Collection Systems Consultant Call non-emergency contact if: you have any medication questions and your symptoms worsen Follow-up/Referrals: Karla Romero, [Primary Care Provider] - Diet: Regular Addtl Attending Provider Instructions: Optional mobile apps we discussed: -Suicide safety plan -Virtual Hope Box SPECIAL CARE INSTRUCTIONS: 1. Follow through with your scheduled aftercare appointments. If unable to keep an appointment, please call to reschedule. 2. Take your medication only as prescribed. Medication should not be changed or stopped without the approval of your doctor. In the event of worsening symptoms or concerns about side effects, contact your doctor immediately. 3. Utilize new healthy coping skills, anger management skills, and stress management skills learned during your hospitalization. Journal feelings and process them with a support person. Identify stressors or situations that may result in relapse, deterioration or inappropriate behaviors and develop a plan to deal with those issues. 4. If your coping skills are ineffective and you are in crisis, contact your outpatient providers for direction. If unable to reach your providers, please call the [facility] CRISIS LINE AT , go to the [facility] walk-in center at [address], [address], [place], or go to the closest Emergency Room. 5. Avoid alcohol and un-prescribed drugs. 6. You have been provided with the Mental Health Advance Directives Pamphlet for your review. 7. Your condition is stable for discharge to outpatient level of care, but recovery is an ongoing process. Ifthoughts to harm yourself or others return, follow the safety plan developed during your stay. Planning for a safe return home includes securing weapons. Our treatment team recommends weaponsbe removed from the home until your outpatient provider reassesses your progress. In rare cases where the items themselvescannot be removed, guns and ammunitionshould be secured separatelyand keys stored by a reliable personoutside of the home. If you were admitted on an involuntary commitment, the police or other legal authorities may be involved in this process. AFTERCARE APPOINTMENTS: * Please call your insurance company prior to your scheduled appointment to confirm your aftercare providers are covered. Take your insurance information to your appointments. WHO TO CALL AND WHEN: Medical Emergencies: For questions or emergencies related to your hospital stay, please contact the Inpatient Behavioral Health Unit at [phone]. A billing clinician is on-call 22/10 for the Behavioral Health Unit for emergencies At any time you feel your situation is an emergency, you may also call 911 immediately. National Crisis Hotline: 988 Pending Studies at Discharge: No Stand-Alone Forms: My [facility] Medications and DC Order Prescriptions: New quetiapine 25 mg Tablet 25 mg PO HS PRN (Reason: insomnia) 30 Days Qty: 30 0RF venlafaxine 150 mg Capsule,Extended Release 24hr 150 mg PO QAM 30 Days Qty: 30 0RF propranolol 10 mg Tablet 10 mg PO TID PRN (Reason: anxiety/restlessness) 30 Days Qty: 30 0RF lorazepam 0.5 mg Tablet 0.5 mg PO DAILY 30 Days Qty: 30 0RF lorazepam 1 mg Tablet 1 mg PO DAILYBD 30 Days Qty: 30 0RF quetiapine 50 mg tablet 50 mg PO HS 30 Days Qty: 30 0RF Continued albuterol sulfate 90 mcg/actuation HFA aerosol inhaler 2 puff inhalation Q6H PRN (Reason: shortness of breath or wheezing) Qty: 6.7 0RF rosuvastatin 5 mg tablet 10 mg PO QPM metformin 500 mg tablet extended release 24 hr 1,000 mg PO BID aspirin [Diana Low Dose Aspirin] 81 mg Tablet,Delayed Release (Dr/Ec) 81 mg PO QAM ergocalciferol (vitamin D2) 1,250 mcg (50,000 unit) Capsule 1,250 mcg PO WK estradiol 0.05 mg/24 hr patch semiweekly See Rx Instructions .ROUTE .COMPLEX Rx Instructions: patch transdermally apply new patch twice weekly Discontinued lithium carbonate 150 mg Capsule 150 mg PO BID quetiapine 25 mg Tablet 25 mg PO HS escitalopram oxalate 20 mg Tablet 20 mg PO QPM lorazepam 1 mg Tablet 1 mg PO BID dextroamphetamine-amphetamine 10 mg Tablet 10 mg PO BID Rx Instructions: administer doses at least 4-6 hours apart Discharge Orders: Discharge Order (Routine); Ordered 03/12/25 Ordered By: Scarlett Castorena Admission Data Admit Date/Time: 03/04/25 08:06 Attending Provider: Scarlett Castorena Admit Provider: Scarlett Castorena Primary Care Provider: Karla Romero Other Interventions: Discharge Summary Assessment (RN) Last Done: 03/12/25 09:56 Coding Level of Care Code 53583 D/C day mgmt > 30 min Diagnoses Recurrent severe major depressive disorder with anxiety F33.2; F41.9 ROSA (generalized anxiety disorder) F41.1 Type 2 diabetes mellitus E11.9 Insomnia G47.00
[2025-03-12 10:06] VITALS: BP 119/78
[2025-03-12 10:11] LABS: Amphetamine Urine, Confirm 10149 ng/mL (<250); MDA negative; MDEA negative; MDMA (Ecstasy) Urine, Confirm negative; Methamphetamine, Ur Confirm NEGATIVE ng/mL (<250)
[2025-03-12] MEDS ORDERED: DESTROY THIS MEDICATION ONE (11:30)
== END 2025-03-12 11:08 | disposition home or self-care (01) | DRG 885 ==
LOC: ED 16:20 → 3S 03-04 08:06